=== PATIENT | male | born 1960 | race Caucasian/White ===

== ENCOUNTER 2023-10-09 08:10 | Inpatient (IN) | payer MEDICARE ==
--- NOTE | 2023-10-09 08:26 | ED ---
General Adult HPI - General Source: patient, RN notes reviewed Mode of arrival: ambulatory Limitations: no limitations <Neeraj Avila - Last Filed: 10/09/23 08:23> <Zelalem Herman - Last Filed: 10/09/23 12:18> - General Stated complaint: Foot infection Time Seen by Provider: 10/09/23 08:24 - History of Present Illness Initial comments: 63-year-old male presents emergency Department chief complaint left foot infection. Patient states that he's had a prior toe amputation states that he's had prior bacteremia sepsis from his foot. Patient states that he is increasingly painful. Patient has seen Dr. Mckeon. (Neeraj Avila) - Related Data Home Medications Medication Instructions Recorded Confirmed Dextroamphetamine/Amphetamine 30 mg PO TID 09/25/14 09/29/14 [Adderall] oxyCODONE-APAP 10-325MG [Percocet 1 each PO Q6HR PRN 09/25/14 09/29/14 10-325 mg] Allergies Allergy/AdvReac Type Severity Reaction Status Date / Time No Known Allergies Allergy Verified 09/25/14 10:09 Review of Systems ROS Other: All systems not noted in ROS Statement are negative. <Neeraj Avila - Last Filed: 10/09/23 08:23> ROS Other: All systems not noted in ROS Statement are negative. <Zelalem Herman - Last Filed: 10/09/23 12:18> ROS Statement: Those systems with pertinent positive or pertinent negative responses have been documented in the HPI. Past Medical History Past Medical History: No Reported History History of Any Multi-Drug Resistant Organisms: None Reported Past Surgical History: Orthopedic Surgery Additional Past Surgical History / Comment(s): LT KNEE SCOPE Past Anesthesia/Blood Transfusion Reactions: No Reported Reaction Past Alcohol Use History: None Reported Past Drug Use History: None Reported - Past Family History Sister(s) Family Medical History: Cancer <Neeraj Avila - Last Filed: 10/09/23 08:23> General Exam <Neeraj Avila - Last Filed: 10/09/23 08:23> General appearance: alert, in no apparent distress Head exam: Present: atraumatic, normocephalic Eye exam: Present: normal appearance, PERRL ENT exam: Present: normal exam Neck exam: Present: normal inspection. Absent: tenderness, meningismus Respiratory exam: Present: normal lung sounds bilaterally. Absent: respiratory distress, wheezes Cardiovascular Exam: Present: regular rate, normal rhythm GI/Abdominal exam: Present: soft. Absent: distended, tenderness Extremities exam: Present: other (Ulceration with purulence at the left foot had of the fifth metatarsal) Neurological exam: Present: alert, oriented X3, CN II-XII intact. Absent: motor sensory deficit Skin exam: Present: warm, other (Cellulitis of the left foot) <Zelalem Herman - Last Filed: 10/09/23 12:18> - General Exam Comments Initial Comments: Visual Physical Exam Vital signs reviewed General: Well-appearing, nontoxic, no acute distress. Head: Normocephalic, atraumatic Eyes: PERRLA, EOMI ENT: Airway patent Chest: Nonlabored breathing Skin: No visual rash, normal skin tone Neuro: Alert and oriented 3 Musculoskeletal: No gross abnormalities (Neeraj Avila) Course Vital Signs 10/09/23 10/09/23 08:51 11:15 Temperature 98.4 F Pulse Rate 85 84 Respiratory 18 18 Rate Blood Pressure 112/78 126/75 O2 Sat by Pulse 97 95 Oximetry Medical Decision Making <Neeraj Avila - Last Filed: 10/09/23 08:23> - Lab Data Result diagrams: 10/09/23 10:51 10/09/23 10:51 <Zelalem Herman - Last Filed: 10/09/23 12:18> - Medical Decision Making I completed the quick note portion of this chart signed Neeraj Avila PA-C (Neeraj Avila) Was pt. sent in by a medical professional or institution ([facility], [employer], urgent care, hospital, or longterm...) When possible be specific @ -No Did you speak to anyone other than the patient for history (EMS, parent, family, police, friend...)? What history was obtained from this source @ -No Did you review nursing and triage notes (agree or disagree)? Why? @ -I reviewed and agree with nursing and triage notes Were old charts reviewed (outside hosp., previous admission, EMS record, old EKG, old radiological studies, urgent care reports/EKG's, longterm records)? Report findings @ -No old charts were reviewed Differential Diagnosis (chest pain, altered mental status, abdominal pain women, abdominal pain men, vaginal bleeding, weakness, fever, dyspnea, syncope, headache, dizziness, GI bleed, back pain, seizure, CVA, palpatations, mental health, musculoskeletal)? @ -not applicable EKG interpreted by me (3pts min.). @ -As above X-rays interpreted by me (1pt min.). @X-ray of the left foot, amputation of the distal metatarsal and left fifth digit with some erosive changes and possible fracture at the distal site. CT interpreted by me (1pt min.). @ -None done U/S interpreted by me (1pt. min.). @ -None done What testing was considered but not performed or refused? (CT, X-rays, U/S, labs)? Why? @ -None What meds were considered but not given or refused? Why? @ -None Did you discuss the management of the patient with other professionals (professionals i.e. , PA, PLATE WORKER HELPER, lab, RT, psych nurse, social sciences professor, digital communications manager, teacher, strategic intelligence officer, major case detective)? Give summary @[facility] physician group Was smoking cessation discussed for >3mins.? @ -No Was critical care preformed (if so, how long)? @ -No Were there social determinants of health that impacted care today? How? (Homelessness, low income, unemployed, alcoholism, drug addiction, transpor tation, low edu. Level, literacy, decrease access to med. care, [facility], rehab)? @ -No Was there de-escalation of care discussed even if they declined (Discuss DNR or withdrawal of care, Hospice)? DNR status @ -No What co-morbidities impacted this encounter? (DM, HTN, Smoking, COPD, CAD, Cancer, CVA, ARF, Chemo, Hep., AIDS, mental health diagnosis, sleep apnea, morbid obesity)? @ -Diabetic, hypertensive Was patient admitted / discharged? Hospital course, mention meds given and route, prescriptions, significant lab abnormalities, going to OR and other pertinent info. @ -[63-year-old male with ulceration and cellulitis of the left foot at the base of the left fifth digit prior dictation site. Elevated white count at 15. Significant cellulitis of the foot with purulent drainage. Patient started on IV antibiotics and admitted to internal medicine. Undiagnosed new problem with uncertain prognosis? @ -No Drug Therapy requiring intensive monitoring for toxicity (Heparin, Nitro, Insulin, Cardizem)? @ -No Were any procedures done? @ -No Diagnosis/symptom? @ -Diabetic foot ulceration with cellulitis Acute, or Chronic, or Acute on Chronic? @ -[Acute Uncomplicated (without systemic symptoms) or Complicated (systemic symptoms)? @Complicated Side effects of treatment? @ -No Exacerbation, Progression, or Severe Exacerbation? @ -No Poses a threat to life or bodily function? How? (Chest pain, USA, LA, pneumonia, PE, COPD, DKA, ARF, appy, cholecystitis, CVA, Diverticulitis, Homicidal, Suicidal, threat to staff... and all critical care pts) @Yes, sepsis (Zelalem Herman) - Lab Data Lab Results 10/09/23 10/09/23 10/09/23 Range/Units 10:51 10:51 10:51 WBC 15.2 H (3.8-10.6) k/uL RBC 4.53 (4.30-5.90) m/uL Hgb 14.4 (13.0-17.5) gm/dL Hct 41.9 (39.0-53.0) % MCV 92.6 (80.0-100.0) fL MCH 31.7 (25.0-35.0) pg MCHC 34.3 (31.0-37.0) g/dL RDW 12.7 (11.5-15.5) % Plt Count 163 (150-450) k/uL MPV 8.6 Neutrophils % 85 % Lymphocytes % 11 % Monocytes % 2 % Eosinophils % 1 % Basophils % 0 % Neutrophils # 13.0 H (1.3-7.7) k/uL Lymphocytes # 1.6 (1.0-4.8) k/uL Monocytes # 0.4 (0-1.0) k/uL Eosinophils # 0.1 (0-0.7) k/uL Basophils # 0.1 (0-0.2) k/uL Sodium 133 L (137-145) mmol/L Potassium 4.6 (3.5-5.1) mmol/L Chloride 100 (98-107) mmol/L Carbon Dioxide 20 L (22-30) mmol/L Anion Gap 13 mmol/L BUN 17 (9-20) mg/dL Creatinine 0.42 L (0.66-1.25) mg/dL Est GFR (CKD-EPI)AfAm >90 (>60 ml/min/1.73 sqM) Est GFR (CKD-EPI)NonAf >90 (>60 ml/min/1.73 sqM) Glucose 288 H (74-99) mg/dL Plasma Lactic Acid Jaziel 1.1 (0.7-2.0) mmol/L Calcium 8.4 (8.4-10.2) mg/dL Total Bilirubin 0.9 (0.2-1.3) mg/dL AST 46 (17-59) U/L ALT 53 H (4-49) U/L Alkaline Phosphatase 96 (38-126) U/L C-Reactive Protein 0.6 (<1.0) mg/dL Total Protein 7.2 (6.3-8.2) g/dL Albumin 3.8 (3.5-5.0) g/dL Disposition <Neeraj Avila - Last Filed: 10/09/23 08:23> Is patient prescribed a controlled substance at d/c from ED?: No Time of Disposition: 12:18 <Zelalem Herman - Last Filed: 10/09/23 12:18> Clinical Impression: Diabetic foot ulcer, Cellulitis Disposition: ADMITTED IP TO THIS HOSP Condition: Stable Referrals: None,Stated [Primary Care Provider] - 1-2 days
--- NOTE | 2023-10-09 09:35 | XR ---
EXAMINATION TYPE: XR foot complete LT DATE OF EXAM: 10/09/2023 9:08 AM CLINICAL INDICATION:Male, 63 years old with history of pain, infection; COMPARISON: None TECHNIQUE: XR foot complete LT examined in the AP, oblique, and lateral projections. FINDINGS/IMPRESSION: 1. Postsurgical changes of the left foot fifth digit metatarsal tarsal. Lucency through the cortex c ould represent fracture possibly in the setting of osteomyelitis suggesting pathologic fracture. 2. Fixation hardware appears intact.
[2023-10-09] MEDS ORDERED: KETOROLAC 15 MG/ML 1 ML VIAL IVP STA (10:30)
[2023-10-09] MEDS ORDERED: SODIUM CHLORIDE 0.9% 1,000 ML IV ONE (10:30)
[2023-10-09 11:18] LABS: Basophils # (A) 0.1 k/uL (0-0.2); Basophils % (A) 0 %; Eosinophils # (A) 0.1 k/uL (0-0.7); Eosinophils % (A) 1 %; HCT 41.9 % (39.0-53.0); HGB 14.4 gm/dL (13.0-17.5); Lymphocytes # (A) 1.6 k/uL (1.0-4.8); Lymphocytes % (A) 11 %; MCH 31.7 pg (25.0-35.0); MCHC 34.3 g/dL (31.0-37.0); MCV 92.6 fL (80.0-100.0); Mean Platelet Volume 8.6; Monocytes # (A) 0.4 k/uL (0-1.0); Monocytes % (A) 2 %; Neutrophils % (A) 85 %; Platelet Count 163 k/uL (150-450); RBC 4.53 m/uL (4.30-5.90); RDW 12.7 % (11.5-15.5); WBC 15.2 k/uL (3.8-10.6)
[2023-10-09 11:34] LABS: ALT 53 U/L (4-49); AST 46 U/L (17-59); African American GFR (CKD) >90 (>60 ml/min/1.73 sqM); Albumin 3.8 g/dL (3.5-5.0); Alkaline Phosphatase 96 U/L (38-126); Anion Gap 13 mmol/L; Blood Urea Nitrogen 17 mg/dL (9-20); C Reactive Protein 0.6 mg/dL (<1.0); Calcium 8.4 mg/dL (8.4-10.2); Carbon Dioxide 20 mmol/L (22-30); Chloride 100 mmol/L (98-107); Glucose 288 mg/dL (74-99); Non-African American GFR(CKD) >90 (>60 ml/min/1.73 sqM); Potassium 4.6 mmol/L (3.5-5.1); Sodium 133 mmol/L (137-145); Total Bilirubin 0.9 mg/dL (0.2-1.3); Total Protein 7.2 g/dL (6.3-8.2)
[2023-10-09] MEDS ORDERED: VANCOMYCIN IV PER PHARMACY 1 EACH MISC MISCELLANE PRN (11:59)
[2023-10-09] MEDS ORDERED: MORPHINE SULFATE 4 MG/ML SYRINGE IVP STA (11:59)
[2023-10-09] MEDS ORDERED: VANCOMYCIN 1,750 MG in SODIUM CHLORIDE 0.9% 500 ML 500 ML IVPB STA (12:01)
[2023-10-09] MEDS ORDERED: NALOXONE 0.4 MG/ML 1 ML VIAL IV PRN (12:11)
[2023-10-09] MEDS ORDERED: ACETAMINOPHEN TAB 325 MG TAB PO PRN (12:11)
[2023-10-09] MEDS: SODIUM CHLORIDE 0.9% 1,000 ML IV SCH (12:58)
--- NOTE | 2023-10-09 13:55 | P.GSCN ---
History of Present Illness History of present illness: 63-year-old gentleman patient well known to me from the wound clinic and left foot toe pressure done in the past patient has a wound on the lateral aspect of the foot patient came to the emergency room with history of pain redness and swelling patient has a wound on the lateral aspect of the foot with some skin edges are devitalized extremity report possible osteo- Medical history history of diabetes, peripheral vascular disease, chronic wound left lower extremity involving the lateral aspect of the foot Chest is clear is good and both lungs first and second sound present Abdomen is soft nontender Vascular femorals are 1+ bilateral PTDP not palpable patient has a wound on the lateral aspect the left foot with some redness noted on the dorsal and plantar aspect the foot and graft plan is patient IV antibiotic patient will need some debridement and deep culture we will arrange Past Medical History Past Medical History: No Reported History History of Any Multi-Drug Resistant Organisms: None Reported Past Surgical History: Orthopedic Surgery Additional Past Surgical History / Comment(s): LT KNEE SCOPE Past Anesthesia/Blood Transfusion Reactions: No Reported Reaction Past Alcohol Use History: None Reported Past Drug Use History: None Reported - Past Family History Sister(s) Family Medical History: Cancer Medications and Allergies Home Medications Medication Instructions Recorded Confirmed Type oxyCODONE-APAP 10-325MG [Percocet 1 tab PO Q6HR PRN 09/25/14 10/09/23 History 10-325 mg] INSULIN ASPART (NovoLOG) [NovoLOG 20 unit SQ AC-TID 10/09/23 10/09/23 History (formulary)] Insulin Glargine [Lantus Vial] 70 unit SQ HS 10/09/23 10/09/23 History Allergies Allergy/AdvReac Type Severity Reaction Status Date / Time No Known Allergies Allergy Verified 10/09/23 12:34 Surgical - Exam Vital Signs Temp Pulse Resp BP Pulse Ox 98.4 F 85 18 112/78 97 10/09/23 08:51 10/09/23 08:51 10/09/23 08:51 10/09/23 08:51 10/09/23 08:51 Results - Labs 10/09/23 10:51 10/09/23 10:51 Abnormal Lab Results - Last 24 Hours (Table) 10/09/23 10/09/23 Range/Units 10:51 10:51 WBC 15.2 H (3.8-10.6) k/uL Neutrophils # 13.0 H (1.3-7.7) k/uL Sodium 133 L (137-145) mmol/L Carbon Dioxide 20 L (22-30) mmol/L Creatinine 0.42 L (0.66-1.25) mg/dL Glucose 288 H (74-99) mg/dL ALT 53 H (4-49) U/L Diabetes panel 10/09/23 Range/Units 10:51 Sodium 133 L (137-145) mmol/L Potassium 4.6 (3.5-5.1) mmol/L Chloride 100 (98-107) mmol/L Carbon Dioxide 20 L (22-30) mmol/L BUN 17 (9-20) mg/dL Creatinine 0.42 L (0.66-1.25) mg/dL Glucose 288 H (74-99) mg/dL Calcium 8.4 (8.4-10.2) mg/dL AST 46 (17-59) U/L ALT 53 H (4-49) U/L Alkaline Phosphatase 96 (38-126) U/L Total Protein 7.2 (6.3-8.2) g/dL Albumin 3.8 (3.5-5.0) g/dL Calcium panel 10/09/23 Range/Units 10:51 Calcium 8.4 (8.4-10.2) mg/dL Albumin 3.8 (3.5-5.0) g/dL Pituitary panel 10/09/23 Range/Units 10:51 Sodium 133 L (137-145) mmol/L Potassium 4.6 (3.5-5.1) mmol/L Chloride 100 (98-107) mmol/L Carbon Dioxide 20 L (22-30) mmol/L BUN 17 (9-20) mg/dL Creatinine 0.42 L (0.66-1.25) mg/dL Glucose 288 H (74-99) mg/dL Calcium 8.4 (8.4-10.2) mg/dL Adrenal panel 10/09/23 Range/Units 10:51 Sodium 133 L (137-145) mmol/L Potassium 4.6 (3.5-5.1) mmol/L Chloride 100 (98-107) mmol/L Carbon Dioxide 20 L (22-30) mmol/L BUN 17 (9-20) mg/dL Creatinine 0.42 L (0.66-1.25) mg/dL Glucose 288 H (74-99) mg/dL Calcium 8.4 (8.4-10.2) mg/dL Total Bilirubin 0.9 (0.2-1.3) mg/dL AST 46 (17-59) U/L ALT 53 H (4-49) U/L Alkaline Phosphatase 96 (38-126) U/L Total Protein 7.2 (6.3-8.2) g/dL Albumin 3.8 (3.5-5.0) g/dL
--- NOTE | 2023-10-09 13:57 | P.PCN ---
Description of Procedure: Preoperative diagnoses is infected wound left foot lateral aspect of the foot Posterior same and Procedure patient was seen in the emergency room left foot has a wound on the lateral aspect with some devitalized tissue notices of the skin edges prepped and draped applied usual sterile manner 1% lidocaine for infected using sharp kn tarsha we excise that devitalized tissue down to separate his tissue there was some pus noted is drained we took the culture for anaerobic and aerobic was irrigated with saline medihoney gel applied to the wound post wound debridement measurement is is 2 x 2 by 1 cm is changed the dressing tomorrow patient IV antibiotic vision be continued
--- NOTE | 2023-10-09 16:54 | P.HPIM ---
History of Present Illness H&P Date: 10/09/23 Chief Complaint: foot infection 63 year old man with uncontrolled type 2 diabetes and history of left fifth toe amputation presented for infected wound with pustular drainage. Patient reports increasingly painful toe with pustular drainage over the last several days as well as increasing erythema over the dorsal aspect of his foot. He also reports fevers and chills to a T-max of 101.2 at home. He has been followed at wound care by Dr. Mckeon, who recommended patient come into the hospital for further evaluation. Patient denies nausea, vomiting, chest pain, palpitations, syncope, presyncope, cough, dyspnea, abdominal pain, constipation, diarrhea, dysuria, dyschezia. Patient further relates to me that his sugars have been out of control going up to as high as 800 at home. In the emergency room, patient was afebrile, 112/78, heart rate 85, 97% on room air. CBC was notable for leukocytosis of 15.2. Basic metabolic panel notable for sodium of 133, CO2 of 20. Glucose was 288. Liver function tests notable for ALT elevation of 53. CRP was 0.6. Foot x-ray does show lucency throughout the cortex which could represent fracture possibly in the setting of o steomyelitis. Case was discussed with the emergency room provider decision was made to admit the patient to hospital for sepsis secondary to diabetic foot infection. All Systems reviewed and pertinent positives and negatives noted in HPI, all other symptoms are negative Gen: in no apparent distress, resting comfortably in bed Eyes: PERRL, no scleral injection or icterus HENT: normocephalic, atraumatic, good hearing acuity, moist mucous membranes Neck: no tracheal deviation, full range of motion Resp: good air exchange, breathing comfortably with no accessory muscle use, no tactile fremitus CVS: good distal perfusion x 4, no pitting edema GI: soft, NTTP, ND, no hepatosplenomegaly : no suprapubic tenderness, no CVAT, marinelli catheter not present MSK: no clubbing, no cyanosis, no noted contractures of extremities Skin: no noted rashes, petechiae; temperature of skin is appropriate, left fifth toe amputation, also erythema with pustular drainage Neuro: moving all extremities without signs of weakness, CN II-XII intact Psych: cooperative, euthymic mood, insight and judgment intact Labs and imaging as above Assessment/plan: Sepsis Diabetic foot infection with uncontrolled diabetes type 2 Concern for osteomyelitis -Antibiotics: Vancomycin, cefepime to cover both MRSA and Pseudomonas -ID consultation -Blood cultures pending -Vascular surgery consultation, OR cultures pending -Strict sugar control: Resume patient's Levemir 70 units with 20 units before meals 3 times a day, add sliding scale insulin -A1c ordered -Pain control: Tylenol when necessary, morphine when necessary Patient is full code Past Medical History Past Medical History: No Reported History History of Any Multi-Drug Resistant Organisms: None Reported Past Surgical History: Orthopedic Surgery Additional Past Surgical History / Comment(s): LT KNEE SCOPE Past Anesthesia/Blood Transfusion Reactions: No Reported Reaction Past Alcohol Use History: None Reported Past Drug Use History: None Reported - Past Family History Sister(s) Family Medical History: Cancer Medications and Allergies Home Medications Medication Instructions Recorded Confirmed Type oxyCODONE-APAP 10-325MG [Percocet 1 tab PO Q6HR PRN 09/25/14 10/09/23 History 10-325 mg] INSULIN ASPART (NovoLOG) [NovoLOG 20 unit SQ AC-TID 10/09/23 10/09/23 History (formulary)] Insulin Glargine [Lantus Vial] 70 unit SQ HS 10/09/23 10/09/23 History Allergies Allergy/AdvReac Type Severity Reaction Status Date / Time No Known Allergies Allergy Verified 10/09/23 12:34 Physical Exam Osteopathic Statement: *. No significant issues noted on an osteopathic structural exam other than those noted in the History and Physical/Consult. Vitals: Vital Signs Temp Pulse Resp BP Pulse Ox 10/09/23 16:00 80 18 152/83 98 10/09/23 14:46 89 30 H 143/85 99 10/09/23 12:48 82 18 124/84 97 10/09/23 11:15 84 18 126/75 95 10/09/23 08:51 98.4 F 85 18 112/78 97 Intake and Output 10/09/23 10/09/23 10/09/23 06:59 14:59 22:59 Other: Weight 102.058 kg Results CBC & Chem 7: 10/09/23 10:51 10/09/23 10:51 Labs: Abnormal Lab Results - Last 24 Hours (Table) 10/09/23 10/09/23 Range/Units 10:51 10:51 WBC 15.2 H (3.8-10.6) k/uL Neutrophils # 13.0 H (1.3-7.7) k/uL Sodium 133 L (137-145) mmol/L Carbon Dioxide 20 L (22-30) mmol/L Creatinine 0.42 L (0.66-1.25) mg/dL Glucose 288 H (74-99) mg/dL ALT 53 H (4-49) U/L
[2023-10-09 17:40] LABS: Glucose,Whole Blood 317 mg/dL (70-110)
[2023-10-09] MEDS: INSULIN ASPART (NovoLOG) 100 UNIT/ML VIAL SQ SCH ×2 (17:49)
[2023-10-09] MEDS: MORPHINE SULFATE 4 MG/ML SYRINGE IVP PRN ×2 (17:49→23:18)
[2023-10-09] MEDS: oxyCODONE-APAP 10-325MG 1 EACH TAB PO PRN (20:17)
[2023-10-09] MEDS: CEFEPIME 2 GM in SODIUM CHLORIDE 0.9% 100 ML IVPB SCH (20:17)
[2023-10-09 20:36] LABS: Glucose,Whole Blood 305 mg/dL (70-110)
[2023-10-09] MEDS: INSULIN DETEMIR (LEVEMIR) 100 UNIT/ML SYR SQ SCH (21:38)
[2023-10-09] MEDS: VANCOMYCIN 1,750 MG in SODIUM CHLORIDE 0.9% 500 ML 500 ML IVPB SCH (21:38)
[2023-10-10] MEDS: SODIUM CHLORIDE 0.9% 1,000 ML IV SCH ×2 (02:06→19:20)
[2023-10-10] MEDS: VANCOMYCIN 1,750 MG in SODIUM CHLORIDE 0.9% 500 ML 500 ML IVPB SCH ×3 (05:58→20:20)
[2023-10-10 07:21] LABS: Glucose,Whole Blood 126 mg/dL (70-110)
[2023-10-10] MEDS: INSULIN ASPART (NovoLOG) 100 UNIT/ML VIAL SQ SCH ×7 (07:36→21:54)
[2023-10-10 07:42] LABS: African American GFR (CKD) >90 (>60 ml/min/1.73 sqM); Anion Gap 8 mmol/L; Blood Urea Nitrogen 9 mg/dL (9-20); Calcium 8.3 mg/dL (8.4-10.2); Carbon Dioxide 24 mmol/L (22-30); Chloride 103 mmol/L (98-107); Glucose 112 mg/dL (74-99); Non-African American GFR(CKD) >90 (>60 ml/min/1.73 sqM); Potassium 3.5 mmol/L (3.5-5.1); Sodium 135 mmol/L (137-145)
[2023-10-10] MEDS: CEFEPIME 2 GM in SODIUM CHLORIDE 0.9% 100 ML IVPB SCH ×2 (08:54→20:20)
[2023-10-10] MEDS: MORPHINE SULFATE 4 MG/ML SYRINGE IVP PRN ×2 (09:05→21:54)
--- NOTE | 2023-10-10 09:23 | PN ---
PROGRESS NOTE This is a 63-year-old gentleman, patient is known to me. He had a left foot 5th toe amputation done in the past. The patient has a wound on the lateral aspect of the foot. He has been coming to the wound clinic for local wound care. The patient noticed some drainage and some redness on the foot from the wound area. The patient has been admitted. We did the debridement and sent for deep culture. The patient is afebrile. Plan is we change the dressing daily with Medihoney gel. The patient is under care of Infectious Disease for IV antibiotic. We will follow with you. MMODL / IJN: [id number] /
[2023-10-10 10:55] LABS: Basophils # (A) 0.06 X 10*3/uL (0.00-0.10); Basophils % (A) 0.5 %; Eosinophils # (A) 0.12 X 10*3/uL (0.04-0.35); Eosinophils % (A) 1.1 %; HCT 38.1 % (39.6-50.0); HGB 13.1 g/dL (13.0-17.0); Lymphocytes # (A) 1.91 X 10*3/uL (0.90-5.00); Lymphocytes % (A) 17.3 %; MCH 30.2 pg (27.0-32.0); MCHC 34.4 g/dL (32.0-37.0); MCV 87.8 FL (80.0-97.0); Mean Platelet Volume 11.5 FL (9.5-12.2); Monocytes # (A) 0.56 X 10*3/uL (0.20-1.00); Monocytes % (A) 5.1 %; NRBC Per 100 WBC 0 X 10*3/uL (0.00-0.01); Neutrophils # (A) 8.33 X 10*3/uL (1.80-7.70); Neutrophils % (A) 75.7 %; Platelet Count 159 X 10*3/uL (140-440); RBC 4.34 X 10*6/uL (4.40-5.60); RDW 12.4 % (11.5-14.5); WBC 11.01 X 10*3/uL (4.50-10.00)
[2023-10-10] MEDS: oxyCODONE-APAP 10-325MG 1 EACH TAB PO PRN ×2 (11:31→20:21)
[2023-10-10] MEDS ORDERED: ALPRAZolam 0.5 MG TAB PO STA (11:33)
[2023-10-10 11:50] LABS: Glucose,Whole Blood 159 mg/dL (70-110)
--- NOTE | 2023-10-10 14:08 | P.PN ---
Subjective Progress Note Date: 10/10/23 Hospital Course: 63 year old man with uncontrolled type 2 diabetes and history of left fifth toe amputation presented for infected wound with pustular drainage. In the emergency room, patient was afebrile, 112/78, heart rate 85, 97% on room air. CBC was notable for leukocytosis of 15.2. Basic metabolic panel notable for sodium of 133, CO2 of 20. Glucose was 288. Liver function tests notable for ALT elevation of 53. CRP was 0.6. Foot x-ray does show lucency throughout the cortex which could represent fracture possibly in the setting of osteomyelitis. Case was discussed with the emergency room provider decision was made to admit the patient to hospital for sepsis secondary to diabetic foot infection. Vascular surgery following patient, status post debridement. On IV antibiotics. ID consulted. Subjective: Patient seen and examined at bedside. No acute events overnight. Patient has very tearful. Does have some left foot pain. He is not very compliant with his medications. Pertinent positives and negatives as discussed above, a complete review of systems was performed and all other systems are negative. Vitals Signs Reviewed. General: nontoxic, no distress, appears at stated age Derm: warm, dry, [dressing clean, dry, intact Head: atraumatic, normocephalic, symmetric Eyes: EOMI, no lid lag, anicteric sclera Mouth: no lip lesion, mucus membranes moist Cardiovascular: S1S2 reg, no murmur Lungs: CTA bilateral, no rhonchi, no rales , no accessory muscle use Abdominal: soft, nontender to palpation, no guarding, no appreciable organomegaly Ext: no gross muscle atrophy, no edema, no contractures Neuro: CN II-XI grossly intact, no focal neuro deficits, some expressive aphasia Psych: Alert, oriented, tearful Data Reviewed Today: Pertinent Labs: WBC 11.01, sodium 135, creatinine 0.34, blood sugars range between 112-305, A1c 12.7 Imaging: No new imaging Assessment and Plan: Patient is critically ill, prognosis guarded Active: Sepsis secondary to left foot osteomyelitis status post debridement Leukocytosis, improving -Continue IV vancomycin, monitor renal function for toxicity -Vascular surgery note reviewed, wound care -ID consulted, pending recommendations -Also on IV cefepime 2 g every 12 hours -Cultures pending -Pain control with oral Tylenol 650 every 6 hours as needed, oral Percocet 10 every 6 hours as needed, morphine 4 mg IV every 4 hours as needed -Okay to continue normal saline at 75 mL an hour Insulin-dependent type 2 diabetes, A1c 12.7 Medication noncompliance -Insulin Levemir 70 units daily at bedtime, aspart 20 units 3 times a day, insulin sliding scale insulin, monitor for hypoglycemia Expressive aphasia, Depressed mood -Check B12, TSH -CT head without contrast -Neuro symptoms happening for a few days DVT ppx: Subcu heparin Code status: Full code Anticipated discharge place: Pending clinical course Anticipated discharge time: Pending clinical course Objective - Vital Signs Vital signs: Vital Signs Temp 98.5 F 10/10/23 11:44 Pulse 81 10/10/23 11:44 Resp 17 10/10/23 11:44 BP 178/83 10/10/23 11:44 Pulse Ox 98 10/10/23 11:44 FiO2 Intake & Output 10/09/23 10/10/23 10/10/23 18:59 06:59 18:59 Intake Total 2100 Output Total 1500 1250 Balance 600 -1250 Weight 99.337 kg Intake: Intake, IV Titration 1500 Amount Cefepime 2 gm In Sodium 100 Chloride 0.9% 100 ml @ 25 mls/hr IVPB Q12HR [facility] Rx #:[id number] Sodium Chloride 0.9% 1, 900 000 ml @ 75 mls/hr IV . [id number] [facility] Rx#:[id number] Vancomycin 1,750 mg In 500 Sodium Chloride 0.9% 500 ml 500 ml @ 167 mls/hr IVPB Q8H [facility] Rx#: [id number] Oral 600 Output: Urine 1500 1250 Other: Voiding Method Urinal Urinal # Voids 1 3 - Labs CBC & Chem 7: 10/10/23 06:47 10/10/23 06:47 Labs: Abnormal Lab Results - Last 24 Hours (Table) 10/09/23 10/09/23 10/10/23 Range/Units 17:38 20:35 06:47 WBC (4.50-10.00) X 10*3/uL RBC (4.40-5.60) X 10*6/uL Hct (39.6-50.0) % Neutrophils # (1.80-7.70) X 10*3/uL Sodium (137-145) mmol/L Creatinine (0.66-1.25) mg/dL Glucose (74-99) mg/dL POC Glucose (mg/dL) 317 H 305 H (70-110) mg/dL Hemoglobin A1c 12.7 H (<=6.0) % Calcium (8.4-10.2) mg/dL 10/10/23 10/10/23 10/10/23 Range/Units 06:47 06:47 07:20 WBC 11.01 H (4.50-10.00) X 10*3/uL RBC 4.34 L (4.40-5.60) X 10*6/uL Hct 38.1 L (39.6-50.0) % Neutrophils # 8.33 H (1.80-7.70) X 10*3/uL Sodium 135 L (137-145) mmol/L Creatinine 0.34 L (0.66-1.25) mg/dL Glucose 112 H (74-99) mg/dL POC Glucose (mg/dL) 126 H (70-110) mg/dL Hemoglobin A1c (<=6.0) % Calcium 8.3 L (8.4-10.2) mg/dL 10/10/23 Range/Units 11:48 WBC (4.50-10.00) X 10*3/uL RBC (4.40-5.60) X 10*6/uL Hct (39.6-50.0) % Neutrophils # (1.80-7.70) X 10*3/uL Sodium (137-145) mmol/L Creatinine (0.66-1.25) mg/dL Glucose (74-99) mg/dL POC Glucose (mg/dL) 159 H (70-110) mg/dL Hemoglobin A1c (<=6.0) % Calcium (8.4-10.2) mg/dL Microbiology - Last 24 Hours (Table) 10/09/23 13:14 Gram Stain - Preliminary Foot - Left
[2023-10-10 14:19] LABS: Magnesium 1.8 mg/dL (1.6-2.3)
[2023-10-10 15:43] LABS: T4, Free (Free Thyroxine) 1.51 ng/dL (0.78-2.19)
[2023-10-10 17:34] LABS: Glucose,Whole Blood 196 mg/dL (70-110)
--- NOTE | 2023-10-10 18:17 | CT ---
EXAMINATION TYPE: CT brain wo con CT DLP: 1133.3 mGycm, Automated exposure control for dose reduction was used. DATE OF EXAM: 10/10/2023 5:18 PM COMPARISON: None. CLINICAL INDICATION:Male, 63 years old with history of expressive aphasia, APHASIA TECHNIQUE: Brain: Axial CT images of the brain were obtained with coronal and sagittal reformats created and rev iewed. Contrast used: None. Oral contrast used: None. FINDINGS: Brain: Extra-axial spaces: No abnormal extra-axial fluid collections. Ventricular system: Dilatation in proportion to cerebral atrophy. Cerebral parenchyma: Cerebral atrophy. Appearing left right basal ganglia. No acute intraparenchymal hemorrhage or mass effect. The davenport-white junction is well differentiated. Scattered hypoattenuating areas are seen within the white matter. Cerebellum: Unremarkable. Mass effect: No evidence of midline shift. Intracranial vasculature: unremarkable Soft tissues: Normal. Calvarium/osseous structures: No depressed skull fracture. Paranasal sinuses and mastoid air cells: Mild scattered paranasal sinus disease. Visualized orbits: Orbital contents are intact. IMPRESSION: 1. No acute intracranial process. 2. Nonspecific white matter changes, likely secondary to chronic small vessel ischemic disease.
[2023-10-10 20:13] LABS: Glucose,Whole Blood 423 mg/dL (70-110)
[2023-10-10] MEDS: INSULIN DETEMIR (LEVEMIR) 100 UNIT/ML SYR SQ SCH (20:20)
[2023-10-10] MEDS ORDERED: DEXTROSE 50% SYRINGE 50 ML IVP PRN ×2 (21:44)
[2023-10-10 21:50] LABS: Glucose,Whole Blood 300 mg/dL (70-110)
[2023-10-10] MEDS ORDERED: NICOTINE 14MG/24HR PATCH TRANSDERM STA (22:40)
[2023-10-11] MEDS: SODIUM CHLORIDE 0.9% 1,000 ML IV SCH ×2 (03:08→21:39)
[2023-10-11] MEDS ORDERED: VANCOMYCIN TROUGH DUE 1 EACH MISC MISCELLANE ONE (05:00)
[2023-10-11 07:23] LABS: Glucose,Whole Blood 193 mg/dL (70-110)
[2023-10-11] MEDS: oxyCODONE-APAP 10-325MG 1 EACH TAB PO PRN ×2 (07:38→14:42)
[2023-10-11] MEDS: VANCOMYCIN 1,750 MG in SODIUM CHLORIDE 0.9% 500 ML 500 ML IVPB SCH (07:38)
[2023-10-11 08:12] LABS: African American GFR (CKD) >90 (>60 ml/min/1.73 sqM); Non-African American GFR(CKD) >90 (>60 ml/min/1.73 sqM)
[2023-10-11] MEDS: CEFEPIME 2 GM in SODIUM CHLORIDE 0.9% 100 ML IVPB SCH (09:02)
[2023-10-11] MEDS: INSULIN ASPART (NovoLOG) 100 UNIT/ML VIAL SQ SCH ×7 (09:06→21:39)
--- NOTE | 2023-10-11 09:08 | P.CONS ---
History of Present Illness - Reason for Consult Consult date: 10/10/23 Diabetic foot ulcer Requesting physician: Henrique Lilly - Chief Complaint Left foot nonhealing wound and pain x days - History of Present Illness Patient is a 63-year-old male with a past medical history significant for diabetes mellitus current everyday smoker patient presented to the hospital yesterday morning for evaluation of left foot infection apparently the patient did have a previous left fifth toe diabetic foot infection from what the patient has developed bacteremia patient now developing a wound at his left foot lateral border patient mention symptom has been going on for few days is not very clear how he developed an ulcer of the patient complaining of pain which is excruciating moderate to severe intensity without any radiation with associated swelling redness and did have some foul-smelling drainage patient has been evaluated by vascular surgery and the patient did have a debridement of the wound and deep culture did not mention if the wound was extended down to the bone patient presentation to the hospital was afebrile did have a low-grade fever of 99.1 patient was not tachycardic hypotensive or hypoxic patient did have white count of 15.2 with a left shift creatinine 0.42 ALT mildly elevated local cultures obtained which is currently pending patient is currently on cefepime and vancomycin infectious disease was consulted for further management of antibiotic therapy patient did have a x-ray of the foot for surgical changes of the left fifth digit metatarsal amputation lucency through the cortex could represent fracture possibly setting of osteomyelitis Review of Systems Positive point and negatives has been mentioned in the HPI, complete review of systems was performed and all other systems are negative Past Medical History Past Medical History: Diabetes Mellitus History of Any Multi-Drug Resistant Organisms: None Reported Past Surgical History: Orthopedic Surgery Additional Past Surgical History / Comment(s): LT KNEE SCOPE, 5th left toe amputation Past Anesthesia/Blood Transfusion Reactions: No Reported Reaction Smoking Status: Current some day smoker Past Alcohol Use History: None Reported Past Drug Use History: None Reported - Past Family History Sister(s) Family Medical History: Cancer Medications and Allergies Home Medications Medication Instructions Recorded Confirmed Type oxyCODONE-APAP 10-325MG [Percocet 1 tab PO Q6HR PRN 09/25/14 10/09/23 History 10-325 mg] INSULIN ASPART (NovoLOG) [NovoLOG 20 unit SQ AC-TID 10/09/23 10/09/23 History (formulary)] Insulin Glargine [Lantus Vial] 70 unit SQ HS 10/09/23 10/09/23 History Allergies Allergy/AdvReac Type Severity Reaction Status Date / Time No Known Allergies Allergy Verified 10/09/23 12:34 Physical Exam Vitals: Vital Signs Temp Pulse Pulse Resp BP BP Pulse Ox 10/10/23 11:44 98.5 F 81 17 178/83 98 10/10/23 07:15 98.1 F 90 17 141/85 96 10/10/23 02:02 98.4 F 72 18 137/68 99 10/09/23 22:18 18 99 10/09/23 19:45 18 10/09/23 19:40 98.1 F 89 19 139/74 96 10/09/23 17:40 98.2 F 107 H 18 155/79 99 10/09/23 17:13 99.1 F 89 24 131/76 97 10/09/23 16:00 80 18 152/83 98 10/09/23 14:46 89 30 H 143/85 99 Intake and Output 10/09/23 10/10/23 10/10/23 22:59 06:59 14:59 Intake Total 2100 Output Total 1500 1250 Balance 600 -1250 Intake: Intake, IV Titration 1500 Amount Cefepime 2 gm In Sodium 100 Chloride 0.9% 100 ml @ 25 mls/hr IVPB Q12HR [facility] Rx #:[id number] Sodium Chloride 0.9% 1, 900 000 ml @ 75 mls/hr IV . [id number] [facility] Rx#:[id number] Vancomycin 1,750 mg In 500 Sodium Chloride 0.9% 500 ml 500 ml @ 167 mls/hr IVPB Q8H [facility] Rx#: [id number] Oral 600 Output: Urine 1500 1250 Other: Voiding Method Urinal Urinal # Voids 1 3 Weight 99.337 kg GENERAL DESCRIPTION: Elderly male lying in bed, no distress. No tachypnea or accessory muscle of respiration use. HEENT: Shows Pallor , no scleral icterus. Oral mucous membrane is dry. No pharyngeal erythema or thrush NECK: Trachea central, no thyromegaly. LUNGS: Unlabored breathing. Clear to auscultation anteriorly. No wheeze or crackle. HEART: S1, S2, regular rate and rhythm. No loud murmur ABDOMEN: Soft, no tenderness , guarding or rigidity, no organomegaly EXTREMITIES: Left foot and leg to border did have a wound minimal slough some surrounding swelling redness which is tender to touch. SKIN: No rash, no masses palpable. NEUROLOGICAL: The patient is awake, alert, oriented x3, mood and affect normal. Results CBC & Chem 7: 10/10/23 06:47 10/11/23 07:10 Labs: Abnormal Lab Results - Last 24 Hours (Table) 10/09/23 10/09/23 10/10/23 Range/Units 17:38 20:35 06:47 WBC (4.50-10.00) X 10*3/uL RBC (4.40-5.60) X 10*6/uL Hct (39.6-50.0) % Neutrophils # (1.80-7.70) X 10*3/uL Sodium (137-145) mmol/L Creatinine (0.66-1.25) mg/dL Glucose (74-99) mg/dL POC Glucose (mg/dL) 317 H 305 H (70-110) mg/dL Hemoglobin A1c 12.7 H (<=6.0) % Calcium (8.4-10.2) mg/dL 10/10/23 10/10/23 10/10/23 Range/Units 06:47 06:47 07:20 WBC 11.01 H (4.50-10.00) X 10*3/uL RBC 4.34 L (4.40-5.60) X 10*6/uL Hct 38.1 L (39.6-50.0) % Neutrophils # 8.33 H (1.80-7.70) X 10*3/uL Sodium 135 L (137-145) mmol/L Creatinine 0.34 L (0.66-1.25) mg/dL Glucose 112 H (74-99) mg/dL POC Glucose (mg/dL) 126 H (70-110) mg/dL Hemoglobin A1c (<=6.0) % Calcium 8.3 L (8.4-10.2) mg/dL 10/10/23 Range/Units 11:48 WBC (4.50-10.00) X 10*3/uL RBC (4.40-5.60) X 10*6/uL Hct (39.6-50.0) % Neutrophils # (1.80-7.70) X 10*3/uL Sodium (137-145) mmol/L Creatinine (0.66-1.25) mg/dL Glucose (74-99) mg/dL POC Glucose (mg/dL) 159 H (70-110) mg/dL Hemoglobin A1c (<=6.0) % Calcium (8.4-10.2) mg/dL Microbiology - Last 24 Hours (Table) 10/09/23 13:14 Gram Stain - Preliminary Foot - Left Assessment and Plan (1) Diabetic foot infection Current Visit: Yes Status: Acute Code(s): E11.628 - TYPE 2 DIABETES MELLITUS WITH OTHER SKIN COMPLICATIONS; L08.9 - LOCAL INFECTION OF THE SKIN AND LEBLANC BCUTANEOUS TISSUE, UNSP SNOMED Code(s): 585503999 (2) Diabetic foot ulcer Current Visit: Yes Status: Acute Code(s): E11.621 - TYPE 2 DIABETES MELLITUS WITH FOOT ULCER; L97.509 - NON-PRESSURE CHRONIC ULCER OTH PRT UNSP FOOT W UNSP SEVERITY SNOMED Code(s): 137204618 Plan: 1patient presented to the hospital with left foot lateral border wound in this patient previous history of diabetic foot infection requiring amputation of the left fifth toe s/p debridement of the wound patient did have elevated white count and abnormal x-ray suspicious for osteomyelitis 2-local culture has been obtained results will be followed 3-we will check inflammatory marker check a bone scan 4-we will continue patient on cefepime and vancomycin while waiting for the culture to finalize We will follow on clinical condition and cultures to further adjust medication if needed Thank you for this consultation we will follow the patient along with you Dictation was produced using [employer] dictation software. please excuse any grammatical, word or spelling errors. Time with Patient: Greater than 30
[2023-10-11 11:29] VITALS: BMI 30.5
[2023-10-11] MEDS: MORPHINE SULFATE 4 MG/ML SYRINGE IVP PRN ×2 (11:39→21:40)
[2023-10-11] MEDS: AMPICILLIN-SULBACTAM 3 GM in SODIUM CHLORIDE 0.9% 100 ML IVPB SCH ×3 (12:59→23:54)
[2023-10-11 13:00] LABS: Glucose,Whole Blood 130 mg/dL (70-110)
--- NOTE | 2023-10-11 13:26 | P.PN ---
Subjective Progress Note Date: 10/11/23 pustular drainage. In the emergency room, patient was afebrile, 112/78, heart rate 85, 97% on room air. CBC was notable for leukocytosis of 15.2. Basic metabolic panel notable for sodium of 133, CO2 of 20. Glucose was 288. Liver function tests notable for ALT elevation of 53. CRP was 0.6. Foot x-ray does show lucency throughout the cortex which could represent fracture possibly in the setting of osteomyelitis. Case was discussed with the emergency room provider decision was made to admit the patient to hospital for sepsis secondary to diabetic foot infection. Vascular surgery following patient, status post debridement. On IV antibiotics. ID consulted. Pending bone scan. Subjective: Patient seen and examined at bedside. No acute events overnight. Does have some left foot pain. He is not very compliant with his medications, Expressive aphasia continues Pertinent positives and negatives as discussed above, a complete review of systems was performed and all other systems are negative. Vitals Signs Reviewed. General: nontoxic, no distress, appears at stated age Derm: warm, dry, [dressing clean, dry, intact Head: atraumatic, normocephalic, symmetric Eyes: EOMI, no lid lag, anicteric sclera Mouth: no lip lesion, mucus membranes moist Cardiovascular: S1S2 reg, no murmur Lungs: CTA bilateral, no rhonchi, no rales , no accessory muscle use Abdominal: soft, nontender to palpation, no guarding, no appreciable organomegaly Ext: no gross muscle atrophy, no edema, no contractures Neuro: CN II-XI grossly intact, no focal neuro deficits, some expressive aphasia Psych: Alert, oriented, tearful Data Reviewed Today: Pertinent Labs: Creatinine 0.38, blood sugars range between 130 to 300, B12 628, TSH 0.116, free T4 1 0.51 Imaging: CT head did not show any acute process Assessment and Plan: Patient is critically ill, prognosis guarded Active: Sepsis secondary to left foot osteomyelitis status post debridement Leukocytosis, improving -Discussed management with ID, started on IV Unasyn 3 g every 6 hours, bone scan pending, patient may need further debridement -Vascular surgery also following, wound care -Wound cultures growing strep group B -Pain control with oral Tylenol 650 every 6 hours as needed, oral Percocet 10 every 6 hours as needed, morphine 4 mg IV every 4 hours as needed -Okay to continue normal saline at 75 mL an hour Insulin-dependent type 2 diabetes, A1c 12.7 Medication noncompliance -Insulin Levemir 70 units daily at bedtime, aspart 20 units 3 times a day, insulin sliding scale insulin, monitor for hypoglycemia Expressive aphasia, Depressed mood -Thyroid function, B12, CT head within normal limits -Possibly related to increased anxiety/depression, patient does not take any medications at home, will start on sertraline 12.5 daily -Neuro symptoms happening for a few days DVT ppx: Subcu heparin Code status: Full code Anticipated discharge place: Pending clinical course Anticipated discharge time: Pending clinical course Objective - Vital Signs Vital signs: Vital Signs Temp 98.4 F 10/11/23 07:44 Pulse 72 10/11/23 07:44 Resp 18 10/11/23 07:44 BP 136/79 10/11/23 07:44 Pulse Ox 98 10/11/23 07:44 FiO2 Intake & Output 10/10/23 10/11/23 10/11/23 18:59 06:59 18:59 Intake Total 900 Output Total 1250 700 Balance -350 -700 Weight 99.337 kg Intake: Intake, IV Titration 900 Amount Sodium Chloride 0.9% 1, 900 000 ml @ 75 mls/hr IV . [id number] [facility] Rx#:[id number] Output: Urine 1250 700 Other: Voiding Method Urinal Urinal Urinal # Voids 3 - Labs CBC & Chem 7: 10/10/23 06:47 10/11/23 07:10 Labs: Abnormal Lab Results - Last 24 Hours (Table) 10/10/23 10/10/23 10/10/23 Range/Units 06:47 17:32 20:12 Creatinine (0.66-1.25) mg/dL POC Glucose (mg/dL) 196 H 423 H (70-110) mg/dL TSH 0.116 L (0.465-4.680) mIU/L 10/10/23 10/11/23 10/11/23 Range/Units 21:49 07:06 07:10 Creatinine 0.38 L (0.66-1.25) mg/dL POC Glucose (mg/dL) 300 H 193 H (70-110) mg/dL TSH (0.465-4.680) mIU/L 10/11/23 Range/Units 12:59 Creatinine (0.66-1.25) mg/dL POC Glucose (mg/dL) 130 H (70-110) mg/dL TSH (0.465-4.680) mIU/L Microbiology - Last 24 Hours (Table) 10/09/23 10:51 Blood Culture - Preliminary Blood 10/09/23 10:51 Blood Culture - Preliminary Blood 10/09/23 13:14 Gram Stain - Preliminary Foot - Left Wound Culture - Preliminary Strep agalactiae - (group b)
[2023-10-11] MEDS: SERTRALINE 25 MG TAB PO SCH (14:33)
--- NOTE | 2023-10-11 15:55 | NM ---
EXAMINATION TYPE: NM bone 3 phase DATE OF EXAM: 10/11/2023 COMPARISON: X-ray 10/09/2023 CLINICAL INDICATION: Male, 63 years old with history of left diabetic foot wound and abnormal xray; Triple phase bone scintigraphy was performed following the injection of 23.0 mCi Tc 99m MDP. Immedia te images and 3 hours post injection images acquired. FINDINGS: There is increased flow to the left foot. Increased soft tissue uptake is seen overlying the fifth di git. Delayed uptake is seen throughout the left fifth digit. There is a moderate intensity uptake seen along the anterior margin of the calcaneus on the right whi ch is nonspecific. Correlate with x-ray. IMPRESSION: Findings are compatible with fracture. Pathologic fracture in the differential diagnosis as the bone appears somewhat lucent on the recent x-ray. Therefore, fracture superimposed on a background of oste omyelitis in the differential diagnosis
[2023-10-11 17:16] LABS: Glucose,Whole Blood 274 mg/dL (70-110)
[2023-10-11] MEDS: NICOTINE 14MG/24HR PATCH TRANSDERM SCH (18:08)
[2023-10-11 20:58] LABS: Glucose,Whole Blood 324 mg/dL (70-110)
[2023-10-11] MEDS: INSULIN DETEMIR (LEVEMIR) 100 UNIT/ML SYR SQ SCH (21:39)
[2023-10-12] MEDS: oxyCODONE-APAP 10-325MG 1 EACH TAB PO PRN ×4 (01:18→23:40)
[2023-10-12] MEDS: AMPICILLIN-SULBACTAM 3 GM in SODIUM CHLORIDE 0.9% 100 ML IVPB SCH ×4 (06:05→23:39)
[2023-10-12 07:35] LABS: Glucose,Whole Blood 62 mg/dL (70-110)
[2023-10-12] MEDS: INSULIN ASPART (NovoLOG) 100 UNIT/ML VIAL SQ SCH ×7 (07:44→20:44)
[2023-10-12 07:51] LABS: Glucose,Whole Blood 109 mg/dL (70-110)
[2023-10-12] MEDS: NICOTINE 14MG/24HR PATCH TRANSDERM SCH (08:15)
[2023-10-12] MEDS: SERTRALINE 25 MG TAB PO SCH (08:16)
[2023-10-12 11:08] LABS: Basophils # (A) 0.04 X 10*3/uL (0.00-0.10); Basophils % (A) 0.4 %; Eosinophils # (A) 0.14 X 10*3/uL (0.04-0.35); Eosinophils % (A) 1.5 %; HCT 39.2 % (39.6-50.0); HGB 13.7 g/dL (13.0-17.0); Lymphocytes # (A) 1.76 X 10*3/uL (0.90-5.00); Lymphocytes % (A) 18.4 %; MCH 30.6 pg (27.0-32.0); MCHC 34.9 g/dL (32.0-37.0); MCV 87.7 FL (80.0-97.0); Monocytes # (A) 0.59 X 10*3/uL (0.20-1.00); Monocytes % (A) 6.2 %; NRBC Per 100 WBC 0 X 10*3/uL (0.00-0.01); Neutrophils # (A) 7.01 X 10*3/uL (1.80-7.70); Neutrophils % (A) 73.3 %; Platelet Count 157 X 10*3/uL (140-440); RBC 4.47 X 10*6/uL (4.40-5.60); RDW 12.5 % (11.5-14.5); WBC 9.56 X 10*3/uL (4.50-10.00)
[2023-10-12 11:36] LABS: C Reactive Protein <0.30 mg/dL (0.00-0.80); Glucose 53 mg/dL (70-110)
[2023-10-12 11:37] LABS: Calcium 8.7 mg/dL (8.7-10.3); Carbon Dioxide 26.3 mmol/L (21.6-31.8); Chloride 105 mmol/L (96-109); Potassium 3.4 mmol/L (3.5-5.5); Sodium 142 mmol/L (135-145)
[2023-10-12 12:00] LABS: Glucose,Whole Blood 159 mg/dL (70-110)
[2023-10-12 12:13] LABS: Erythrocyte Sedimentation Rate 18 mm/Hr (0-20)
[2023-10-12] MEDS: MORPHINE SULFATE 4 MG/ML SYRINGE IVP PRN ×2 (12:16→19:51)
--- NOTE | 2023-10-12 12:55 | P.PN ---
Subjective Progress Note Date: 10/12/23 Hospital Course: 63 year old man with uncontrolled type 2 diabetes and history of left fifth toe amputation presented for infected wound with pustular drainage. In the emergency room, patient was afebrile, 112/78, heart rate 85, 97% on room air. CBC was notable for leukocytosis of 15.2. Basic metabolic panel notable for sodium of 133, CO2 of 20. Glucose was 288. Liver function tests notable for ALT elevation of 53. CRP was 0.6. Foot x-ray does show lucency throughout the cortex which could represent fracture possibly in the setting of osteomyelitis. Case was discussed with the emergency room provider decision was made to admit the patient to hospital for sepsis secondary to diabetic foot infection. Vascular surgery following patient, status post debridement. On IV antibiotics. ID consulted. Bone scan shows fracture superimposed on background of osteomyelitis likely Subjective: Patient seen and examined at bedside. No acute events overnight. Continues to have left foot pain. Pertinent positives and negatives as discussed above, a complete review of systems was performed and all other systems are negative. Vitals Signs Reviewed. General: nontoxic, no distress, appears at stated age Derm: warm, dry, [dressing clean, dry, intact Head: atraumatic, normocephalic, symmetric Eyes: EOMI, no lid lag, anicteric sclera Mouth: no lip lesion, mucus membranes moist Cardiovascular: S1S2 reg, no murmur Lungs: CTA bilateral, no rhonchi, no rales , no accessory muscle use Abdominal: soft, nontender to palpation, no guarding, no appreciable organomegaly Ext: no gross muscle atrophy, no edema, no contractures Neuro: CN II-XI grossly intact, no focal neuro deficits, some expressive aphasia Psych: Alert, oriented, tearful Data Reviewed Today: Pertinent Labs: WBC 9.56, hemoglobin 13.7, potassium 3.4, creatinine 0.4, negative CRP, blood sugars range between 53-159 Imaging: Bone scan shows fracture superimposed on a background of posterior mellitus very likely Assessment and Plan: Patient is critically ill, prognosis guarded Active: Left foot osteomyelitis status post debridement Echevarria foot fracture Sepsis, resolved Leukocytosis, resolved -ID following, on IV Unasyn 3 g every 6 hours -Vascular surgery also following, wound care -Wound cultures growing strep group B -Pain control with oral Tylenol 650 every 6 hours as needed, oral Percocet 10 every 6 hours as needed, morphine 4 mg IV every 4 hours as needed -Okay to continue normal saline at 75 mL an hour Insulin-dependent type 2 diabetes, A1c 12.7 Medication noncompliance Episode of hypoglycemia -Insulin decreased to Levemir 55 units daily at bedtime, aspart 20 units 3 times a day, insulin sliding scale insulin, monitor for hypoglycemia Expressive aphasia, resolving Depressed mood -Thyroid function, B12, CT head within normal limits -Possibly related to increased anxiety/depression, patient does not take any medications at home, started on sertraline 12.5 daily -Neuro symptoms happening for a few days DVT ppx: Subcu heparin Code status: Full code Anticipated discharge place: Pending clinical course Anticipated discharge time: Pending clinical course Objective - Vital Signs Vital signs: Vital Signs Temp 98 F 10/12/23 12:49 Pulse 77 10/12/23 12:49 Resp 19 10/12/23 12:49 BP 131/74 10/12/23 12:49 Pulse Ox 98 10/12/23 12:49 FiO2 Intake & Output 10/11/23 10/12/23 10/12/23 18:59 06:59 18:59 Intake Total 750 120 240 Output Total 600 2300 Balance 150 -2180 240 Weight 99.337 kg Intake: Oral 750 120 240 Output: Urine 600 2300 Other: Voiding Method Urinal Urinal Urinal # Voids 1 - Labs CBC & Chem 7: 10/12/23 06:56 10/12/23 06:56 Labs: Abnormal Lab Results - Last 24 Hours (Table) 10/11/23 10/11/23 10/11/23 Range/Units 12:59 17:14 20:55 Hct (39.6-50.0) % Potassium (3.5-5.5) mmol/L BUN (9.0-27.0) mg/dL Creatinine (0.6-1.5) mg/dL Glucose (70-110) mg/dL POC Glucose (mg/dL) 130 H 274 H 324 H (70-110) mg/dL 10/12/23 10/12/23 10/12/23 Range/Units 06:56 06:56 07:24 Hct 39.2 L (39.6-50.0) % Potassium 3.4 L (3.5-5.5) mmol/L BUN 8.0 L (9.0-27.0) mg/dL Creatinine 0.4 L (0.6-1.5) mg/dL Glucose 53 L (70-110) mg/dL POC Glucose (mg/dL) 62 L (70-110) mg/dL 10/12/23 Range/Units 11:56 Hct (39.6-50.0) % Potassium (3.5-5.5) mmol/L BUN (9.0-27.0) mg/dL Creatinine (0.6-1.5) mg/dL Glucose (70-110) mg/dL POC Glucose (mg/dL) 159 H (70-110) mg/dL Microbiology - Last 24 Hours (Table) 10/09/23 13:14 Anaerobic Culture - Preliminary Foot - Left Yeast 10/09/23 10:51 Blood Culture - Preliminary Blood 10/09/23 10:51 Blood Culture - Preliminary Blood 10/09/23 13:14 Gram Stain - Final Foot - Left Wound Culture - Final Strep agalactiae - (group b)
[2023-10-12] MEDS: SODIUM CHLORIDE 0.9% 1,000 ML IV SCH ×2 (13:17→20:46)
--- NOTE | 2023-10-12 14:44 | P.PN ---
Subjective Progress Note Date: 10/12/23 Principal diagnosis: Reason for follow-up is left diabetic foot infection and question of osteomyelitis Patient is a 63-year-old male with a past medical history significant for diabetes mellitus current everyday smoker patient presented to the hospital for evaluation of left foot infection, patient did have a wound on the left foot lateral border status post debridement he did have abnormal x-ray suspicious for osteomyelitis On today's evaluation that is 10/12/2023, the patient continues to be afebrile and is breathing comfortably on room air, and patient denies any shortness of breath, chest pain and no cough or sputum production, patient denies abdominal pain, no nausea/vomiting and no diarrhea has been reported, the patient pain to the left foot has decreased intensity Patient did have a white count normalized to 9.56, patient did have a ESR of 18 and a normal CRP bone scan with a question of fracture Objective - Vital Signs Vital signs: Vital Signs Temp 98 F 10/12/23 12:49 Pulse 77 10/12/23 12:49 Resp 19 10/12/23 12:49 BP 131/74 10/12/23 12:49 Pulse Ox 98 10/12/23 12:49 FiO2 Intake & Output 10/11/23 10/12/23 10/12/23 18:59 06:59 18:59 Intake Total 750 120 480 Output Total 600 2300 Balance 150 -2180 480 Weight 99.337 kg Intake: Oral 750 120 480 Output: Urine 600 2300 Other: Voiding Method Urinal Urinal Urinal # Voids 1 - Exam GENERAL DESCRIPTION: An elderly male lying in bed in no distress RESPIRATORY SYSTEM: Unlabored breathing , clear to auscultation anteriorly HEART: S1 S2 regular rate and rhythm , ABDOMEN: Soft , no tenderness EXTREMITIES: Left foot is currently dressed no drainage on the dressing - Labs CBC & Chem 7: 10/12/23 06:56 10/12/23 06:56 Labs: Abnormal Lab Results - Last 24 Hours (Table) 10/11/23 10/11/23 10/12/23 Range/Units 17:14 20:55 06:56 Hct 39.2 L (39.6-50.0) % Potassium (3.5-5.5) mmol/L BUN (9.0-27.0) mg/dL Creatinine (0.6-1.5) mg/dL Glucose (70-110) mg/dL POC Glucose (mg/dL) 274 H 324 H (70-110) mg/dL 10/12/23 10/12/23 10/12/23 Range/Units 06:56 07:24 11:56 Hct (39.6-50.0) % Potassium 3.4 L (3.5-5.5) mmol/L BUN 8.0 L (9.0-27.0) mg/dL Creatinine 0.4 L (0.6-1.5) mg/dL Glucose 53 L (70-110) mg/dL POC Glucose (mg/dL) 62 L 159 H (70-110) mg/dL Microbiology - Last 24 Hours (Table) 10/09/23 13:14 Anaerobic Culture - Preliminary Foot - Left Yeast 10/09/23 10:51 Blood Culture - Preliminary Blood 10/09/23 10:51 Blood Culture - Preliminary Blood 10/09/23 13:14 Gram Stain - Final Foot - Left Wound Culture - Final Strep agalactiae - (group b) Assessment and Plan (1) Diabetic foot infection Current Visit: Yes Status: Acute Code(s): E11.628 - TYPE 2 DIABETES MELLITUS WITH OTHER SKIN COMPLICATIONS; L08.9 - LOCAL INFECTION OF THE SKIN AND SUBCUTANEOUS TISSUE, UNSP SNOMED Code(s): 876658936 (2) Diabetic foot ulcer Current Visit: Yes Status: Acute Code(s): E11.621 - TYPE 2 DIABETES MELLITUS WITH FOOT ULCER; L97.509 - NON-PRESSURE CHRONIC ULCER OTH PRT UNSP FOOT W UNSP SEVERITY SNOMED Code(s): 358343816 Plan: 1patient presented to the hospital with left foot lateral border wound in this patient previous history of diabetic foot infection requiring amputation of the left fifth toe s/p debridement of the wound patient did have elevated white count and abnormal x-ray suspicious for osteomyelitis 2-local culture has been obtained and currently growing group B strep 3- patient did have a normal inflammatory marker and bone scan is not very convincing of osteomyelitis will review with the radiologist 4-for now Continue with Unasyn and monitor clinical course closely Dictation was produced using [employer] dictation software. please excuse any grammatical, word or spelling errors. Time with Patient: Less than 30
[2023-10-12 17:11] LABS: Glucose,Whole Blood 309 mg/dL (70-110)
[2023-10-12 20:12] LABS: Glucose,Whole Blood 229 mg/dL (70-110)
[2023-10-12] MEDS ORDERED: INSULIN DETEMIR (LEVEMIR) 100 UNIT/ML SYR SQ SCH (21:00)
[2023-10-13] MEDS: SODIUM CHLORIDE 0.9% 1,000 ML IV SCH (02:55)
[2023-10-13] MEDS: AMPICILLIN-SULBACTAM 3 GM in SODIUM CHLORIDE 0.9% 100 ML IVPB SCH ×2 (05:30→12:06)
[2023-10-13] MEDS: oxyCODONE-APAP 10-325MG 1 EACH TAB PO PRN ×2 (05:30→13:24)
[2023-10-13 07:41] LABS: Glucose,Whole Blood 290 mg/dL (70-110)
[2023-10-13] MEDS: MORPHINE SULFATE 4 MG/ML SYRINGE IVP PRN (08:22)
[2023-10-13] MEDS: INSULIN ASPART (NovoLOG) 100 UNIT/ML VIAL SQ SCH ×4 (08:23→13:31)
[2023-10-13] MEDS: NICOTINE 14MG/24HR PATCH TRANSDERM SCH (08:24)
[2023-10-13] MEDS: SERTRALINE 25 MG TAB PO SCH (08:24)
[2023-10-13 09:11] LABS: Magnesium 1.8 mg/dL (1.5-2.4)
[2023-10-13 09:13] LABS: Blood Urea Nitrogen 13.7 mg/dL (9.0-27.0); Calcium 8.6 mg/dL (8.7-10.3); Carbon Dioxide 26.7 mmol/L (21.6-31.8); Chloride 102 mmol/L (96-109); Glucose 277 mg/dL (70-110); Potassium 4.1 mmol/L (3.5-5.5); Sodium 137 mmol/L (135-145)
--- NOTE | 2023-10-13 12:18 | P.PN ---
Subjective Progress Note Date: 10/13/23 Principal diagnosis: Reason for follow-up is left diabetic foot infection and question of osteomyelitis Patient is a 63-year-old male with a past medical history significant for diabetes mellitus current everyday smoker patient presented to the hospital for evaluation of left foot infection, patient did have a wound on the left foot lateral border status post debridement he did have abnormal x-ray suspicious for osteomyelitis On today's evaluation that is 10/13/2023, the patient remains to be afebrile and is breathing comfortably on room air and no need for oxygen, and patient denies chest pain shortness of breath, and no cough or sputum production, patient denies nausea/vomiting, denies having any diarrhea and no abdominal pain, the patient pain to the left foot has decreased intensity Patient did have a white count normalized to 9.56, patient did have a ESR of 18 and a normal CRP bone scan was reviewed with radiologist and suspicious for osteomyelitis Objective - Vital Signs Vital signs: Vital Signs Temp 98.2 F 10/13/23 07:44 Pulse 72 10/13/23 07:44 Resp 18 10/13/23 07:44 BP 132/72 10/13/23 07:44 Pulse Ox 99 10/13/23 07:44 FiO2 Intake & Output 10/12/23 10/13/23 10/13/23 18:59 06:59 18:59 Intake Total 1260 Output Total 700 Balance 560 Weight 99.337 kg Intake: Oral 1260 Output: Urine 700 Other: Voiding Method Urinal Urinal # Voids 2 - Exam GENERAL DESCRIPTION: An elderly male lying in bed in no distress RESPIRATORY SYSTEM: Unlabored breathing , clear to auscultation anteriorly HEART: S1 S2 regular rate and rhythm , ABDOMEN: Soft , no tenderness EXTREMITIES: Left foot is currently dressed no drainage on the dressing - Labs CBC & Chem 7: 10/12/23 06:56 10/13/23 05:26 Labs: Abnormal Lab Results - Last 24 Hours (Table) 10/12/23 10/12/23 10/13/23 Range/Units 17:07 20:10 05:26 Creatinine 0.5 L (0.6-1.5) mg/dL BUN/Creatinine Ratio 27.40 H (12.00-20.00) Ratio Glucose 277 H (70-110) mg/dL POC Glucose (mg/dL) 309 H 229 H (70-110) mg/dL Calcium 8.6 L (8.7-10.3) mg/dL 10/13/23 Range/Units 07:31 Creatinine (0.6-1.5) mg/dL BUN/Creatinine Ratio (12.00-20.00) Ratio Glucose (70-110) mg/dL POC Glucose (mg/dL) 290 H (70-110) mg/dL Calcium (8.7-10.3) mg/dL Microbiology - Last 24 Hours (Table) 10/09/23 13:14 Anaerobic Culture - Preliminary Foot - Left Alicia species, not albicans 10/09/23 10:51 Blood Culture - Preliminary Blood 10/09/23 10:51 Blood Culture - Preliminary Blood Assessment and Plan (1) Diabetic foot infection Current Visit: Yes Status: Acute Code(s): E11.628 - TYPE 2 DIABETES MELLITUS WITH OTHER SKIN COMPLICATIONS; L08.9 - LOCAL INFECTION OF THE SKIN AND SUBCUTANEOUS TISSUE, UNSP SNOMED Code(s): 186742050 (2) Diabetic foot ulcer Current Visit: Yes Status: Acute Code(s): E11.621 - TYPE 2 DIABETES MELLITUS WITH FOOT ULCER; L97.509 - NON-PRESSURE CHRONIC ULCER OTH PRT UNSP FOOT W UNSP SEVERITY SNOMED Code(s): 340774762 Plan: 1patient presented to the hospital with left foot lateral border wound in this patient previous history of diabetic foot infection requiring amputation of the left fifth toe s/p debridement of the wound patient did have elevated white count and abnormal x-ray suspicious for osteomyelitis 2-local culture has been obtained and currently growing group B strep 3- patient did have a normal inflammatory marker and bone scan was reviewed with radiologist and suggestive of osteomyelitis Patient is currently on Unasyn however plan is for Rocephin 2 g daily and oral Flagyl 500 mg 3 times a day for 6 weeks PICC line has been ordered discussed with the admitting team Dictation was produced using [employer] software. please excuse any grammatical, word or spelling errors. Time with Patient: Greater than 30
--- NOTE | 2023-10-13 12:59 | IR ---
PICC LINE PLACEMENT: HISTORY: Infection requiring long-term antibiotic therapy PROCEDURE: Ultrasound and fluoroscopic guidance of PICC line placement. COMPLICATIONS: None ANESTHESIA: 1. 1% Lidocaine locally. FINDINGS/TECHNIQUE: The procedure was explained to the patient. The risks, complications, benefits and alternatives were discussed and any questions were answered. Informed consent was obtained. The patient was placed supine on the fluoroscopic table and prepped and draped in the usual sterile fash ion. Utilizing a 21 gauge needle and sonographic and fluoroscopic guidance, access in the left basi lic vein was achieved and there is placement of a 0.018 guidewire. The vein is patent. A 4-F sheath was placed over the guidewire. The guidewire and dilator were removed and a 4-F. PICC line was plac ed through the sheath with the tip at the level of the SVC. The sheath was removed, the catheter was flushed and sutured into position. The patient was stable throughout the procedure and remained sta ble upon discharge from the Department of Radiology. The vein puncture was patent under ultrasound. A davenport scale image was obtained to document patency of the vein punctured. All elements of the maximal barrier technique were utilized. FLUOROSCOPY TIME: DAP [id number] cm2 IMPRESSION: Successful PICC line placement under ultrasound and fluoroscopic guidance.
[2023-10-13 13:30] LABS: Glucose,Whole Blood 186 mg/dL (70-110)
[2023-10-13 14:39] VITALS: BP 149/79; PULSE 70; RESP 17; TEMP 98
--- NOTE | 2023-10-13 15:35 | P.DS ---
Providers Date of admission: 10/09/23 12:12 Expected date of discharge: 10/13/23 Attending physician: Henrique Lilly MD Consults: 10/09/23 12:22 Consult Physician Routine Consulting Provider: Miguel Mckeon Consult Reason/Comments: Ulceration, cellulitis, prior dictation Do you want consulting provider notified?: Yes 10/09/23 16:51 Consult Physician Routine Consulting Provider: Kellie Giles Consult Reason/Comments: diabetic foot ulcer Do you want consulting provider notified?: Yes Primary care physician: Stated None Hospital Course: Discharge Diagnosis: Left foot osteomyelitis status post debridement Sepsis Leukocytosis Insulin-dependent type 2 diabetes, A1c 12.7 Medication noncompliance Episode of hypoglycemia Depressed mood Hospital Course: 63 year old man with uncontrolled type 2 diabetes and history of left fifth toe amputation presented for infected wound with pustular drainage. In the emergency room, patient was afebrile, 112/78, heart rate 85, 97% on room air. CBC was notable for leukocytosis of 15.2. Basic metabolic panel notable for sodium of 133, CO2 of 20. Glucose was 288. Liver function tests notable for ALT elevation of 53. CRP was 0.6. Foot x-ray does show lucency throughout the cortex which could represent fracture possibly in the setting of osteomyelitis. Case was discussed with the emergency room provider decision was made to admit the patient to hospital for sepsis secondary to diabetic foot infection. Vascular surgery following patient, status post debridement. On IV antibiotics. ID consulted. Bone scan shows possible fracture superimposed on background of osteomyelitis. He had a PICC line placed. Patient being discharged home with IV Rocephin and oral Flagyl for total of 6 weeks. He will follow up with ID, and wound care. Home care set up. Patient will come to the infusion center for IV antibiotics. Insulin administration teaching also done. Patient seen and examined at bedside. Vital signs reviewed and stable. General: nontoxic, no distress, appears at stated age Derm: warm, dry, dressing clean, dry, intact Head: atraumatic, normocephalic, symmetric Eyes: EOMI, no lid lag, anicteric sclera Mouth: no lip lesion, mucus membranes moist Cardiovascular: S1S2 reg, no murmur Lungs: CTA bilateral, no rhonchi, no rales , no accessory muscle use Abdominal: soft, nontender to palpation, no guarding, no appreciable organomegaly Ext: no gross muscle atrophy, no edema, no contractures Neuro: CN II-XI grossly intact, no focal neuro deficits Psych: Alert, oriented, appropriate affect A total of 33 minutes of time were spent preparing this complex discharge summary. Patient was discharged on 10/13/23 at 15:21. Patient Condition at Discharge: Stable Plan - Discharge Summary Discharge Rx Participant: Yes New Discharge Prescriptions: New Sertraline [Zoloft] 12.5 mg PO DAILY #60 tab metroNIDAZOLE [Flagyl] 500 mg PO TID #135 tab cefTRIAXone [Rocephin] 2 gm IM Q24H #42 each Continue oxyCODONE-APAP 10-325MG [Percocet 10-325 mg] 1 tab PO Q6HR PRN PRN Reason: Pain Changed Insulin Glargine [Lantus Vial] 55 unit SQ HS #7 each INSULIN ASPART (NovoLOG) [NovoLOG (formulary)] 10 unit SQ AC-TID #7 each Discharge Medication List oxyCODONE-APAP 10-325MG [Percocet 10-325 mg] 1 tab PO Q6HR PRN 09/25/14 [History] INSULIN ASPART (NovoLOG) [NovoLOG (formulary)] 10 unit SQ AC-TID #7 each 10/13/23 [Rx] Insulin Glargine [Lantus Vial] 55 unit SQ HS #7 each 10/13/23 [Rx] Sertraline [Zoloft] 12.5 mg PO DAILY #60 tab 10/13/23 [Rx] cefTRIAXone [Rocephin] 2 gm IM Q24H #42 each 10/13/23 [Rx] metroNIDAZOLE [Flagyl] 500 mg PO TID #135 tab 10/13/23 [Rx] Follow up Appointment(s)/Referral(s): [facility],Infusion [NON-STAFF] - 10/14/23 ([facility] will call pt to arrange a time for infusion tomorrow 10/14/23. ) None,Stated [Primary Care Provider] - 1-2 days [facility] [NON-STAFF] - 1 Week Kellie Giles MD [STAFF PHYSICIAN] - 1 Week [facility]iting [facility], [NON-STAFF] - 1 Week ([facility] will call within 24 to 48 hours to schedule a visit. ) Patient Instructions/Handouts: Osteomyelitis (DC), Type 2 Diabetes Management for Adults (DC) Activity/Diet/Wound Care/Special Instructions: Please see your PCP, ID and wound care. Discharge Disposition: HOME WITH HOME HEALTH SERVICES
--- NOTE | 2023-10-14 00:32 | PN ---
PROGRESS NOTE SUBJECTIVE: This 63-year-old gentleman is known to me from the past. The patient had wound on the lateral aspect of the foot. We will continue local wound care and IV antibiotic. Patient had a bone scan done. Today, the patient had a PICC line done under care of Infectious Disease. If the patient goes home, then he is to follow up in the wound clinic. Continue with local wound care and IV antibiotic. MMODL / IJN: [id number] /
== END 2023-10-13 17:04 | disposition home health service (06) | DRG 872 ==
LOC: EC 08:10 → 5NMEDONC 12:12
PROVIDERS: ADMIT Internal Medicine; ATTEND Internal Medicine
PROC: 0HBNXZZ Excision of Left Foot Skin, External Approach (ICD-10-PCS; principal; 2023-10-09)
PROC: 02HV33Z Insertion of Infusion Device into Superior Vena Cava, Percutaneous Approach (ICD-10-PCS; 2023-10-13)
PROC: B548ZZA Ultrasonography of Superior Vena Cava, Guidance (ICD-10-PCS; 2023-10-13)
PROC: B5181ZA Fluoroscopy of Superior Vena Cava using Low Osmolar Contrast, Guidance (ICD-10-PCS; 2023-10-13)
DX: A41.9 Sepsis, unspecified organism (principal); R47.01 Aphasia; M86.8X7 Other osteomyelitis, ankle and foot; L03.116 Cellulitis of left lower limb; E11.628 Type 2 diabetes mellitus with other skin complications; E11.69 Type 2 diabetes mellitus with other specified complication; E11.51 Type 2 diabetes mellitus with diabetic peripheral angiopathy without gangrene; E11.621 Type 2 diabetes mellitus with foot ulcer; Z79.4 Long term (current) use of insulin; Z91.148 Patient's other noncompliance with medication regimen for other reason; F32.A Depression, unspecified; E11.649 Type 2 diabetes mellitus with hypoglycemia without coma; F41.9 Anxiety disorder, unspecified; F17.210 Nicotine dependence, cigarettes, uncomplicated; B37.2 Candidiasis of skin and nail; I10 Essential (primary) hypertension; I25.10 Atherosclerotic heart disease of native coronary artery without angina pectoris; L97.529 Non-pressure chronic ulcer of other part of left foot with unspecified severity; Z79.2 Long term (current) use of antibiotics; Z89.422 Acquired absence of other left toe(s)
CPT/HCPCS: 36415; 36573; 70450; 78315; 80048; 80053; 80202; 82565; 82607; 83036; 83605; 83735; 84439; 84443; 85025; 85652; 86140; 87040; 87070; 87075; 87205; 96365; 96366; 96367; 96375; 99284

== ENCOUNTER 2024-05-05 14:49 | Inpatient (IN) | payer MEDICARE ==
[2024-05-05] MEDS: MORPHINE SULFATE 4 MG/ML SYRINGE IVP STA (15:34)
[2024-05-05 15:51] LABS: INR 0.9 (<1.2); Partial Thromboplastin Time 23.4 sec (22.0-30.0); Prothrombin Time 10.4 sec (10.0-12.5)
[2024-05-05 15:53] LABS: ALT 51 U/L (4-49); AST 35 U/L (17-59); African American GFR (CKD) >90 (>60 ml/min/1.73 sqM); Albumin 4.3 g/dL (3.5-5.0); Alkaline Phosphatase 90 U/L (38-126); Anion Gap 12 mmol/L; Blood Urea Nitrogen 15 mg/dL (9-20); C Reactive Protein <0.5 mg/dL (<1.0); Calcium 9.3 mg/dL (8.4-10.2); Carbon Dioxide 20 mmol/L (22-30); Chloride 101 mmol/L (98-107); Glucose 466 mg/dL (74-99); Non-African American GFR(CKD) >90 (>60 ml/min/1.73 sqM); Potassium 4.5 mmol/L (3.5-5.1); Sodium 133 mmol/L (137-145); Total Bilirubin 0.7 mg/dL (0.2-1.3); Total Protein 7.2 g/dL (6.3-8.2)
--- NOTE | 2024-05-05 15:56 | ED ---
Weakness HPI - General Chief complaint: Weakness Stated complaint: post-op pain L foot Source: patient Mode of arrival: ambulatory Limitations: no limitations - History of Present Illness Initial comments: 63-year-old male with past medical history diabetes who presents emergency de partment with general weakness. States that for the past week he has become more weak. He has more pain in his left foot. He does have history of previous amputations due to diabetic foot ulcers. Patient is concerned that due to the pain he is having recurrence of his infection. He denies any pustular drainage from the site. He does have a large skin callus. States that his sensation is decreased in that extremity at baseline. He denies chest pain. No fevers but has chills. No sick contacts with similar symptoms. Denies cough. No abdominal pain. No changes in his urination. No other alleviating, precipitating modifying factors - Related Data Home Medications Medication Instructions Recorded Confirmed Insulin Glargine [Lantus Vial] 30 unit SQ DAILY 05/05/24 05/05/24 Previous Rx's Medication Instructions Recorded Ibuprofen [Motrin] 400 mg PO Q6HR PRN 30 Days #90 tab 05/10/24 Multivitamins, Thera [Multivitamin 1 each PO DAILY@1200 tab 05/10/24 (formulary)] cefTRIAXone [Rocephin] 2 gm IVPB Q24HR each 05/10/24 cefTRIAXone [Rocephin] 2,000 mg IVP Q24HR #42 each 05/10/24 metroNIDAZOLE [Flagyl] 500 mg PO TID #90 tab 05/10/24 Allergies Allergy/AdvReac Type Severity Reaction Status Date / Time No Known Allergies Allergy Verified 05/05/24 14:55 Review of Systems ROS Statement: Those systems with pertinent positive or pertinent negative responses have been documented in the HPI. ROS Other: All systems not noted in ROS Statement are negative. Past Medical History Past Medical History: Diabetes Mellitus History of Any Multi-Drug Resistant Organisms: None Reported Past Surgical History: Orthopedic Surgery Additional Past Surgical History / Comment(s): LT KNEE SCOPE, 5th left toe amputation Past Anesthesia/Blood Transfusion Reactions: No Reported Reaction Past Psychological History: No Psychological Hx Reported Smoking Status: Current some day smoker Past Alcohol Use History: None Reported Past Drug Use History: None Reported - Past Family History Sister(s) Family Medical History: Cancer General Exam Limitations: no limitations General appearance: alert, in no apparent distress Head exam: Present: atraumatic, normocephalic, normal inspection Eye exam: Present: normal appearance, PERRL, EOMI. Absent: scleral icterus, conjunctival injection, periorbital swelling ENT exam: Present: normal exam, mucous membranes moist Neck exam: Present: normal inspection. Absent: tenderness, meningismus, lymphad enopathy Respiratory exam: Present: normal lung sounds bilaterally. Absent: respiratory distress, wheezes, rales, rhonchi, stridor Cardiovascular Exam: Present: regular rate, normal rhythm, normal heart sounds. Absent: systolic murmur, diastolic murmur, rubs, gallop, clicks GI/Abdominal exam: Present: soft, normal bowel sounds. Absent: distended, tenderness, guarding, rebound, rigid Extremities exam: Present: normal inspection, full ROM, normal capillary refill, other (Amputation of fourth and fifth digit on the left. Adjacent skin callus). Absent: tenderness, pedal edema, joint swelling, calf tenderness Back exam: Present: normal inspection Neurological exam: Present: alert, oriented X3, CN II-XII intact Psychiatric exam: Present: normal affect, normal mood Skin exam: Present: warm, dry, intact, normal color. Absent: rash Course Vital Signs 05/05/24 05/05/24 05/05/24 14:52 16:50 18:22 Temperature 97.5 F L Pulse Rate 92 70 75 Respiratory 18 16 18 Rate Blood Pressure 138/86 124/71 138/74 O2 Sat by Pulse 99 99 96 Oximetry Medical Decision Making - Medical Decision Making Was pt. sent in by a medical professional or institution (ROBERTO Winchester, STOCK ANALYST, urgent care, hospital, or longterm...) When possible be specific @ -No Did you speak to anyone other than the patient for history (EMS, parent, family, police, friend...)? What history was obtained from this source @ -No Did you review nursing and triage notes (agree or disagree)? Why? @ -I reviewed and agree with nursing and triage notes Were old charts reviewed (outside hosp., previous admission, EMS record, old EKG, old radiological studies, urgent care reports/EKG's, longterm records)? Report findings @ -No old charts were reviewed Differential Diagnosis (chest pain, altered mental status, abdominal pain women, abdominal pain men, vaginal bleeding, weakness, fever, dyspnea, syncope, headache, dizziness, GI bleed, back pain, seizure, CVA, palpatations, mental health, musculoskeletal)? @ -Differential Musculoskeletal Muscular strain, contusion, ligament sprain, fracture, arthritis, septic arthritis, bursitis, cellulitis, muscle spasm, nerve compression, DVT, arterial occlusion, herpes zoster, electrolyte abnormality, tumor.... This is not meant to be in all inclusive list EKG interpreted by me (3pts min.). @ -Yes and demonstrates sinus rhythm with rate of 74. AK interval 160. QRS 102. QTc of 408. No acute ST segment elevations or depressions X-rays interpreted by me (1pt min.). @ -Yes and demonstrates possible osteomyelitis CT interpreted by me (1pt min.). @ -None done U/S interpreted by me (1pt. min.). @ -None done What testing was considered but not performed or refused? (CT, X-rays, U/S, labs)? Why? @ -None What meds were considered but not given or refused? Why? @ -None Did you discuss the management of the patient with other professionals (kortney little i.e. , PA, STOCK ANALYST, lab, RT, psych nurse, social media developer, naturalist, teacher, corporate compliance officer, child welfare caseworker)? Give summary @ -Spoke with Sheet for admission Was smoking cessation discussed for >3mins.? @ -No Was critical care preformed (if so, how long)? @ -No Were there social determinants of health that impacted care today? How? (Homelessness, low income, unemployed, alcoholism, drug addiction, transportation, low edu. Level, literacy, decrease access to med. care, half-way, rehab)? @ -No Was there de-escalation of care discussed even if they declined (Discuss DNR or withdrawal of care, Hospice)? DNR status @ -No What co-morbidities impacted this encounter? (DM, HTN, Smoking, COPD, CAD, Cancer, CVA, ARF, Chemo, Hep., AIDS, mental health diagnosis, sleep apnea, morbid obesity)? @ -Osteomyelitis Was patient admitted / discharged? Hospital course, mention meds given and route, prescriptions, significant lab abnormalities, going to OR and other pertinent info. @ -Upon arrival patient seen and evaluated in room 9. Thorough history and physical exam was performed. He is reporting weakness and increased pain in his foot. X-ray was performed which demonstrates possible osteomyelitis. Patient initiated on antibiotics. Will be admitted to [facility] with infectious disease to consult. Patient will likely need bone scan Undiagnosed new problem with uncertain prognosis? @ -No Drug Therapy requiring intensive monitoring for toxicity (Heparin, Nitro, Insulin, Cardizem)? @ -No Were any procedures done? @ -No Diagnosis/symptom? @ -Acute left foot pain, possible osteomyelitis Acute, or Chronic, or Acute on Chronic? @ -Acute on chronic Uncomplicated (without systemic symptoms) or Complicated (systemic symptoms)? @ -Complicated Side effects of treatment? @ -No Exacerbation, Progression, or Severe Exacerbation? @ -No Poses a threat to life or bodily function? How? (Chest pain, USA, VT, pneumonia, PE, COPD, DKA, ARF, appy, cholecystitis, CVA, Diverticulitis, Homicidal, Mendez icidal, threat to staff... and all critical care pts) @ -No - Lab Data Result diagrams: 05/09/24 06:02 05/10/24 03:53 Lab Results 05/05/24 05/05/24 05/05/24 Range/Units 15:25 15:25 15:25 WBC 7.9 (3.8-10.6) k/uL RBC 4.76 (4.30-5.90) m/uL Hgb 15.1 (13.0-17.5) gm/dL Hct 43.6 (39.0-53.0) % MCV 91.5 (80.0-100.0) fL MCH 31.8 (25.0-35.0) pg MCHC 34.8 (31.0-37.0) g/dL RDW 12.7 (11.5-15.5) % Plt Count 108 L (150-450) k/uL MPV 10.9 Neutrophils % 71 % Lymphocytes % 22 % Monocytes % 3 % Eosinophils % 2 % Basophils % 1 % Neutrophils # 5.5 (1.3-7.7) k/uL Lymphocytes # 1.8 (1.0-4.8) k/uL Monocytes # 0.3 (0-1.0) k/uL Eosinophils # 0.1 (0-0.7) k/uL Basophils # 0.1 (0-0.2) k/uL PT 10.4 (10.0-12.5) sec INR 0.9 (<1.2) APTT 23.4 (22.0-30.0) sec Sodium 133 L (137-145) mmol/L Potassium 4.5 (3.5-5.1) mmol/L Chloride 101 (98-107) mmol/L Carbon Dioxide 20 L (22-30) mmol/L Anion Gap 12 mmol/L BUN 15 (9-20) mg/dL Creatinine 0.41 L (0.66-1.25) mg/dL Est GFR (CKD-EPI)AfAm >90 (>60 ml/min/1.73 sqM) Est GFR (CKD-EPI)NonAf >90 (>60 ml/min/1.73 sqM) Glucose 466 H (74-99) mg/dL Lactic Ac Sepsis Rflx Plasma Lactic Acid Jaziel (0.7-2.0) mmol/L Calcium 9.3 (8.4-10.2) mg/dL Total Bilirubin 0.7 (0.2-1.3) mg/dL AST 35 (17-59) U/L ALT 51 H (4-49) U/L Alkaline Phosphatase 90 (38-126) U/L Troponin I (0.000-0.034) ng/mL C-Reactive Protein <0.5 (<1.0) mg/dL Total Protein 7.2 (6.3-8.2) g/dL Albumin 4.3 (3.5-5.0) g/dL Influenza Type A (PCR) (Not Detectd) Influenza Type B (PCR) (Not Detectd) RSV (PCR) (Not Detectd) SARS-CoV-2 (PCR) (Not Detectd) 05/05/24 05/05/24 05/05/24 Range/Units 15:25 15:25 16:10 WBC (3.8-10.6) k/uL RBC (4.30-5.90) m/uL Hgb (13.0-17.5) gm/dL Hct (39.0-53.0) % MCV (80.0-100.0) fL MCH (25.0-35.0) pg MCHC (31.0-37.0) g/dL RDW (11.5-15.5) % Plt Count (150-450) k/uL MPV Neutrophils % % Lymphocytes % % Monocytes % % Eosinophils % % Basophils % % Neutrophils # (1.3-7.7) k/uL Lymphocytes # (1.0-4.8) k/uL Monocytes # (0-1.0) k/uL Eosinophils # (0-0.7) k/uL Basophils # (0-0.2) k/uL PT (10.0-12.5) sec INR (<1.2) APTT (22.0-30.0) sec Sodium (137-145) mmol/L Potassium (3.5-5.1) mmol/L Chloride (98-107) mmol/L Carbon Dioxide (22-30) mmol/L Anion Gap mmol/L BUN (9-20) mg/dL Creatinine (0.66-1.25) mg/dL Est GFR (CKD-EPI)AfAm (>60 ml/min/1.73 sqM) Est GFR (CKD-EPI)NonAf (>60 ml/min/1.73 sqM) Glucose (74-99) mg/dL Lactic Ac Sepsis Rflx Y Plasma Lactic Acid Jaziel 4.0 H* (0.7-2.0) mmol/L Calcium (8.4-10.2) mg/dL Total Bilirubin (0.2-1.3) mg/dL AST (17-59) U/L ALT (4-49) U/L Alkaline Phosphatase (38-126) U/L Troponin I <0.012 (0.000-0.034) ng/mL C-Reactive Protein (<1.0) mg/dL Total Protein (6.3-8.2) g/dL Albumin (3.5-5.0) g/dL Influenza Type A (PCR) (Not Detectd) Influenza Type B (PCR) (Not Detectd) RSV (PCR) (Not Detectd) SARS-CoV-2 (PCR) (Not Detectd) 05/05/24 Range/Units 16:23 WBC (3.8-10.6) k/uL RBC (4.30-5.90) m/uL Hgb (13.0-17.5) gm/dL Hct (39.0-53.0) % MCV (80.0-100.0) fL MCH (25.0-35.0) pg MCHC (31.0-37.0) g/dL RDW (11.5-15.5) % Plt Count (150-450) k/uL MPV Neutrophils % % Lymphocytes % % Monocytes % % Eosinophils % % Basophils % % Neutrophils # (1.3-7.7) k/uL Lymphocytes # (1.0-4.8) k/uL Monocytes # (0-1.0) k/uL Eosinophils # (0-0.7) k/uL Basophils # (0-0.2) k/uL PT (10.0-12.5) sec INR (<1.2) APTT (22.0-30.0) sec Sodium (137-145) mmol/L Potassium (3.5-5.1) mmol/L Chloride (98-107) mmol/L Carbon Dioxide (22-30) mmol/L Anion Gap mmol/L BUN (9-20) mg/dL Creatinine (0.66-1.25) mg/dL Est GFR (CKD-EPI)AfAm (>60 ml/min/1.73 sqM) Est GFR (CKD-EPI)NonAf (>60 ml/min/1.73 sqM) Glucose (74-99) mg/dL Lactic Ac Sepsis Rflx Plasma Lactic Acid Jaziel (0.7-2.0) mmol/L Calcium (8.4-10.2) mg/dL Total Bilirubin (0.2-1.3) mg/dL AST (17-59) U/L ALT (4-49) U/L Alkaline Phosphatase (38-126) U/L Troponin I (0.000-0.034) ng/mL C-Reactive Protein (<1.0) mg/dL Total Protein (6.3-8.2) g/dL Albumin (3.5-5.0) g/dL Influenza Type A (PCR) Not Detected (Not Detectd) Influenza Type B (PCR) Not Detected (Not Detectd) RSV (PCR) Not Detected (Not Detectd) SARS-CoV-2 (PCR) Not Detected (Not Detectd) Disposition Clinical Impression: Diabetic foot ulcer, Osteomyelitis, Lactic acid acidosis Disposition: ADMITTED IP TO THIS HOSP Condition: Stable Is patient prescribed a controlled substance at d/c from ED?: No Time of Disposition: 16:18 Decision to Admit Reason: Admit from EC Decision Date: 05/05/24 Decision Time: 16:18
--- NOTE | 2024-05-05 16:02 | XR ---
EXAMINATION TYPE: XR foot complete 3 views LT DATE OF EXAM: 05/05/2024 Comparison: 10/09/2023 Clinical History: 63-year-old male weakness, lethargy, possible foot infection, pain, assess for oste omyelitis Findings: Plate and screw fixation distal fibula. Diffuse osteopenia. Previous fifth toe amputation at the leve l of the third metatarsal distal shaft. There is overlying soft tissue ulcer. Irregularity of the ost eotomy margin but without shante bony erosion. Overall osteolysis is improved compared to 10/09/2023. T iny retained suture material suggested at the ulcer. Mild degenerative change first MTP joint with bu nion. Moderate-sized plantar spur. Impression: 1. Previous fifth toe amputation. There is a soft tissue ulcer overlying the osteotomy margin at the level of the fifth metatarsal distal shaft. The osteotomy margin is irregular but the osteolysis seen on 10/09/2023 shows an improved appearance. Given this improvement, the exam is equivocal for osteomy elitis radiographically. Consider close radiographic follow-up. If persistent high degree of concern, MRI can be considered. 2. Tiny retained suture or foreign body in the soft tissue ulcer.
[2024-05-05 16:11] LABS: Basophils # (A) 0.1 k/uL (0-0.2); Basophils % (A) 1 %; Eosinophils # (A) 0.1 k/uL (0-0.7); Eosinophils % (A) 2 %; HCT 43.6 % (39.0-53.0); HGB 15.1 gm/dL (13.0-17.5); Lymphocytes # (A) 1.8 k/uL (1.0-4.8); Lymphocytes % (A) 22 %; MCH 31.8 pg (25.0-35.0); MCHC 34.8 g/dL (31.0-37.0); MCV 91.5 fL (80.0-100.0); Mean Platelet Volume 10.9; Monocytes # (A) 0.3 k/uL (0-1.0); Monocytes % (A) 3 %; Neutrophils # (A) 5.5 k/uL (1.3-7.7); Neutrophils % (A) 71 %; Platelet Count 108 k/uL (150-450); RBC 4.76 m/uL (4.30-5.90); RDW 12.7 % (11.5-15.5); WBC 7.9 k/uL (3.8-10.6)
[2024-05-05] MEDS: SODIUM CHLORIDE 0.9% 1,000 ML IV ONE (16:17)
[2024-05-05] MEDS: SODIUM CHLORIDE 0.9% 1,000 ML IV SCH (16:17)
[2024-05-05] MEDS ORDERED: NALOXONE 0.4 MG/ML 1 ML VIAL IV PRN (16:26)
[2024-05-05] MEDS ORDERED: ACETAMINOPHEN TAB 325 MG TAB PO PRN (16:26)
[2024-05-05] MEDS ORDERED: VANCOMYCIN IV PER PHARMACY 1 EACH MISC MISCELLANE PRN (16:30)
[2024-05-05] MEDS: AMPICILLIN-SULBACTAM 3 GM in SODIUM CHLORIDE 0.9% 100 ML IVPB STA (16:47)
[2024-05-05] MEDS: VANCOMYCIN 1,500 MG in SODIUM CHLORIDE 0.9% 500 ML 500 ML IVPB SCH (18:24)
[2024-05-05] MEDS: MORPHINE SULFATE 4 MG/ML SYRINGE IV PRN (19:46)
[2024-05-05] MEDS: HYDROmorphone 1 MG/ML 1 ML SYRINGE IVP STA (22:22)
[2024-05-05 23:32] LABS: Glucose,Whole Blood 417 mg/dL (70-110)
[2024-05-05] MEDS: INSULIN ASPART (NovoLOG) 100 UNIT/ML VIAL SQ SCH (23:42)
[2024-05-06 07:11] LABS: Glucose,Whole Blood 399 mg/dL (70-110)
[2024-05-06 08:38] LABS: Basophils # (A) 0.05 X 10*3/uL (0.00-0.10); Basophils % (A) 0.7 %; Eosinophils # (A) 0.17 X 10*3/uL (0.04-0.35); Eosinophils % (A) 2.4 %; HCT 39.4 % (39.6-50.0); HGB 13.6 g/dL (13.0-17.0); Lymphocytes # (A) 2.68 X 10*3/uL (0.90-5.00); Lymphocytes % (A) 37.3 %; MCH 31.1 pg (27.0-32.0); MCHC 34.5 g/dL (32.0-37.0); MCV 90.2 FL (80.0-97.0); Mean Platelet Volume 12.3 FL (9.5-12.2); Monocytes # (A) 0.37 X 10*3/uL (0.20-1.00); Monocytes % (A) 5.2 %; NRBC Per 100 WBC 0 X 10*3/uL (0.00-0.01); Neutrophils % (A) 54.3 %; Platelet Count 120 X 10*3/uL (140-440); RBC 4.37 X 10*6/uL (4.40-5.60); RDW 12.3 % (11.5-14.5); WBC 7.18 X 10*3/uL (4.50-10.00)
[2024-05-06 08:59] LABS: BUN/Creat Ratio 19.43 Ratio (12.00-20.00); Blood Urea Nitrogen 13.6 mg/dL (9.0-27.0); Calcium 8.6 mg/dL (8.7-10.3); Carbon Dioxide 25.7 mmol/L (21.6-31.8); Chloride 101 mmol/L (96-109); Glucose 401 mg/dL (70-110); Potassium 4.4 mmol/L (3.5-5.5); Sodium 136 mmol/L (135-145)
[2024-05-06] MEDS: INSULIN DETEMIR (LEVEMIR) 100 UNIT/ML SYR SQ SCH (10:58)
[2024-05-06] MEDS: HYDROcodone/APAP 5-325MG 1 EACH TAB PO PRN (11:44)
[2024-05-06 12:05] LABS: Erythrocyte Sedimentation Rate 4 mm/Hr (0-20)
[2024-05-06 12:08] LABS: Glucose,Whole Blood 266 mg/dL (70-110)
--- NOTE | 2024-05-06 12:46 | P.GSCN ---
History of Present Illness History of present illness: 63-year-old gentleman known to me from the past patient came to the emergency room with a history of weakness and complaining of pain in the left foot left lateral aspect with a large infected callus this patient had a left fifth toe amputation in the past Past history patient had a left fifth toe greater in the past Neck examination neck is supple no bruit appreciated chest is clear good in both lung first second sound present Abdomen soft nontender Vascular femorals are 1+ bilateral patient had infected catheter callus lateral aspect of the foot with some tenderness noted stump site post amputation is clean plan is debridement of the wound and deep culture risk and complication discussed Past Medical History Past Medical History: Diabetes Mellitus History of Any Multi-Drug Resistant Organisms: None Reported Past Surgical History: Orthopedic Surgery Additional Past Surgical History / Comment(s): LT KNEE SCOPE, 5th left toe amputation Past Anesthesia/Blood Transfusion Reactions: No Reported Reaction Past Psychological History: No Psychological Hx Reported Smoking Status: Current some day smoker Past Alcohol Use History: None Reported Past Drug Use History: None Reported - Past Family History Sister(s) Family Medical History: Cancer Medications and Allergies Home Medications Medication Instructions Recorded Confirmed Type Insulin Glargine [Lantus Vial] 30 unit SQ DAILY 05/05/24 05/05/24 History Allergies Allergy/AdvReac Type Severity Reaction Status Date / Time No Known Allergies Allergy Verified 05/05/24 14:55 Surgical - Exam Vital Signs Temp Pulse Resp BP Pulse Ox 97.5 F L 92 18 138/86 99 05/05/24 14:52 05/05/24 14:52 05/05/24 14:52 05/05/24 14:52 05/05/24 14:52 Results - Labs 05/06/24 05:50 05/06/24 05:50 Abnormal Lab Results - Last 24 Hours (Table) 05/05/24 05/05/24 05/05/24 Range/Units 15:25 15:25 15:25 RBC (4.40-5.60) X 10*6/uL Hct (39.6-50.0) % Plt Count 108 L (150-450) k/uL MPV (9.5-12.2) FL Sodium 133 L (137-145) mmol/L Carbon Dioxide 20 L (22-30) mmol/L Creatinine 0.41 L (0.66-1.25) mg/dL Glucose 466 H (74-99) mg/dL POC Glucose (mg/dL) (70-110) mg/dL Plasma Lactic Acid Jaziel 4.0 H* (0.7-2.0) mmol/L Calcium (8.7-10.3) mg/dL ALT 51 H (4-49) U/L 05/05/24 05/05/24 05/05/24 Range/Units 17:29 20:20 23:31 RBC (4.40-5.60) X 10*6/uL Hct (39.6-50.0) % Plt Count (150-450) k/uL MPV (9.5-12.2) FL Sodium (137-145) mmol/L Carbon Dioxide (22-30) mmol/L Creatinine (0.66-1.25) mg/dL Glucose (74-99) mg/dL POC Glucose (mg/dL) 417 H (70-110) mg/dL Plasma Lactic Acid Jaziel 2.7 H* 2.4 H* (0.7-2.0) mmol/L Calcium (8.7-10.3) mg/dL ALT (4-49) U/L 05/06/24 05/06/24 05/06/24 Range/Units 05:50 05:50 07:09 RBC 4.37 L (4.40-5.60) X 10*6/uL Hct 39.4 L (39.6-50.0) % Plt Count 120 L (150-450) k/uL MPV 12.3 H (9.5-12.2) FL Sodium (137-145) mmol/L Carbon Dioxide (22-30) mmol/L Creatinine (0.66-1.25) mg/dL Glucose 401 H (74-99) mg/dL POC Glucose (mg/dL) 399 H (70-110) mg/dL Plasma Lactic Acid Jaziel (0.7-2.0) mmol/L Calcium 8.6 L (8.7-10.3) mg/dL ALT (4-49) U/L 05/06/24 Range/Units 12:06 RBC (4.40-5.60) X 10*6/uL Hct (39.6-50.0) % Plt Count (150-450) k/uL MPV (9.5-12.2) FL Sodium (137-145) mmol/L Carbon Dioxide (22-30) mmol/L Creatinine (0.66-1.25) mg/dL Glucose (74-99) mg/dL POC Glucose (mg/dL) 266 H (70-110) mg/dL Plasma Lactic Acid Jaziel (0.7-2.0) mmol/L Calcium (8.7-10.3) mg/dL ALT (4-49) U/L Diabetes panel 05/05/24 05/06/24 Range/Units 15:25 05:50 Sodium 133 L 136 (137-145) mmol/L Potassium 4.5 4.4 (3.5-5.1) mmol/L Chloride 101 101 (98-107) mmol/L Carbon Dioxide 20 L 25.7 (22-30) mmol/L BUN 15 13.6 (9-20) mg/dL Creatinine 0.41 L 0.7 (0.66-1.25) mg/dL Glucose 466 H 401 H (74-99) mg/dL Calcium 9.3 8.6 L (8.4-10.2) mg/dL AST 35 (17-59) U/L ALT 51 H (4-49) U/L Alkaline Phosphatase 90 (38-126) U/L Total Protein 7.2 (6.3-8.2) g/dL Albumin 4.3 (3.5-5.0) g/dL Calcium panel 05/05/24 05/06/24 Range/Units 15:25 05:50 Calcium 9.3 8.6 L (8.4-10.2) mg/dL Albumin 4.3 (3.5-5.0) g/dL Pituitary panel 05/05/24 05/06/24 Range/Units 15:25 05:50 Sodium 133 L 136 (137-145) mmol/L Potassium 4.5 4.4 (3.5-5.1) mmol/L Chloride 101 101 (98-107) mmol/L Carbon Dioxide 20 L 25.7 (22-30) mmol/L BUN 15 13.6 (9-20) mg/dL Creatinine 0.41 L 0.7 (0.66-1.25) mg/dL Glucose 466 H 401 H (74-99) mg/dL Calcium 9.3 8.6 L (8.4-10.2) mg/dL Adrenal panel 05/05/24 05/06/24 Range/Units 15:25 05:50 Sodium 133 L 136 (137-145) mmol/L Potassium 4.5 4.4 (3.5-5.1) mmol/L Chloride 101 101 (98-107) mmol/L Carbon Dioxide 20 L 25.7 (22-30) mmol/L BUN 15 13.6 (9-20) mg/dL Creatinine 0.41 L 0.7 (0.66-1.25) mg/dL Glucose 466 H 401 H (74-99) mg/dL Calcium 9.3 8.6 L (8.4-10.2) mg/dL Total Bilirubin 0.7 (0.2-1.3) mg/dL AST 35 (17-59) U/L ALT 51 H (4-49) U/L Alkaline Phosphatase 90 (38-126) U/L Total Protein 7.2 (6.3-8.2) g/dL Albumin 4.3 (3.5-5.0) g/dL
[2024-05-06] MEDS: NICOTINE 14MG/24HR PATCH TRANSDERM SCH (13:07)
[2024-05-06] MEDS: HEPARIN SODIUM,PORCINE 5,000 UNIT/ML 1 ML VIAL SQ SCH (13:07)
[2024-05-06] MEDS: AMPICILLIN-SULBACTAM 3 GM in SODIUM CHLORIDE 0.9% 100 ML IVPB SCH (13:07)
[2024-05-06] MEDS: SODIUM CHLORIDE 0.9% 1,000 ML IV SCH (13:22)
[2024-05-06 16:48] LABS: Glucose,Whole Blood 280 mg/dL (70-110)
--- NOTE | 2024-05-06 17:51 | P.CONS ---
History of Present Illness - Reason for Consult Consult date: 05/05/24 Left foot pain possible osteomyelitis Requesting physician: Telma Murillo - Chief Complaint Weakness and left foot pain x days - History of Present Illness Patient is a 63-year-old male with a past medical history significant diabetes mellitus history of diabetic foot infection with amputation of the left fifth toe continue smoke presenting to the hospital for generalized weakness that apparently has been getting worse for the last week or so patient was com plaining of more pain to the left foot describing the pain to be sharp moderate intensity worse with walking with some associated swelling no foul-smelling drainage patient has been evaluated by the ER physician on presentation to the hospital patient has been afebrile and no fever have been recorded subsequently patient was not tachycardic hypotensive or hypoxic patient did have a white count of 7.9 creatinine 0.41 ALT elevated chest although isms are normal influenza RSV COVID testing negative patient did have a foot x-ray previous fifth toe potation soft tissue ulcer overlying the osteotomy margin and a question of osteomyelitis patient was started on vancomycin has been admitted to the hospital infectious disease was consulted for further management of antibiotic therapy Review of Systems Positive point and negatives has been mentioned in the HPI, complete review of systems was performed and all other systems are negative Past Medical History Past Medical History: Diabetes Mellitus History of Any Multi-Drug Resistant Organisms: None Reported Past Surgical History: Orthopedic Surgery Additional Past Surgical History / Comment(s): LT KNEE SCOPE, 5th left toe amputation Past Anesthesia/Blood Transfusion Reactions: No Reported Reaction Past Psychological History: No Psychological Hx Reported Smoking Status: Current some day smoker Past Alcohol Use History: None Reported Past Drug Use History: None Reported - Past Family History Sister(s) Family Medical History: Cancer Medications and Allergies Home Medications Medication Instructions Recorded Confirmed Type Insulin Glargine [Lantus Vial] 30 unit SQ DAILY 05/05/24 05/05/24 History Allergies Allergy/AdvReac Type Severity Reaction Status Date / Time No Known Allergies Allergy Verified 05/05/24 14:55 Physical Exam Vitals: Vital Signs Temp Pulse Resp BP Pulse Ox 05/05/24 16:50 70 16 124/71 99 05/05/24 14:52 97.5 F L 92 18 138/86 99 Intake and Output 05/05/24 05/05/24 05/05/24 06:59 14:59 22:59 Other: Weight 90.718 kg GENERAL DESCRIPTION: Elderly male lying in bed, no distress. No tachypnea or accessory muscle of respiration use. HEENT: Shows Pallor , no scleral icterus. Oral mucous membrane is dry. No pharyngeal erythema or thrush NECK: Trachea central, no thyromegaly. LUNGS: Unlabored breathing. Clear to auscultation anteriorly. No wheeze or crackle. HEART: S1, S2, regular rate and rhythm. No loud murmur ABDOMEN: Soft, no tenderness , guarding or rigidity, no organomegaly EXTREMITIES: Patient did have overall poor hygiene did have a necrotic wound on the plantar aspect of the left foot at the base of the fifth toe amputation site but no drainage SKIN: No rash, no masses palpable. NEUROLOGICAL: The patient is awake, alert, oriented x3, mood and affect normal. Results CBC & Chem 7: 05/06/24 05:50 05/06/24 05:50 Labs: Abnormal Lab Results - Last 24 Hours (Table) 05/05/24 05/05/24 05/05/24 Range/Units 15:25 15:25 15:25 Plt Count 108 L (150-450) k/uL Sodium 133 L (137-145) mmol/L Carbon Dioxide 20 L (22-30) mmol/L Creatinine 0.41 L (0.66-1.25) mg/dL Glucose 466 H (74-99) mg/dL Plasma Lactic Acid Jaziel 4.0 H* (0.7-2.0) mmol/L ALT 51 H (4-49) U/L Assessment and Plan (1) Diabetic foot ulcer Current Visit: Yes Status: Acute Code(s): E11.621 - TYPE 2 DIABETES MELLITUS WITH FOOT ULCER; L97.509 - NON-PRESSURE CHRONIC ULCER OTH PRT UNSP FOOT W UNSP SEVERITY SNOMED Code(s): 411415614 (2) Osteomyelitis Current Visit: Yes Status: Acute Code(s): M86.9 - OSTEOMYELITIS, UNSPECIFIED SNOMED Code(s): 29120879 (3) Diabetic foot infection Current Visit: No Status: Acute Code(s): E11.628 - TYPE 2 DIABETES MELLITUS WITH OTHER SKIN COMPLICATIONS; L08.9 - LOCAL INFECTION OF THE SKIN AND SUBCUTANEOUS TISSUE, UNSP SNOMED Code(s): 094443727 Plan: 1patient presented to the hospital with weakness increasing pain to the left foot this patient who did have a previous left fifth toe amputation for diabetic foot infection now with evidence of necrotic wound at the base of the fifth toe amputation site and abnormal x-ray suspicious for possible osteomyelitis. 2we will have vascular surgery evaluation for debridement of the wound and deep culture. 3check inflammatory markers. 4continue with the vancomycin pharmacy to dose while waiting for the workup to be completed while watching his kidney function closely. We will follow on clinical condition and cultures to further adjust medication if needed Thank you for this consultation we will follow the patient along with you Dictation was produced using [employer] dictation software. please excuse any grammatical, word or spelling errors. Time with Patient: Greater than 30
--- NOTE | 2024-05-06 17:55 | P.PN ---
Subjective Progress Note Date: 05/06/24 Principal diagnosis: Reason for follow-up is left foot diabetic foot ulcer Patient is a 63-year-old male with a past medical history significant diabetes mellitus history of diabetic foot infection with amputation of the left fifth toe continue smoke presenting to the hospital for generalized weakness increasing pain to the left foot in this patient with a previous left fifth toe amputation now with a necrotic wound on the plantar aspect and abnormal x-ray. On today's evaluation that is 05/06/2024, patient has been afebrile, patient is breathing comfortably and is currently on room air, patient denies having any significant cough no chest pain shortness of breath, patient denies nausea vomiting or diarrhea and no abdominal pain still complaining of pain to the left foot some improvement with the pain medication no drainage. Patient did have a white count of 7.18 creatinine 0.7 Objective - Vital Signs Vital signs: Vital Signs Temp 98 F 05/06/24 12:06 Pulse 68 05/06/24 12:06 Resp 17 05/06/24 12:06 BP 123/76 05/06/24 12:06 Pulse Ox 98 05/06/24 12:06 FiO2 Intake & Output 05/05/24 05/06/24 05/06/24 18:59 06:59 18:59 Intake Total 1990 Output Total 700 650 Balance 1290 -650 Weight 90.718 kg 90.718 kg Intake: Intake, IV Titration 910 Amount Sodium Chloride 0.9% 1, 910 000 ml @ 75 mls/hr IV . [id number] [facility] Rx#:[id number] Oral 1080 Output: Urine 700 650 Other: Voiding Method Toilet Urinal - Exam GENERAL DESCRIPTION: An elderly male lying in bed in no distress RESPIRATORY SYSTEM: Unlabored breathing , decreased breath sounds at bases HEART: S1 S2 regular rate and rhythm , ABDOMEN: Soft , no tenderness EXTREMITIES: Left foot plantar wound at the base of the fifth toe amputation site with necrotic base - Labs CBC & Chem 7: 05/06/24 05:50 05/06/24 05:50 Labs: Abnormal Lab Results - Last 24 Hours (Table) 05/05/24 05/05/24 05/05/24 Range/Units 17:29 20:20 23:31 RBC (4.40-5.60) X 10*6/uL Hct (39.6-50.0) % Plt Count (140-440) X 10*3/uL MPV (9.5-12.2) FL Glucose (70-110) mg/dL POC Glucose (mg/dL) 417 H (70-110) mg/dL Plasma Lactic Acid Jaziel 2.7 H* 2.4 H* (0.7-2.0) mmol/L Calcium (8.7-10.3) mg/dL 05/06/24 05/06/24 05/06/24 Range/Units 05:50 05:50 07:09 RBC 4.37 L (4.40-5.60) X 10*6/uL Hct 39.4 L (39.6-50.0) % Plt Count 120 L (140-440) X 10*3/uL MPV 12.3 H (9.5-12.2) FL Glucose 401 H (70-110) mg/dL POC Glucose (mg/dL) 399 H (70-110) mg/dL Plasma Lactic Acid Jaziel (0.7-2.0) mmol/L Calcium 8.6 L (8.7-10.3) mg/dL 05/06/24 05/06/24 Range/Units 12:06 16:47 RBC (4.40-5.60) X 10*6/uL Hct (39.6-50.0) % Plt Count (140-440) X 10*3/uL MPV (9.5-12.2) FL Glucose (70-110) mg/dL POC Glucose (mg/dL) 266 H 280 H (70-110) mg/dL Plasma Lactic Acid Jaziel (0.7-2.0) mmol/L Calcium (8.7-10.3) mg/dL Assessment and Plan (1) Diabetic foot ulcer Current Visit: Yes Status: Acute Code(s): E11.621 - TYPE 2 DIABETES MELLITUS WITH FOOT ULCER; L97.509 - NON-PRESSURE CHRONIC ULCER OTH PRT UNSP FOOT W UNSP SEVERITY SNOMED Code(s): 558629869 (2) Osteomyelitis Current Visit: Yes Status: Acute Code(s): M86.9 - OSTEOMYELITIS, UNSPECIFIED SNOMED Code(s): 72131086 (3) Diabetic foot infection Current Visit: No Status: Acute Code(s): E11.628 - TYPE 2 DIABETES MELLITUS WITH OTHER SKIN COMPLICATIONS; L08.9 - LOCAL INFECTION OF THE SKIN AND SUBCUTANEOUS TISSUE, UNSP SNOMED Code(s): 623986798 Plan: 1patient presented to the hospital with weakness increasing pain to the left f oot this patient who did have a previous left fifth toe amputation for diabetic foot infection now with evidence of necrotic wound at the base of the fifth toe amputation site and abnormal x-ray suspicious for possible osteomyelitis. 2patient has been evaluated by vascular surgery and planning for debridement of the wound and deep culture. 3patient tocontinue with the vancomycin pharmacy to dose while waiting for the workup to be completed Dictation was produced using [employer] dictation software. please excuse any grammatical, word or spelling errors. Time with Patient: Less than 30
[2024-05-06 20:11] LABS: Glucose,Whole Blood 231 mg/dL (70-110)
[2024-05-06] MEDS: HYDROmorphone 0.5 MG/0.5 ML SYRINGE IVP PRN (20:17)
--- NOTE | 2024-05-06 22:21 | HP ---
HISTORY AND PHYSICAL CHIEF COMPLAINT: Left foot diabetic ulceration and possible osteomyelitis. HISTORY OF PRESENT ILLNESS: This is a 63-year-old gentleman with a past medical history of diabetes mellitus type 2 and 5th toe amputation on the left side, was complaining of severe pain. The patient had debridement last year and the patient is being evaluated for osteomyelitis again, lactic acid elevated. The patient is started on IV antibiotics. Multiple consultants are following the patient closely. There is no history of any fever, rigors, or chills at this time. PAST MEDICAL HISTORY: Diabetes mellitus, diabetic ulcer, previous sepsis, osteomyelitis. Rest of the history and rest of the chart is also reviewed. HOME MEDICATIONS: Lantus 30 units subcu daily. ALLERGIES: None. FAMILY HISTORY: History of cancer in the family. SOCIAL HISTORY: Smoking continued. REVIEW OF SYSTEMS: Fourteen-point review is negative except as mentioned earlier. PHYSICAL EXAMINATION: VITAL SIGNS: Pulse is 73, blood pressure 129/73, respirations 17. HEENT: Conjunctivae normal. NECK: No JVD. CARDIOVASCULAR: S1, S2. RESPIRATIONS: Breath sounds diminished at the bases. A few scattered rhonchi and crackles. ABDOMEN: Soft, nontender. LEGS: Status post left 5th toe amputation and some tenderness and erythema also present. LABORATORY DATA: WBC 7.0, hemoglobin 13.2. ASSESSMENT: 1. Left foot diabetic ulcer with failure of outpatient treatment, rule out osteomyelitis. 2. History of previous sepsis and osteomyelitis. 3. Diabetes mellitus, type 2 uncontrolled. 4. Hyponatremia. 5. Mild thrombocytopenia. 6. Mild hypocalcemia. RECOMMENDATIONS AND DISCUSSION: This is a 63-year-old gentleman, who presented with multiple complex medical issues, we will monitor the patient closely. Initiate broad-spectrum IV antibiotics. Pain management. I would also recommend a bone scan. Vascular and Infectious Disease evaluation. Resume the home medications. DVT prophylaxis. Prognosis guarded because of multiple complex medical conditions. Further recommendations to follow. The patient is started on Levemir 20 units subcu daily. We will continue to monitor and adjust those medications also. MMODL / IJN: [id number] /
[2024-05-07] MEDS: VANCOMYCIN TROUGH DUE 1 EACH MISC MISCELLANE ONE (06:16)
[2024-05-07 07:39] LABS: Glucose,Whole Blood 283 mg/dL (70-110)
[2024-05-07 07:56] LABS: African American GFR (CKD) >90 (>60 ml/min/1.73 sqM); Anion Gap 4 mmol/L; Blood Urea Nitrogen 12 mg/dL (9-20); Calcium 8.2 mg/dL (8.4-10.2); Carbon Dioxide 23 mmol/L (22-30); Chloride 107 mmol/L (98-107); Glucose 248 mg/dL (74-99); Non-African American GFR(CKD) >90 (>60 ml/min/1.73 sqM); Potassium 3.8 mmol/L (3.5-5.1); Sodium 134 mmol/L (137-145)
--- NOTE | 2024-05-07 10:21 | CDI ---
Documentation Clarification Form Date: 05/07/2024 09:39:41 AM From: Emma Lemon RN, CCDS Phone: [phone] Admit Date: 05/05/2024 04:27:00 PM Patient Name: Johan Orellana Visit Number: [id number] Discharge Date: ATTENTION: The Clinical Documentation Specialists (CDI) and [facility] Coding Staff appreciate your assistance in clarifying documentation. Please respond to the clarification below the line at the bottom and electronically sign. The CDI & [facility] Coding staff will review the response and follow-up if needed. Please note: Queries are made part of the Legal Health Record. If you have any questions, please contact the author of this message via ITS. Dr. Suman Nguyễn Diabetes mellitus type 2 uncontrolled is documented in the H/P. Additional specificity regarding the diabetes diagnosis is requested. History/Risk Factors: Diabetes Mellitus, Current some day smoker Clinical Indicators: 63-year-old male history significant diabetes mellitus history of diabetic foot infection with amputation of the left fifth toe continue smoke presenting to the hospital for generalized weakness pain. He has diabetes mellitus type 2, documented as uncontrolled. 05/05 Glucose 466 05/05 POC Glucose 417, 05/06 Glucose 401; POC Glucose 399 Treatment: Levemir 20 units SQ BID Monitor glucose and adjust Insulin Please further clarify diabetes, if known: [ ] Diabetes Type 2 with Hyperglycemia [ ] Other, please specify [ ] Unable to Determine (Template Last Revised: January 2021) Diabetes Type 2 with Hyperglycemia MTDD
[2024-05-07 10:30] LABS: HCT 37.9 % (39.6-50.0); HGB 13.2 g/dL (13.0-17.0); MCH 31.4 pg (27.0-32.0); MCHC 34.8 g/dL (32.0-37.0); Mean Platelet Volume 13.6 FL (9.5-12.2); NRBC Per 100 WBC 0 X 10*3/uL (0.00-0.01); Platelet Count 91 X 10*3/uL (140-440); RBC 4.21 X 10*6/uL (4.40-5.60); RDW 12.4 % (11.5-14.5); WBC 5.69 X 10*3/uL (4.50-10.00)
[2024-05-07 10:31] LABS: Basophils # (A) 0.04 X 10*3/uL (0.00-0.10); Basophils % (A) 0.7 %; Eosinophils # (A) 0.13 X 10*3/uL (0.04-0.35); Eosinophils % (A) 2.3 %; Lymphocytes # (A) 2.04 X 10*3/uL (0.90-5.00); Lymphocytes % (A) 35.9 %; Monocytes # (A) 0.29 X 10*3/uL (0.20-1.00); Monocytes % (A) 5.1 %; Neutrophils # (A) 3.18 X 10*3/uL (1.80-7.70); Neutrophils % (A) 55.8 %
[2024-05-07 12:02] LABS: Glucose,Whole Blood 314 mg/dL (70-110)
[2024-05-07] MEDS: MULTIVITAMINS, THERA 1 EACH TAB PO SCH (12:19)
--- NOTE | 2024-05-07 13:18 | PN ---
PROGRESS NOTE DATE OF SERVICE: 05/07/2024 SUBJECTIVE: This is a 63-year-old gentleman with left foot diabetic ulceration, is on antibiotic. The patient is complaining of severe pain. No chest pain. No palpitation. OBJECTIVE: VITAL SIGNS: Pulse is 65, blood pressure 108/62, respirations 14. CHEST: Clear to auscultation. CARDIOVASCULAR: S1, S2. ABDOMEN: Soft. EXTREMITIES: Left foot diabetic ulcer with some discharge present. LABORATORY DATA: Glucose 314. ASSESSMENT: 1. Left foot diabetic ulcer with failure of outpatient treatment, rule out osteomyelitis. 2. History of previous sepsis and osteomyelitis. 3. Diabetes mellitus, type 2, uncontrolled. 4. Hyponatremia. 5. Mild thrombocytopenia. 6. Multiple complex medical issues. RECOMMENDATIONS AND DISCUSSION: I recommend to continue current medications, continue symptomatic treatment. Otherwise, at this time, I would increase the dose of Lantus and we will continue to monitor. Antibiotics. Pain management. Guarded prognosis. Further recommendations to follow. MMODL / IJN: [id number] /
--- NOTE | 2024-05-07 13:44 | NM ---
EXAMINATION TYPE: NM bone 3 phase DATE OF EXAM: 05/07/2024 COMPARISON: 10/11/2023 CLINICAL INDICATION: Male, 63 years old with history of left foot osteo; Triple phase bone scintigraphy was performed following the injection of 22.2 mCi Tc 99m MDP. Immedia te images and 5.75 hours post injection images acquired. FINDINGS: There is increased flow of the left foot. There is increased soft tissue uptake overlying the metatarsal bones. Delayed uptake demonstrates abnormal uptake involving the lateral margin of the right foot\calcaneus which likely is related to prior trauma or post arthritic. Delayed uptake also demonstrates increased uptake overlying the fifth metatarsal suggestive of osteom yelitis. IMPRESSION: Findings suggest cellulitis with osteomyelitis of the fifth metatarsal.
[2024-05-07 15:18] LABS: Glucose,Whole Blood 159 mg/dL (70-110)
[2024-05-07] MEDS: ONDANSETRON 4 MG/2 ML VIAL IVP STA (15:25)
[2024-05-07] MEDS: IV FLUID CONTINUATION 1,000 ML IV ONE (15:27)
[2024-05-07] MEDS: LACTATED RINGERS 1,000 ML BAG IV STA (15:27)
[2024-05-07] MEDS ORDERED: MIDAZOLAM 2 MG/2 ML VIAL ONE (15:58)
[2024-05-07] MEDS: VANCOMYCIN 1,500 MG in SODIUM CHLORIDE 0.9% 500 ML 500 ML IVPB SCH (15:58)
[2024-05-07] MEDS ORDERED: PROPOFOL 10 MG/ML 20 ML VIAL IV ONE (15:58)
[2024-05-07] MEDS ORDERED: fentaNYL (PF) 50 MCG/ML 2 ML AMP ONE (15:58)
[2024-05-07] MEDS ORDERED: KETAMINE HCL IN 0.9 % NACL 50 MG/5 ML SYRINGE ONE (15:58)
[2024-05-07] MEDS: LIDOCAINE 1% INJ 10MG/ML (20 ML MDV) SQ ONE (16:12)
[2024-05-07 17:12] LABS: Glucose,Whole Blood 151 mg/dL (70-110)
[2024-05-07 20:24] LABS: Glucose,Whole Blood 271 mg/dL (70-110)
[2024-05-07] MEDS: INSULIN DETEMIR (LEVEMIR) 100 UNIT/ML SYR SQ SCH (20:33)
--- NOTE | 2024-05-07 22:18 | OP ---
OPERATIVE REPORT DATE OF SERVICE : PREOPERATIVE DIAGNOSIS: Infected callus, left foot lateral aspect. POSTOPERATIVE DIAGNOSIS: Infected callus, left foot lateral aspect. Post debridement measurement is 4 x 4 cm. DESCRIPTION OF PROCEDURE: The patient was brought to the operating room. Left foot was prepped and drapes applied in sterile manner. IV sedation and 1% lidocaine infiltrated. Using knife, we excised the callus down to subcutaneous tissue and fat. Active callus was excised which was sent for deep culture. No active bleeding was noted. Wound was irrigated with hydrogen peroxide and saline. Aquacel silver was applied to the wound. Dressing applied. The patient tolerated the procedure well. Transferred to the recovery room in satisfactory condition. MMODL / IJN: [id number] /
[2024-05-08] MEDS: IBUPROFEN 400 MG TAB PO PRN (05:23)
[2024-05-08 07:11] LABS: Glucose,Whole Blood 137 mg/dL (70-110)
[2024-05-08 08:48] LABS: Basophils % (A) 1 %; Eosinophils # (A) 0.2 k/uL (0-0.7); Eosinophils % (A) 3 %; HCT 40.1 % (39.0-53.0); HGB 13.5 gm/dL (13.0-17.5); Lymphocytes # (A) 1.8 k/uL (1.0-4.8); Lymphocytes % (A) 31 %; MCH 31.1 pg (25.0-35.0); MCHC 33.7 g/dL (31.0-37.0); MCV 92.2 fL (80.0-100.0); Mean Platelet Volume 11.8; Monocytes # (A) 0.3 k/uL (0-1.0); Monocytes % (A) 6 %; Neutrophils # (A) 3.4 k/uL (1.3-7.7); Neutrophils % (A) 59 %; RBC 4.35 m/uL (4.30-5.90); RDW 12.5 % (11.5-15.5); WBC 5.8 k/uL (3.8-10.6)
[2024-05-08 08:53] LABS: African American GFR (CKD) >90 (>60 ml/min/1.73 sqM); Anion Gap 2 mmol/L; Blood Urea Nitrogen 11 mg/dL (9-20); Calcium 8.4 mg/dL (8.4-10.2); Carbon Dioxide 26 mmol/L (22-30); Chloride 107 mmol/L (98-107); Glucose 136 mg/dL (74-99); Non-African American GFR(CKD) >90 (>60 ml/min/1.73 sqM); Potassium 3.9 mmol/L (3.5-5.1); Sodium 135 mmol/L (137-145)
[2024-05-08 09:26] LABS: Platelet Count 84 k/uL (150-450)
[2024-05-08 09:27] LABS: RBC Morphology Normal
[2024-05-08 12:04] LABS: Glucose,Whole Blood 282 mg/dL (70-110)
[2024-05-08 12:15] VITALS: BMI 27.8
--- NOTE | 2024-05-08 15:33 | P.PN ---
Subjective Progress Note Date: 05/07/24 Principal diagnosis: Reason for follow-up is left foot diabetic foot ulcer Patient is a 63-year-old male with a past medical history significant diabetes mellitus history of diabetic foot infection with amputation of the left fifth toe continue smoke presenting to the hospital for generalized weakness increasing pain to the left foot in this patient with a previous left fifth toe amputation now with a necrotic wound on the plantar aspect and abnormal x-ray. On today's evaluation that is 05/07/2024, Patient is afebrile this morning and denies any chills, patient mention breathing comfortably and is currently on room air, patient denies any chest pain occasional cough patient denies any abdominal pain no diarrhea no nausea no vomiting, denies worsening pain to the left foot currently waiting for debridement of the left foot by vascular surgery. Patient white count is 5.69, creatinine 0.38 Objective - Vital Signs Vital signs: Vital Signs Temp 97.8 F 05/07/24 16:25 Pulse 62 05/07/24 16:25 Resp 14 05/07/24 16:25 BP 99/60 05/07/24 16:25 Pulse Ox 100 05/07/24 16:25 FiO2 Intake & Output 05/06/24 05/07/24 05/07/24 18:59 06:59 18:59 Intake Total 400 Output Total 900 505 Balance -900 -105 Intake: IV 400 Output: Urine 900 500 Estimated Blood Loss 5 Other: Voiding Method Toilet Urinal # Voids 1 - Exam GENERAL DESCRIPTION: An elderly male lying in bed in no distress RESPIRATORY SYSTEM: Unlabored breathing , decreased breath sounds at bases HEART: S1 S2 regular rate and rhythm , ABDOMEN: Soft , no tenderness EXTREMITIES: Left foot plantar wound at the base of the fifth toe amputation site with necrotic base - Labs CBC & Chem 7: 05/08/24 07:42 05/08/24 07:42 Labs: Abnormal Lab Results - Last 24 Hours (Table) 05/06/24 05/06/24 05/07/24 Range/Units 16:47 20:09 06:09 RBC (4.40-5.60) X 10*6/uL Hct (39.6-50.0) % Plt Count (140-440) X 10*3/uL MPV (9.5-12.2) FL Sodium (137-145) mmol/L Creatinine (0.66-1.25) mg/dL Glucose (74-99) mg/dL POC Glucose (mg/dL) 280 H 231 H (70-110) mg/dL Hemoglobin A1c 11.7 H (<=6.0) % Calcium (8.4-10.2) mg/dL 05/07/24 05/07/24 05/07/24 Range/Units 06:09 06:09 07:38 RBC 4.21 L (4.40-5.60) X 10*6/uL Hct 37.9 L (39.6-50.0) % Plt Count 91 L (140-440) X 10*3/uL MPV 13.6 H (9.5-12.2) FL Sodium 134 L (137-145) mmol/L Creatinine 0.38 L (0.66-1.25) mg/dL Glucose 248 H (74-99) mg/dL POC Glucose (mg/dL) 283 H (70-110) mg/dL Hemoglobin A1c (<=6.0) % Calcium 8.2 L (8.4-10.2) mg/dL 05/07/24 05/07/24 Range/Units 12:01 15:16 RBC (4.40-5.60) X 10*6/uL Hct (39.6-50.0) % Plt Count (140-440) X 10*3/uL MPV (9.5-12.2) FL Sodium (137-145) mmol/L Creatinine (0.66-1.25) mg/dL Glucose (74-99) mg/dL POC Glucose (mg/dL) 314 H 159 H (70-110) mg/dL Hemoglobin A1c (<=6.0) % Calcium (8.4-10.2) mg/dL Assessment and Plan (1) Diabetic foot ulcer Current Visit: Yes Status: Acute Code(s): E11.621 - TYPE 2 DIABETES MELLITUS WITH FOOT ULCER; L97.509 - NON-PRESSURE CHRONIC ULCER OTH PRT UNSP FOOT W UNSP SEVERITY SNOMED Code(s): 679183141 (2) Osteomyelitis Current Visit: Yes Status: Acute Code(s): M86.9 - OSTEOMYELITIS, UNSPECIFIED SNOMED Code(s): 55917851 (3) Diabetic foot infection Current Visit: No Status: Acute Code(s): E11.628 - TYPE 2 DIABETES MELLITUS WITH OTHER SKIN COMPLICATIONS; L08.9 - LOCAL INFECTION OF THE SKIN AND SUBCUTANEOUS TISSUE, UNSP SNOMED Code(s): 287229328 Plan: 1patient presented to the hospital with weakness increasing pain to the left foot this patient who did have a previous left fifth toe amputation for diabetic foot infection now with evidence of necrotic wound at the base of the fifth toe amputation site and abnormal x-ray suspicious for possible osteomyelitis. 2patient has been evaluated by vascular surgery and planning for debridement of the wound and deep culture this afternoon. 3patient tocontinue with the vancomycin pharmacy to dose while waiting for the culture to be finalized to determine discharge antibiotics Dictation was produced using [employer] dictation software. please excuse any grammatical, word or spelling errors. Time with Patient: Less than 30
--- NOTE | 2024-05-08 15:34 | P.PN ---
Subjective Progress Note Date: 05/08/24 Principal diagnosis: Reason for follow-up is left foot diabetic foot ulcer Patient is a 63-year-old male with a past medical history significant diabetes mellitus history of diabetic foot infection with amputation of the left fifth toe continue smoke presenting to the hospital for generalized weakness increasing pain to the left foot in this patient with a previous left fifth toe amputation now with a necrotic wound on the plantar aspect and abnormal x- ray.Patient is status post debridement of the infected callus left foot lateral aspect and culture which are currently pending patient also have a both scan completed yesterday suspicious for osteomyelitis left foot at the site of his ulcer On today's evaluation 05/08/2024,the patient denies any fever or any chills, patient is breathing comfortably on room air, the patient denies chest pain shortness of breath and no significant cough, patient denies abdominal pain, no nausea vomiting or diarrhea. Patient denies any worsening pain to the left foot and wants to go home. Patient white count is 5.8 creatinine 0.42 Objective - Vital Signs Vital signs: Vital Signs Temp 97.9 F 05/08/24 07:11 Pulse 63 05/08/24 08:45 Resp 18 05/08/24 08:45 BP 143/87 05/08/24 07:11 Pulse Ox 99 05/08/24 07:11 FiO2 Intake & Output 05/07/24 05/08/24 05/08/24 18:59 06:59 18:59 Intake Total 400 Output Total 805 1000 650 Balance -405 -1000 -650 Weight 90.718 kg Intake: IV 400 Output: Urine 800 1000 650 Estimated Blood Loss 5 Other: Voiding Method Toilet Toilet Urinal Urinal - Exam GENERAL DESCRIPTION: An elderly male lying in bed in no distress RESPIRATORY SYSTEM: Unlabored breathing , decreased breath sounds at bases HEART: S1 S2 regular rate and rhythm , ABDOMEN: Soft , no tenderness EXTREMITIES: Left foot plantar wound currently dressed - Labs CBC & Chem 7: 05/08/24 07:42 05/08/24 07:42 Labs: Abnormal Lab Results - Last 24 Hours (Table) 05/07/24 05/07/24 05/07/24 Range/Units 15:16 17:11 20:22 Plt Count (150-450) k/uL Sodium (137-145) mmol/L Creatinine (0.66-1.25) mg/dL Glucose (74-99) mg/dL POC Glucose (mg/dL) 159 H 151 H 271 H (70-110) mg/dL 05/08/24 05/08/24 05/08/24 Range/Units 07:10 07:42 07:42 Plt Count 84 L (150-450) k/uL Sodium 135 L (137-145) mmol/L Creatinine 0.42 L (0.66-1.25) mg/dL Glucose 136 H (74-99) mg/dL POC Glucose (mg/dL) 137 H (70-110) mg/dL 05/08/24 Range/Units 12:03 Plt Count (150-450) k/uL Sodium (137-145) mmol/L Creatinine (0.66-1.25) mg/dL Glucose (74-99) mg/dL POC Glucose (mg/dL) 282 H (70-110) mg/dL Assessment and Plan (1) Diabetic foot ulcer Current Visit: Yes Status: Acute Code(s): E11.621 - TYPE 2 DIABETES MELLITUS WITH FOOT ULCER; L97.509 - NON-PRESSURE CHRONIC ULCER OTH PRT UNSP FOOT W UNSP SEVERITY SNOMED Code(s): 695822267 (2) Osteomyelitis Current Visit: Yes Status: Acute Code(s): M86.9 - OSTEOMYELITIS, UNSPECIFIED SNOMED Code(s): 62983977 (3) Diabetic foot infection Current Visit: No Status: Acute Code(s): E11.628 - TYPE 2 DIABETES MELLITUS WITH OTHER SKIN COMPLICATIONS; L08.9 - LOCAL INFECTION OF THE SKIN AND SUBCUTANEOUS TISSUE, UNSP SNOMED Code(s): 357048372 Plan: 1patient presented to the hospital with weakness increasing pain to the left foot this patient who did have a previous left fifth toe amputation for diabetic foot infection now with evidence of necrotic wound at the base of the fifth toe amputation site and abnormal x-ray suspicious for possible osteomyelitis. 2patient has been evaluated by vascular surgery and patient is status post debridement of the infected callus and deep culture which are currently pending but once again has been suspicious for osteomyelitis at that location 3patient tocontinue with the vancomycin pharmacy to dose while waiting for the culture to be finalized to determine discharge antibiotics will likely need a PICC line patient has been advised to stay in the hospital till cultures are finalized Dictation was produced using [employer] software. please excuse any grammatical, word or spelling errors. Time with Patient: Less than 30
--- NOTE | 2024-05-08 16:37 | P.PN ---
Progress Note - Text 63-year-old gentleman patient had a infected callus left foot plantar to her lateral aspect patient excision of the callus patient IV antibiotic under care of infectious disease I will be out of town from till Monday evening and Dr. smith is covering me she is stable can be discharged with local wound care follow-up with the wound clinic
[2024-05-08 17:03] LABS: Glucose,Whole Blood 178 mg/dL (70-110)
[2024-05-08 20:03] LABS: Glucose,Whole Blood 256 mg/dL (70-110)
--- NOTE | 2024-05-09 05:33 | P.PN ---
Subjective Progress Note Date: 05/08/24 This is a pleasant 63-year-old male who was recently admitted with left foot diabetic ulcer with concerns of increased pain and possible infection. Patient is maintained on IV antibiotics with infectious disease following and currently awaiting deep tissue cultures. Patient was evaluated by vascular surgery Dr. Mckeon and is status post debridement of the left lateral region. Patient expressing desire to go home although will likely need IV antibiotic therapy and will need to be arranged once cultures have finalized. Patient is afebrile denies pain of the left foot. No reported chest pain or shortness of breath. Patient denies nausea or vomiting and has been tolerating diet. Continue monit oring Accu-Cheks and adjust insulins accordingly. Review of systems: Constitutional: No reports of fatigue, fever, or chills Cardiovascular: No reports of chest pain or palpitations Respiratory: No reports of shortness of breath or cough GI: No reports of nausea, no reports of vomiting, no diarrhea : No reports of dysuria or retention Neurovascular: reports of generalized weakness, reporting improvement in left foot pain All medications have been reviewed PHYSICAL EXAMINATION: GENERAL: The patient is alert and oriented x4, Well developed, well nourished. Elderly appearing HEENT: Pupils are round and equally reacting to light. EOMI. no scleral icterus. No conjunctival pallor. Normocephalic, atraumatic. No pharyngeal erythema. No thyromegaly. CARDIOVASCULAR: S1 and S2 muffled PULMONARY: diminished breath sounds bilaterally with no wheezing or rhonchi noted. ABDOMEN: soft. Nontender on exam. obese. non-distended, normoactive bowel sounds. No palpable organomegaly. MUSCULOSKELETAL: No joint swelling or deformity. EXTREMITIES: No cyanosis, clubbing, or pedal edema. Left foot dressing is dry and intact NEUROLOGICAL: Gross neurological examination did not reveal any focal deficits. Diffuse weakness SKIN: No rashes. Assessment: Left foot diabetic ulcer with failure of outpatient treatment, osteomyelitis History of previous sepsis and osteomyelitis Diabetes mellitus, type II, uncontrolled with hyperglycemia Hyponatremia, improved Mild thrombocytopenia GI prophylaxis DVT prophylaxis Full code Plan: Recommend to continue with current medications and management with infectious disease and vascular surgery following. Patient is status post debridement of the left foot lateral region with deep tissue cultures obtained and currently pending. Patient is maintained on IV antibiotics with infectious disease following and awaiting discharge planning until cultures have finalized as patient will likely need IV antibiotic therapy on discharge. Plan for a PICC line once cultures have finalized and discussing further with case management regarding coverage Due to the holiday on May 09, 2024, there will be no availability for PICC line or case management to arrange discharge planning. Patient would like to go home and currently awaiting cultures. Will follow-up on repeat labs Adjust insulins accordingly and continue monitoring Accu-Cheks before meals and at bedtime Due to multiple complex medical issues, prognosis is guarded The impression and plan of care has been dictated by Ondina Boo, nurse practitioner as directed. Dr. Gopi MD I have performed a history and examination and MDM of this patient, discussed the same with the dictator, and agree with the dictator's assessment and plan as written ,documented as a scribe. Based on total visit time, I have performed more than 50% of the visit. Any additional findings or plans will be noted. Objective - Vital Signs Vital signs: Vital Signs Temp 98.1 F 05/09/24 01:45 Pulse 78 05/09/24 01:45 Resp 16 05/09/24 01:45 BP 113/62 05/09/24 01:45 Pulse Ox 98 05/09/24 01:45 FiO2 Intake & Output 05/08/24 05/08/24 05/09/24 06:59 18:59 06:59 Output Total 1000 1400 1300 Balance -1000 -1400 -1300 Weight 90.718 kg Output: Urine 1000 1400 1300 Other: Voiding Method Toilet Toilet Toilet Urinal Urinal Urinal # Voids 1 - Labs CBC & Chem 7: 05/08/24 07:42 05/08/24 07:42 Labs: Abnormal Lab Results - Last 24 Hours (Table) 05/08/24 05/08/24 05/08/24 Range/Units 07:10 07:42 07:42 Plt Count 84 L (150-450) k/uL Sodium 135 L (137-145) mmol/L Creatinine 0.42 L (0.66-1.25) mg/dL Glucose 136 H (74-99) mg/dL POC Glucose (mg/dL) 137 H (70-110) mg/dL 05/08/24 05/08/24 05/08/24 Range/Units 12:03 17:01 20:01 Plt Count (150-450) k/uL Sodium (137-145) mmol/L Creatinine (0.66-1.25) mg/dL Glucose (74-99) mg/dL POC Glucose (mg/dL) 282 H 178 H 256 H (70-110) mg/dL Microbiology - Last 24 Hours (Table) 05/07/24 16:20 Gram Stain - Preliminary Other - Other
[2024-05-09] MEDS: VANCOMYCIN TROUGH DUE 1 EACH MISC MISCELLANE ONE (06:35)
[2024-05-09 06:58] LABS: Glucose,Whole Blood 242 mg/dL (70-110)
[2024-05-09 07:57] LABS: African American GFR (CKD) >90 (>60 ml/min/1.73 sqM); Anion Gap 4 mmol/L; Blood Urea Nitrogen 11 mg/dL (9-20); Calcium 8.3 mg/dL (8.4-10.2); Carbon Dioxide 26 mmol/L (22-30); Chloride 107 mmol/L (98-107); Glucose 203 mg/dL (74-99); Magnesium 1.7 mg/dL (1.6-2.3); Non-African American GFR(CKD) >90 (>60 ml/min/1.73 sqM); Potassium 3.8 mmol/L (3.5-5.1); Sodium 137 mmol/L (137-145)
[2024-05-09 10:53] LABS: Basophils # (A) 0.03 X 10*3/uL (0.00-0.10); Basophils % (A) 0.7 %; Eosinophils # (A) 0.13 X 10*3/uL (0.04-0.35); Eosinophils % (A) 2.8 %; HGB 12.7 g/dL (13.0-17.0); Immature Grans, Automated 0 %; Lymphocytes # (A) 1.45 X 10*3/uL (0.90-5.00); Lymphocytes % (A) 31.7 %; MCH 31.1 pg (27.0-32.0); MCHC 34.3 g/dL (32.0-37.0); MCV 90.7 FL (80.0-97.0); Monocytes # (A) 0.34 X 10*3/uL (0.20-1.00); Monocytes % (A) 7.4 %; NRBC Per 100 WBC 0 X 10*3/uL (0.00-0.01); Neutrophils # (A) 2.63 X 10*3/uL (1.80-7.70); Neutrophils % (A) 57.4 %; Platelet Count 91 X 10*3/uL (140-440); RBC 4.08 X 10*6/uL (4.40-5.60); RDW 12.1 % (11.5-14.5); WBC 4.58 X 10*3/uL (4.50-10.00)
[2024-05-09 12:09] LABS: Glucose,Whole Blood 151 mg/dL (70-110)
[2024-05-09] MEDS: ALPRAZolam 0.25 MG TAB PO PRN (14:35)
[2024-05-09 17:04] LABS: Glucose,Whole Blood 146 mg/dL (70-110)
[2024-05-09 20:21] LABS: Glucose,Whole Blood 263 mg/dL (70-110)
[2024-05-10 04:52] LABS: African American GFR (CKD) >90 (>60 ml/min/1.73 sqM); Non-African American GFR(CKD) >90 (>60 ml/min/1.73 sqM)
--- NOTE | 2024-05-10 05:31 | P.PN ---
Subjective Progress Note Date: 05/09/24 This is a pleasant 63-year-old male who was recently admitted with left foot diabetic ulcer with concerns of increased pain and possible infection. Patient is maintained on IV antibiotics with infectious disease following and currently awaiting deep tissue cultures. Patient was evaluated by vascular surgery Dr. Mckeon and is status post debridement of the left lateral region. Patient expressing desire to go home although will likely need IV antibiotic therapy and will need to be arranged once cultures have finalized. Patient is afebrile denies pain of the left foot. No reported chest pain or shortness of breath. Patient denies nausea or vomiting and has been tolerating diet. Continue monit oring Accu-Cheks and adjust insulins accordingly. 05/09/2024 Patient is seen and evaluated today status post debridement with infectious disease and vascular surgery following. Currently awaiting finalized cultures to determine discharge antibiotics. Patient will receive a PICC line and continue on IV antibiotics in the outpatient setting. Case management consulted to verify coverage and arrange for discharge antibiotics. Patient is afebrile with no reports of chest pain or shortness of breath. Patient is extremely anxious to go home although continuing to await for cultures. Culture should be finalized within the next 24 to 48 hours. Patient denies any nausea or vomiting and has been tolerating diet. Review of systems: Constitutional: No reports of fatigue, fever, or chills Cardiovascular: No reports of chest pain or palpitations Respiratory: No reports of shortness of breath or cough GI: No reports of nausea, no reports of vomiting, no diarrhea : No reports of dysuria or retention Neurovascular: reports of generalized weakness, reporting improvement in left foot pain All medications have been reviewed PHYSICAL EXAMINATION: GENERAL: The patient is alert and oriented x4, anxious, well developed, well nourished. Elderly appearing HEENT: Pupils are round and equally reacting to light. EOMI. no scleral icterus. No conjunctival pallor. Normocephalic, atraumatic. No pharyngeal erythema. No thyromegaly. CARDIOVASCULAR: S1 and S2 muffled PULMONARY: diminished breath sounds bilaterally with no wheezing or rhonchi noted. ABDOMEN: soft. Nontender on exam. obese. non-distended, normoactive bowel sounds. No palpable organomegaly. MUSCULOSKELETAL: No joint swelling or deformity. EXTREMITIES: No cyanosis, clubbing, or pedal edema. Left foot dressing is dry a nd intact NEUROLOGICAL: Gross neurological examination did not reveal any focal deficits. Diffuse weakness SKIN: No rashes. Assessment: Left foot diabetic ulcer with failure of outpatient treatment, osteomyelitis status post debridement with preliminary culture showing E. coli History of previous sepsis and osteomyelitis Diabetes mellitus, type II, uncontrolled with hyperglycemia Hyponatremia, improved Mild thrombocytopenia GI prophylaxis DVT prophylaxis Full code Plan: Recommend to continue with current medications and management with infectious disease and vascular surgery following. Patient is status post debridement of the left foot lateral region with deep tissue cultures obtained and currently pending. Preliminary showing E. coli. Patient is maintained on IV antibiotics with infectious disease following and awaiting discharge planning until cultures have finalized as patient will likely need IV antibiotic therapy on discharge. PICC line is ordered Due to the holiday on May 09, 2024, there will be no availability for PICC line or case management to arrange discharge planning. Patient would like to go home and currently awaiting cultures. Adjust insulins accordingly and continue monitoring Accu-Cheks before meals and at bedtime Due to multiple complex medical issues, prognosis is guarded Possible discharge planning in 24 to 48 hours once patient has received a PICC line and antibiotics have been arranged for discharge The impression and plan of care has been dictated by Ondina Boo, nurse practitioner as directed. Dr. Gopi MD I have performed a history and examination and MDM of this patient, discussed the same with the dictator, and agree with the dictator's assessment and plan as written ,documented as a scribe. Based on total visit time, I have performed more than 50% of the visit. Any additional findings or plans will be noted. Objective - Vital Signs Vital signs: Vital Signs Temp 98 F 05/09/24 12:09 Pulse 65 05/09/24 12:09 Resp 17 05/09/24 12:09 BP 146/89 05/09/24 12:09 Pulse Ox 97 05/09/24 12:09 FiO2 Intake & Output 05/08/24 05/09/24 05/09/24 18:59 06:59 18:59 Output Total 1400 1300 500 Balance -1400 -1300 -500 Weight 90.718 kg Output: Urine 1400 1300 500 Other: Voiding Method Toilet Toilet Toilet Urinal Urinal Urinal # Voids 1 - Labs CBC & Chem 7: 05/09/24 06:02 05/10/24 03:53 Labs: Abnormal Lab Results - Last 24 Hours (Table) 05/08/24 05/08/24 05/09/24 Range/Units 17:01 20:01 06:02 RBC (4.40-5.60) X 10*6/uL Hgb (13.0-17.0) g/dL Hct (39.6-50.0) % Plt Count (140-440) X 10*3/uL MPV (9.5-12.2) FL Creatinine 0.40 L (0.66-1.25) mg/dL Glucose 203 H (74-99) mg/dL POC Glucose (mg/dL) 178 H 256 H (70-110) mg/dL Calcium 8.3 L (8.4-10.2) mg/dL 05/09/24 05/09/24 05/09/24 Range/Units 06:02 06:57 12:08 RBC 4.08 L (4.40-5.60) X 10*6/uL Hgb 12.7 L (13.0-17.0) g/dL Hct 37.0 L (39.6-50.0) % Plt Count 91 L (140-440) X 10*3/uL MPV 13.0 H (9.5-12.2) FL Creatinine (0.66-1.25) mg/dL Glucose (74-99) mg/dL POC Glucose (mg/dL) 242 H 151 H (70-110) mg/dL Calcium (8.4-10.2) mg/dL Microbiology - Last 24 Hours (Table) 05/07/24 16:20 Gram Stain - Preliminary Other - Other
[2024-05-10 07:21] LABS: Glucose,Whole Blood 114 mg/dL (70-110)
--- NOTE | 2024-05-10 10:00 | P.PN ---
Subjective Progress Note Date: 05/09/24 Principal diagnosis: Reason for follow-up is left foot diabetic foot ulcer Patient is a 63-year-old male with a past medical history significant diabetes mellitus history of diabetic foot infection with amputation of the left fifth toe continue smoke presenting to the hospital for generalized weakness increasing pain to the left foot in this patient with a previous left fifth toe amputation now with a necrotic wound on the plantar aspect and abnormal x- ray.Patient is status post debridement of the infected callus left foot lateral aspect and culture which are currently pending patient also have a both scan completed yesterday suspicious for osteomyelitis left foot at the site of his ulcer On today's evaluation that is 05/09/2024,the patient remains to be afebrile, patient is on room air not requiring supplemental oxygen and denies any shortness of breath no chest pain or cough.Patient denies having any nausea or vomiting, no abdominal pain and no diarrhea complaining of some pain to the left foot and want more pain medication symptoms insisting on going home. Patient white count is 4.5. Creatinine 0.40 Objective - Vital Signs Vital signs: Vital Signs Temp 98 F 05/09/24 12:09 Pulse 65 05/09/24 12:09 Resp 17 05/09/24 12:09 BP 146/89 05/09/24 12:09 Pulse Ox 97 05/09/24 12:09 FiO2 Intake & Output 05/08/24 05/09/24 05/09/24 18:59 06:59 18:59 Output Total 1400 1300 500 Balance -1400 -1300 -500 Weight 90.718 kg Output: Urine 1400 1300 500 Other: Voiding Method Toilet Toilet Toilet Urinal Urinal Urinal # Voids 1 - Exam GENERAL DESCRIPTION: An elderly male lying in bed in no distress RESPIRATORY SYSTEM: Unlabored breathing , decreased breath sounds at bases HEART: S1 S2 regular rate and rhythm , ABDOMEN: Soft , no tenderness EXTREMITIES: Left foot plantar wound currently dressed - Labs CBC & Chem 7: 05/09/24 06:02 05/10/24 03:53 Labs: Abnormal Lab Results - Last 24 Hours (Table) 05/08/24 05/08/24 05/09/24 Range/Units 17:01 20:01 06:02 RBC (4.40-5.60) X 10*6/uL Hgb (13.0-17.0) g/dL Hct (39.6-50.0) % Plt Count (140-440) X 10*3/uL MPV (9.5-12.2) FL Creatinine 0.40 L (0.66-1.25) mg/dL Glucose 203 H (74-99) mg/dL POC Glucose (mg/dL) 178 H 256 H (70-110) mg/dL Calcium 8.3 L (8.4-10.2) mg/dL 05/09/24 05/09/24 05/09/24 Range/Units 06:02 06:57 12:08 RBC 4.08 L (4.40-5.60) X 10*6/uL Hgb 12.7 L (13.0-17.0) g/dL Hct 37.0 L (39.6-50.0) % Plt Count 91 L (140-440) X 10*3/uL MPV 13.0 H (9.5-12.2) FL Creatinine (0.66-1.25) mg/dL Glucose (74-99) mg/dL POC Glucose (mg/dL) 242 H 151 H (70-110) mg/dL Calcium (8.4-10.2) mg/dL Microbiology - Last 24 Hours (Table) 05/07/24 16:20 Gram Stain - Preliminary Other - Other Tissue Culture - Preliminary Escherichia coli Assessment and Plan (1) Diabetic foot ulcer Current Visit: Yes Status: Acute Code(s): E11.621 - TYPE 2 DIABETES MELLITUS WITH FOOT ULCER; L97.509 - NON-PRESSURE CHRONIC ULCER OTH PRT UNSP FOOT W UNSP SEVERITY SNOMED Code(s): 959296324 (2) Osteomyelitis Current Visit: Yes Status: Acute Code(s): M86.9 - OSTEOMYELITIS, UNSPECIFIED SNOMED Code(s): 92199768 (3) Diabetic foot infection Current Visit: No Status: Acute Code(s): E11.628 - TYPE 2 DIABETES MELLITUS WITH OTHER SKIN COMPLICATIONS; L08.9 - LOCAL INFECTION OF THE SKIN AND SUBCUTANEOUS TISSUE, UNSP SNOMED Code(s): 451694867 Plan: 1patient presented to the hospital with weakness increasing pain to the left foot this patient who did have a previous left fifth toe amputation for diabetic foot infection now with evidence of necrotic wound at the base of the fifth toe amputation site and abnormal x-ray suspicious for possible osteomyelitis. 2patient has been evaluated by vascular surgery and patient is status post debridement of the infected callus and deep culture which are currently pending but once again has been suspicious for osteomyelitis at that location 3patient will get a PICC line continue with the vancomycin and Unasyn while waiting for the culture to finalize to determine discharge antibiotics Dictation was produced using [employer] dictation software. please excuse any grammatical, word or spelling errors. Time with Patient: Less than 30
[2024-05-10 12:29] LABS: Glucose,Whole Blood 251 mg/dL (70-110)
[2024-05-10 12:56] VITALS: BP 133/70; PULSE 67; RESP 18; TEMP 98
--- NOTE | 2024-05-10 12:58 | P.PN ---
Subjective Progress Note Date: 05/10/24 Principal diagnosis: Reason for follow-up is left foot diabetic foot ulcer Patient is a 63-year-old male with a past medical history significant diabetes mellitus history of diabetic foot infection with amputation of the left fifth toe continue smoke presenting to the hospital for generalized weakness increasing pain to the left foot in this patient with a previous left fifth toe amputation now with a necrotic wound on the plantar aspect and abnormal x- ray.Patient is status post debridement of the infected callus left foot lateral aspect and culture which are currently pending patient also have a both scan completed yesterday suspicious for osteomyelitis left foot at the site of his ulcer On today's evaluation that is 05/10/2024, the patient continues to be afebrile, the patient is on room air and breathing comfortably, the Pt denies having any chest pain or cough, the patient denies having any abdominal pain no vomiting or any diarrhea denies any worsening pain to the left foot however has been complaining about inadequate pain medication and asking for something more. Patient creatinine 0.48 culture finalized with E. coli that is a sensitive pathogen Objective - Vital Signs Vital signs: Vital Signs Temp 97.9 F 05/10/24 07:02 Pulse 61 05/10/24 07:02 Resp 20 05/10/24 07:02 BP 121/70 05/10/24 07:02 Pulse Ox 98 05/10/24 07:02 FiO2 Intake & Output 05/09/24 05/10/24 05/10/24 18:59 06:59 18:59 Output Total 850 770 Balance -850 -770 Output: Urine 850 770 Other: Voiding Method Toilet Toilet Urinal Urinal - Exam GENERAL DESCRIPTION: An elderly male lying in bed in no distress RESPIRATORY SYSTEM: Unlabored breathing , decreased breath sounds at bases HEART: S1 S2 regular rate and rhythm , ABDOMEN: Soft , no tenderness EXTREMITIES: Left foot plantar wound currently dressed - Labs CBC & Chem 7: 05/09/24 06:02 05/10/24 03:53 Labs: Abnormal Lab Results - Last 24 Hours (Table) 05/09/24 05/09/24 05/09/24 Range/Units 06:02 12:08 17:03 RBC 4.08 L (4.40-5.60) X 10*6/uL Hgb 12.7 L (13.0-17.0) g/dL Hct 37.0 L (39.6-50.0) % Plt Count 91 L (140-440) X 10*3/uL MPV 13.0 H (9.5-12.2) FL Creatinine (0.66-1.25) mg/dL POC Glucose (mg/dL) 151 H 146 H (70-110) mg/dL 05/09/24 05/10/24 05/10/24 Range/Units 20:05 03:53 07:05 RBC (4.40-5.60) X 10*6/uL Hgb (13.0-17.0) g/dL Hct (39.6-50.0) % Plt Count (140-440) X 10*3/uL MPV (9.5-12.2) FL Creatinine 0.48 L (0.66-1.25) mg/dL POC Glucose (mg/dL) 263 H 114 H (70-110) mg/dL Microbiology - Last 24 Hours (Table) 05/07/24 16:20 Gram Stain - Preliminary Other - Other Tissue Culture - Preliminary Escherichia coli Assessment and Plan (1) Diabetic foot ulcer Current Visit: Yes Status: Acute Code(s): E11.621 - TYPE 2 DIABETES MELLITUS WITH FOOT ULCER; L97.509 - NON-PRESSURE CHRONIC ULCER OTH PRT UNSP FOOT W UNSP SEVERITY SNOMED Code(s): 188752990 (2) Osteomyelitis Current Visit: Yes Status: Acute Code(s): M86.9 - OSTEOMYELITIS, UNSPECIFIED SNOMED Code(s): 14140611 (3) Diabetic foot infection Current Visit: No Status: Acute Code(s): E11.628 - TYPE 2 DIABETES MELLITUS WITH OTHER SKIN COMPLICATIONS; L08.9 - LOCAL INFECTION OF THE SKIN AND SUBCUTANEOUS TISSUE, UNSP SNOMED Code(s): 053779738 Plan: 1patient presented to the hospital with weakness increasing pain to the left foot this patient who did have a previous left fifth toe amputation for diabetic foot infection now with evidence of necrotic wound at the base of the fifth toe amputation site and abnormal x-ray suspicious for possible osteomyelitis. 2patient has been evaluated by vascular surgery and patient is status post debridement of the infected callus and deep culture which are currently pending but once again has been suspicious for osteomyelitis at that location 3patient local culture finalized with an E. coli that is a sensitive pathogen patient did get a PICC line we will switch antibiotic to Rocephin 2 g daily along with oral Flagyl prescription sent to the pharmacy weekly blood draw and close outpatient follow-up Dictation was produced using [employer] dictation software. please excuse any grammatical, word or spelling errors. Time with Patient: Less than 30
[2024-05-12] MEDS ORDERED: VANCOMYCIN TROUGH DUE 1 EACH MISC MISCELLANE ONE (06:00)
== END 2024-05-10 15:15 | disposition home health service (06) | DRG 571 ==
LOC: EC 14:49 → 5NMEDONC 16:26 → OBSVTOIN 16:27 → 5NMEDONC 23:36
PROVIDERS: ADMIT Internal Medicine; ATTEND Internal Medicine
PROC: 0JBR0ZZ Excision of Left Foot Subcutaneous Tissue and Fascia, Open Approach (ICD-10-PCS; principal; 2024-05-07 08:45)
PROC: 02HV33Z Insertion of Infusion Device into Superior Vena Cava, Percutaneous Approach (ICD-10-PCS; 2024-05-10)
PROC: B548ZZA Ultrasonography of Superior Vena Cava, Guidance (ICD-10-PCS; 2024-05-10)
PROC: B5181ZA Fluoroscopy of Superior Vena Cava using Low Osmolar Contrast, Guidance (ICD-10-PCS; 2024-05-10)
DX: L08.89 Other specified local infections of the skin and subcutaneous tissue (principal); E87.1 Hypo-osmolality and hyponatremia; M86.8X7 Other osteomyelitis, ankle and foot; G89.18 Other acute postprocedural pain; E11.621 Type 2 diabetes mellitus with foot ulcer; E11.628 Type 2 diabetes mellitus with other skin complications; E11.69 Type 2 diabetes mellitus with other specified complication; L84 Corns and callosities; D69.6 Thrombocytopenia, unspecified; E83.51 Hypocalcemia; I10 Essential (primary) hypertension; B96.20 Unspecified Escherichia coli [E. coli] as the cause of diseases classified elsewhere; E11.65 Type 2 diabetes mellitus with hyperglycemia; I25.10 Atherosclerotic heart disease of native coronary artery without angina pectoris; L97.529 Non-pressure chronic ulcer of other part of left foot with unspecified severity; Z79.4 Long term (current) use of insulin; Z89.422 Acquired absence of other left toe(s)
CPT/HCPCS: 36415; 36573; 78315; 80048; 80053; 80202; 82565; 83036; 83605; 83735; 84484; 85025; 85610; 85652; 85730; 86140; 87070; 87075; 87077; 87186; 87205; 87636; 93005; 96365; 96366; 96367; 96375; 96376; 99285

== ENCOUNTER 2024-09-03 13:47 | Emergency (ER) | payer MEDICARE ==
[2024-09-03 13:56] VITALS: RESP 18; TEMP 98.5
--- NOTE | 2024-09-03 14:41 | ED ---
Lower Extremity Injury HPI - General Chief Complaint: Extremity Injury, Lower Stated Complaint: Left foot pain Time Seen by Provider: 09/03/24 14:03 Source: patient, RN notes reviewed Mode of arrival: ambulatory Limitations: no limitations - History of Present Illness Initial Comments: 63-year-old male presents emergency department complaint of left foot pain. Patient states that he had a prior amputation by Dr. Mckeon. Patient states that he has been having increasing pain does admit that he has not had any of his diabetic medications or pain meds in 3 weeks. He states he cannot remember who was prescribed he is cannot remember his primary care physician. He denies any drainage. Denies any fevers or chills. - Related Data Previous Rx's Medication Instructions Recorded Insulin Glargine [Lantus Vial] 70 unit SQ DAILY #10 ml 09/03/24 Allergies Allergy/AdvReac Type Severity Reaction Status Date / Time No Known Allergies Allergy Verified 09/03/24 13:56 Review of Systems ROS Statement: Those systems with pertinent positive or pertinent negative responses have been documented in the HPI. ROS Other: All systems not noted in ROS Statement are negative. Past Medical History Past Medical History: Diabetes Mellitus Additional Past Medical History / Comment(s): neuropathy, History of Any Multi-Drug Resistant Organisms: None Reported Past Surgical History: Orthopedic Surgery Additional Past Surgical History / Comment(s): LT KNEE SCOPE, 5th left toe amputation Past Anesthesia/Blood Transfusion Reactions: No Reported Reaction Past Psychological History: No Psychological Hx Reported Smoking Status: Current every day smoker Past Alcohol Use History: None Reported Past Drug Use History: None Reported - Past Family History Sister(s) Family Medical History: Cancer General Exam Limitations: no limitations General appearance: alert, in no apparent distress Head exam: Present: atraumatic, normocephalic, normal inspection Neck exam: Present: normal inspection. Absent: tenderness, meningismus, lymphadenopathy Respiratory exam: Present: normal lung sounds bilaterally. Absent: respiratory distress, wheezes, rales, rhonchi, stridor Cardiovascular Exam: Present: regular rate, normal rhythm, normal heart sounds. Absent: systolic murmur, diastolic murmur, rubs, gallop, clicks Extremities exam: Present: other (Left foot there is any additional fifth digit there is callus formation without surrounding erythema pulses are equal lower extremities.) Neurological exam: Present: alert Course Vital Signs 09/03/24 09/03/24 13:52 15:58 Temperature 98.5 F Pulse Rate 101 H 82 Respiratory 18 18 Rate Blood Pressure 134/95 133/79 O2 Sat by Pulse 97 97 Oximetry Medical Decision Making - Medical Decision Making Was pt. sent in by a medical professional or institution (ROBERTO Winchester, RETAIL COVER[employer] MERCHANDISER, urgent care, hospital, or fpc...) When possible be specific @ -No Did you speak to anyone other than the patient for history (EMS, parent, family, police, friend...)? What history was obtained from this source @ -No Did you review nursing and triage notes (agree or disagree)? Why? @ -I reviewed and agree with nursing and triage notes Were old charts reviewed (outside hosp., previous admission, EMS record, old EKG, old radiological studies, urgent care reports/EKG's, fpc records)? Report findings @ -No old charts were reviewed Differential Diagnosis (chest pain, altered mental status, abdominal pain women, abdominal pain men, vaginal bleeding, weakness, fever, dyspnea, syncope, headache, dizziness, GI bleed, back pain, seizure, CVA, palpatations, mental health, musculoskeletal)? @ -Osteomyelitis, chronic foot pain, diabetic, hyperglycemia, medication refill EKG interpreted by me (3pts min.). @ -None none X-rays interpreted by me (1pt min.). @ -X-ray left foot shows no evidence of osteomyelitis, postsurgical changes CT interpreted by me (1pt min.). @ -None done U/S interpreted by me (1pt. min.). @ -None done What testing was considered but not performed or refused? (CT, X-rays, U/S, labs)? Why? @ -None What meds were considered but not given or refused? Why? @ -None Did you discuss the management of the patient with other professionals (professionals i.e. ROBERTO Winchester, RET[employer] C[employer] MERCHANDISER, lab, RT, psych nurse, licensed clinical social worker, sifter and miller, teacher, legal compliance officer, rehabilitation caseworker)? Give summary @ -No Was smoking cessation discussed for >3mins.? @ -No Was critical care preformed (if so, how long)? @ -No Were there social determinants of health that impacted care today? How? (Homelessness, low income, unemployed, alcoholism, drug addiction, transportation, low edu. Level, literacy, decrease access to med. care, fci, rehab)? @ -No Was there de-escalation of care discussed even if they declined (Discuss DNR or withdrawal of care, Hospice)? DNR status @ -No What co-morbidities impacted this encounter? (DM, HTN, Smoking, COPD, CAD, Cancer, CVA, ARF, Chemo, Hep., AIDS, mental health diagnosis, sleep apnea, morbid obesity)? @ -Diabetes Was patient admitted / discharged? Hospital course, mention meds given and route, prescriptions, significant lab abnormalities, going to OR and other pertinent info. @ -Discharge patient presented for hyperglycemia, medication refill and foot pain. Patient was given insulin did have primary care physician appointment made and was given a refill of his Lantus that he uses. Undiagnosed new problem with uncertain prognosis? @ -No Drug Therapy requiring intensive monitoring for toxicity (Heparin, Nitro, Insulin, Cardizem)? @ -No Were any procedures done? @ -No Diagnosis/symptom? @ -Foot pain, hyperglycemia, diabetes, medication refill Acute, or Chronic, or Acute on Chronic? @ -Chronic, acute Uncomplicated (without systemic symptoms) or Complicated (systemic symptoms)? @ -Uncomplicated Side effects of treatment? @ -No Exacerbation, Progression, or Severe Exacerbation? @ -No Poses a threat to life or bodily function? How? (Chest pain, USA, AR, pneumonia, PE, COPD, DKA, ARF, appy, cholecystitis, CVA, Diverticulitis, Homicidal, Suicidal, threat to staff... and all critical care pts) @ -No - Lab Data Result diagrams: 09/03/24 14:55 09/03/24 14:55 Lab Results 09/03/24 09/03/24 09/03/24 Range/Units 14:55 14:55 16:08 WBC 8.1 (3.8-10.6) k/uL RBC 5.18 (4.30-5.90) m/uL Hgb 16.3 (13.0-17.5) gm/dL Hct 47.6 (39.0-53.0) % MCV 91.8 (80.0-100.0) fL MCH 31.4 (25.0-35.0) pg MCHC 34.2 (31.0-37.0) g/dL RDW 12.5 (11.5-15.5) % Plt Count 163 (150-450) k/uL MPV 8.8 Neutrophils % 73 % Lymphocytes % 20 % Monocytes % 4 % Eosinophils % 1 % Basophils % 0 % Neutrophils # 5.9 (1.3-7.7) k/uL Lymphocytes # 1.6 (1.0-4.8) k/uL Monocytes # 0.3 (0-1.0) k/uL Eosinophils # 0.1 (0-0.7) k/uL Basophils # 0.0 (0-0.2) k/uL Sodium 137 (137-145) mmol/L Potassium 4.6 (3.5-5.1) mmol/L Chloride 104 (98-107) mmol/L Carbon Dioxide 24 (22-30) mmol/L Anion Gap 9 mmol/L BUN 21 H (9-20) mg/dL Creatinine 0.54 L (0.66-1.25) mg/dL Est GFR (CKD-EPI)AfAm >90 (>60 ml/min/1.73 sqM) Est GFR (CKD-EPI)NonAf >90 (>60 ml/min/1.73 sqM) Glucose 333 H (74-99) mg/dL POC Glucose (mg/dL) 307 H (70-110) mg/dL POC Glu Drier And Pulverizer Tender TAYLOR Filemon Chin Calcium 9.6 (8.4-10.2) mg/dL Total Bilirubin 0.7 (0.2-1.3) mg/dL AST 44 (17-59) U/L ALT 57 H (4-49) U/L Alkaline Phosphatase 82 (38-126) U/L Total Protein 8.0 (6.3-8.2) g/dL Albumin 4.6 (3.5-5.0) g/dL Disposition Clinical Impression: Chronic pain in left foot, Diabetes mellitus with hyperglycemia, Medication refill Disposition: HOME SELF-CARE Condition: Stable Additional Instructions: Please return to the Emergency Department if symptoms worsen or any other concerns. Prescriptions: Insulin Glargine [Lantus Vial] 70 unit SQ DAILY #10 ml Is patient prescribed a controlled substance at d/c from ED?: No Referrals: Leti Leija DO [REFERRING] - 10/14/24 9:30 am (Bring insurance cards and ID card. You will have new patient paperwork to complete. ) Time of Disposition: 15:58
[2024-09-03] MEDS: KETOROLAC 15 MG/ML 1 ML VIAL IVP STA (14:59)
[2024-09-03 15:06] LABS: Basophils % (A) 0 %; Eosinophils # (A) 0.1 k/uL (0-0.7); Eosinophils % (A) 1 %; HCT 47.6 % (39.0-53.0); HGB 16.3 gm/dL (13.0-17.5); Lymphocytes # (A) 1.6 k/uL (1.0-4.8); Lymphocytes % (A) 20 %; MCH 31.4 pg (25.0-35.0); MCHC 34.2 g/dL (31.0-37.0); MCV 91.8 fL (80.0-100.0); Mean Platelet Volume 8.8; Monocytes # (A) 0.3 k/uL (0-1.0); Monocytes % (A) 4 %; Neutrophils # (A) 5.9 k/uL (1.3-7.7); Neutrophils % (A) 73 %; Platelet Count 163 k/uL (150-450); RBC 5.18 m/uL (4.30-5.90); RDW 12.5 % (11.5-15.5); WBC 8.1 k/uL (3.8-10.6)
[2024-09-03 15:16] LABS: ALT 57 U/L (4-49); AST 44 U/L (17-59); African American GFR (CKD) >90 (>60 ml/min/1.73 sqM); Albumin 4.6 g/dL (3.5-5.0); Alkaline Phosphatase 82 U/L (38-126); Anion Gap 9 mmol/L; Blood Urea Nitrogen 21 mg/dL (9-20); Calcium 9.6 mg/dL (8.4-10.2); Carbon Dioxide 24 mmol/L (22-30); Chloride 104 mmol/L (98-107); Glucose 333 mg/dL (74-99); Non-African American GFR(CKD) >90 (>60 ml/min/1.73 sqM); Potassium 4.6 mmol/L (3.5-5.1); Sodium 137 mmol/L (137-145); Total Bilirubin 0.7 mg/dL (0.2-1.3)
--- NOTE | 2024-09-03 15:47 | XR ---
EXAMINATION TYPE: XR foot complete LT DATE OF EXAM: 09/03/2024 COMPARISON: 05/05/2024 HISTORY: Pain TECHNIQUE: 3 view left foot FINDINGS: There is amputation of the distal fifth metatarsal and digit. Soft tissue wound is over the amputation site. No obvious cortical erosion evident. Three-phase bone scan could be performed for s ufficient clinical suspicion of osteomyelitis. Previous foreign body is not identified. IMPRESSION: 1. Soft tissue wound over the distal fifth metatarsal. Radiographic evidence of osteomyelitis not ev ident. Follow-up 3 phase bone scan can be performed for sufficient clinical suspicion. [facility], Workstation: [facility], 09/03/2024 3:45 PM
[2024-09-03 16:06] VITALS: BP 133/79; PULSE 82
[2024-09-03] MEDS: INSULIN REGULAR 100 UNIT/ML VIAL (IV) IV ONE (16:06)
[2024-09-03 16:09] LABS: Glucose,Whole Blood 307 mg/dL (70-110)
[2024-09-03 16:30] LABS: Glucose,Whole Blood 257 mg/dL (70-110)
== END 2024-09-03 16:34 | disposition home or self-care (01) ==
LOC: EC 13:47
CPT/HCPCS: 36415; 80053; 85025; 96374; 99284

== ENCOUNTER 2024-11-02 01:07 | Emergency (ER) | payer MEDICARE ==
[2024-11-02 01:21] LABS: Glucose,Whole Blood 29 mg/dL (70-110)
[2024-11-02] MEDS: DEXTROSE 50% SYRINGE 50 ML IVP STA (01:26)
[2024-11-02 01:28] VITALS: RESP 18
[2024-11-02 01:31] LABS: Glucose,Whole Blood 173 mg/dL (70-110)
[2024-11-02 01:31] LABS: Glucose,Whole Blood 26 mg/dL (70-110)
[2024-11-02 01:34] VITALS: TEMP 97.6
--- NOTE | 2024-11-02 01:41 | ED ---
General Adult HPI - General Chief complaint: Recheck/Abnormal Lab/Rx Stated complaint: Vomiting, weakness, diabetic Time Seen by Provider: 11/02/24 01:24 Source: patient Mode of arrival: wheelchair Limitations: altered mental status - History of Present Illness Initial comments: 64-year-old man who was brought to the emergency department by an associate to have evaluation for altered mental status. Patient initially not able to give any history. -: unknown - Related Data Previous Rx's Medication Instructions Recorded Insulin Glargine [Lantus Vial] 70 unit SQ DAILY #10 ml 09/03/24 Allergies Allergy/AdvReac Type Severity Reaction Status Date / Time No Known Allergies Allergy Verified 11/02/24 01:28 Review of Systems ROS Statement: Those systems with pertinent positive or pertinent negative responses have been documented in the HPI. ROS Other: All systems not noted in ROS Statement are negative. Limitations: ROS unobtainable due to patients medical condition Past Medical History Past Medical History: Diabetes Mellitus Additional Past Medical History / Comment(s): neuropathy, History of Any Multi-Drug Resistant Organisms: None Reported Past Surgical History: Orthopedic Surgery Additional Past Surgical History / Comment(s): LT KNEE SCOPE, 5th left toe amputation Past Anesthesia/Blood Transfusion Reactions: No Reported Reaction Past Psychological History: No Psychological Hx Reported Smoking Status: Current every day smoker Past Alcohol Use History: None Reported Past Drug Use History: None Reported - Past Family History Sister(s) Family Medical History: Cancer General Exam General appearance: obtunded Head exam: Present: atraumatic, normocephalic Eye exam: Present: normal appearance, PERRL. Absent: scleral icterus, conjunctival injection Neck exam: Present: normal inspection, full ROM. Absent: tenderness, meningismus Respiratory exam: Present: normal lung sounds bilaterally. Absent: respiratory distress, wheezes, rales, rhonchi, stridor, accessory muscle use Cardiovascular Exam: Present: regular rate, normal rhythm, normal heart sounds. Absent: systolic murmur, diastolic murmur, rubs, gallop GI/Abdominal exam: Present: soft. Absent: distended, tenderness, guarding, rebound, rigid, mass Extremities exam: Present: normal inspection, normal capillary refill. Absent: pedal edema, calf tenderness Back exam: Present: normal inspection. Absent: vertebral tenderness Neurological exam: Present: altered, CN II-XII intact. Absent: motor sensory deficit Skin exam: Present: warm, intact, normal color, diaphoretic. Absent: rash Course Vital Signs 11/02/24 11/02/24 11/02/24 01:23 01:33 02:28 Temperature 97.6 F Pulse Rate 81 71 Respiratory 18 19 Rate Blood Pressure 183/87 90/72 O2 Sat by Pulse 93 L 99 Oximetry 11/02/24 11/02/24 11/02/24 03:28 04:28 05:28 Temperature Pulse Rate 62 60 60 Respiratory 18 18 18 Rate Blood Pressure 110/64 104/61 112/61 O2 Sat by Pulse 99 99 99 Oximetry - Reevaluation(s) Reevaluation #1: 11/02/24 01:42 Patient is 64-year-old man brought to have evaluation for altered mental status. There was no history available. The patient is diaphoretic and confused. Accu-Chek finds blood sugar 29 and the patient is given dextrose. The patient rapidly became alert and began to answer questions. The patient does not know how he came to be in emergency department. He states that he has had previous episodes of hypoglycemia and this feels similar. Patient denies chest pain, dyspnea. EKG Findings - EKG Results: EKG: interpreted by ERMD, sinus rhythm (With occasional supraventricular complex, rate 81 bpm), normal axis, normal QRS, normal ST/T Medical Decision Making - Medical Decision Making \ Was pt. sent in by a medical professional or institution (ROBERTO Winchester, FENCE INST[employer]ER FOREMAN, urgent care, hospital, or [facility]...) When possible be specific @ -[No] Did you speak to anyone other than the patient for history (EMS, parent, family, police, friend...)? What history was obtained from this source @ -[No] Did you review nursing and triage notes (agree or disagree)? Why? @ -[I reviewed and agree with nursing and triage notes] Were old charts reviewed (outside hosp., previous admission, EMS record, old EK G, old radiological studies, urgent care reports/EKG's, [facility] records)? Report findings @ -[No old charts were reviewed] Differential Diagnosis (chest pain, altered mental status, abdominal pain women, abdominal pain men, vaginal bleeding, weakness, fever, dyspnea, syncope, headache, dizziness, GI bleed, back pain, seizure, CVA, palpatations, mental health, musculoskeletal)? @ -[Differential Altered Mental Status: Hypoglycemia, DKA, hypercapnia, ETOH, overdose, CO poisoning, trauma, myxedema coma, HTN encephalopathy, infection, encephalitis, psychosis, intercranial hemorrhage, hepatic encephalopathy, meningitis, CVA, this is not meant to be an all-inclusive list EKG interpreted by me (3pts min.). @ -[I interpreted as above] X-rays interpreted by me (1pt min.). @ -[None done] CT interpreted by me (1pt min.). @ -[None done] U/S interpreted by me (1pt. min.). @ -[None done] What testing was considered but not performed or refused? (CT, X-rays, U/S, labs)? Why? @ -[None] What meds were considered but not given or refused? Why? @ -[None] Did you discuss the management of the patient with other professionals (professionals i.e. , PA, FENCE INSTALLER FOREMAN, lab, RT, psych nurse, social media intern, lawyer criminal, teacher, housing management officer, mental health case manager)? Give summary @ -[No] Was smoking cessation discussed for >3mins.? @ -[No] Was critical care preformed (if so, how long)? @ -[No] Were there social determinants of health that impacted care today? How? (Homelessness, low income, unemployed, alcoholism, drug addiction, transportation, low edu. Level, literacy, decrease access to med. care, fci, rehab)? @ -[No] Was there de-escalation of care discussed even if they declined (Discuss DNR or withdrawal of care, Hospice)? DNR status @ -[No] What co-morbidities impacted this encounter? (DM, HTN, Smoking, COPD, CAD, Cancer, CVA, ARF, Chemo, Hep., AIDS, mental health diagnosis, sleep apnea, morbid obesity)? @ -[Diabetes Was patient admitted / discharged? Hospital course, mention meds given and route, prescriptions, significant lab abnormalities, going to OR and other pertinent info. @ -[Patient is a 64-year-old man with altered mental status who was found to have hypoglycemia. His condition rapidly improved with treatment. He is feeling well and would like to go home. Undiagnosed new problem with uncertain prognosis? @ -[No] Drug Therapy requiring intensive monitoring for toxicity (Heparin, Nitro, Insulin, Cardizem)? @ -[No] Were any procedures done? @ -[No] Diagnosis/symptom? @ -[Acute altered mental status Acute hypoglycemia Acute, or Chronic, or Acute on Chronic? @ -[Acute Uncomplicated (without systemic symptoms) or Complicated (systemic symptoms)? @ -[Complicated by altered mental status Side effects of treatment? @ -[No] Exacerbation, Progression, or Severe Exacerbation? @ -[No] Poses a threat to life or bodily function? How? (Chest pain, USA, MD, pneumonia, PE, COPD, DKA, ARF, appy, cholecystitis, CVA, Diverticulitis, Homicidal, Suicidal, threat to staff... and all critical care pts) @ -[Low likelihood of threat to life All treatments are based on ideal body weight as in ED triage - Lab Data Result diagrams: 11/02/24 01:30 11/02/24 01:30 Lab Results 11/02/24 11/02/24 11/02/24 Range/Units 01:19 01:25 01:29 WBC (3.8-10.6) k/uL RBC (4.30-5.90) m/uL Hgb (13.0-17.5) gm/dL Hct (39.0-53.0) % MCV (80.0-100.0) fL MCH (25.0-35.0) pg MCHC (31.0-37.0) g/dL RDW (11.5-15.5) % Plt Count (150-450) k/uL MPV Neutrophils % % Lymphocytes % % Monocytes % % Eosinophils % % Basophils % % Neutrophils # (1.3-7.7) k/uL Lymphocytes # (1.0-4.8) k/uL Monocytes # (0-1.0) k/uL Eosinophils # (0-0.7) k/uL Basophils # (0-0.2) k/uL Sodium (137-145) mmol/L Potassium (3.5-5.1) mmol/L Chloride (98-107) mmol/L Carbon Dioxide (22-30) mmol/L Anion Gap mmol/L BUN (9-20) mg/dL Creatinine (0.66-1.25) mg/dL Est GFR (CKD-EPI)AfAm (>60 ml/min/1.73 sqM) Est GFR (CKD-EPI)NonAf (>60 ml/min/1.73 sqM) Glucose (74-99) mg/dL POC Glucose (mg/dL) 29 L* 26 L* 173 H (70-110) mg/dL POC Glu General Helper ID Sina Love Calcium (8.4-10.2) mg/dL Total Bilirubin (0.2-1.3) mg/dL AST (17-59) U/L ALT (4-49) U/L Alkaline Phosphatase (38-126) U/L Troponin I (0.000-0.034) ng/mL Total Protein (6.3-8.2) g/dL Albumin (3.5-5.0) g/dL 11/02/24 11/02/24 11/02/24 Range/Units 01:30 01:30 01:30 WBC 21.6 H (3.8-10.6) k/uL RBC 4.98 (4.30-5.90) m/uL Hgb 15.3 (13.0-17.5) gm/dL Hct 45.6 (39.0-53.0) % MCV 91.4 (80.0-100.0) fL MCH 30.8 (25.0-35.0) pg MCHC 33.7 (31.0-37.0) g/dL RDW 12.8 (11.5-15.5) % Plt Count 202 (150-450) k/uL MPV 8.6 Neutrophils % 83 % Lymphocytes % 11 % Monocytes % 5 % Eosinophils % 1 % Basophils % 0 % Neutrophils # 17.9 H (1.3-7.7) k/uL Lymphocytes # 2.3 (1.0-4.8) k/uL Monocytes # 1.0 (0-1.0) k/uL Eosinophils # 0.1 (0-0.7) k/uL Basophils # 0.1 (0-0.2) k/uL Sodium 141 (137-145) mmol/L Potassium 3.8 (3.5-5.1) mmol/L Chloride 107 (98-107) mmol/L Carbon Dioxide 26 (22-30) mmol/L Anion Gap 8 mmol/L BUN 24 H (9-20) mg/dL Creatinine 0.58 L (0.66-1.25) mg/dL Est GFR (CKD-EPI)AfAm >90 (>60 ml/min/1.73 sqM) Est GFR (CKD-EPI)NonAf >90 (>60 ml/min/1.73 sqM) Glucose 22 L* (74-99) mg/dL POC Glucose (mg/dL) (70-110) mg/dL POC Glu General Helper ID Calcium 10.0 (8.4-10.2) mg/dL Total Bilirubin 0.9 (0.2-1.3) mg/dL AST 38 (17-59) U/L ALT 46 (4-49) U/L Alkaline Phosphatase 78 (38-126) U/L Troponin I <0.012 (0.000-0.034) ng/mL Total Protein 8.4 H (6.3-8.2) g/dL Albumin 5.1 H (3.5-5.0) g/dL 11/02/24 11/02/24 11/02/24 Range/Units 02:01 03:33 05:22 WBC (3.8-10.6) k/uL RBC (4.30-5.90) m/uL Hgb (13.0-17.5) gm/dL Hct (39.0-53.0) % MCV (80.0-100.0) fL MCH (25.0-35.0) pg MCHC (31.0-37.0) g/dL RDW (11.5-15.5) % Plt Count (150-450) k/uL MPV Neutrophils % % Lymphocytes % % Monocytes % % Eosinophils % % Basophils % % Neutrophils # (1.3-7.7) k/uL Lymphocytes # (1.0-4.8) k/uL Monocytes # (0-1.0) k/uL Eosinophils # (0-0.7) k/uL Basophils # (0-0.2) k/uL Sodium (137-145) mmol/L Potassium (3.5-5.1) mmol/L Chloride (98-107) mmol/L Carbon Dioxide (22-30) mmol/L Anion Gap mmol/L BUN (9-20) mg/dL Creatinine (0.66-1.25) mg/dL Est GFR (CKD-EPI)AfAm (>60 ml/min/1.73 sqM) Est GFR (CKD-EPI)NonAf (>60 ml/min/1.73 sqM) Glucose (74-99) mg/dL POC Glucose (mg/dL) 72 130 H 134 H (70-110) mg/dL POC Glu General Helper ID Yvon Torres Calcium (8.4-10.2) mg/dL Total Bilirubin (0.2-1.3) mg/dL AST (17-59) U/L ALT (4-49) U/L Alkaline Phosphatase (38-126) U/L Troponin I (0.000-0.034) ng/mL Total Protein (6.3-8.2) g/dL Albumin (3.5-5.0) g/dL Disposition Clinical Impression: Hypoglycemia Disposition: HOME SELF-CARE Condition: Good Instructions (If sedation given, give patient instructions): Hypoglycemia in a Person with Diabetes (DC) Is patient prescribed a controlled substance at d/c from ED?: No Referrals: None,Stated [Primary Care Provider] - 1-2 days
[2024-11-02 01:52] LABS: Basophils # (A) 0.1 k/uL (0-0.2); Basophils % (A) 0 %; Eosinophils # (A) 0.1 k/uL (0-0.7); Eosinophils % (A) 1 %; HCT 45.6 % (39.0-53.0); HGB 15.3 gm/dL (13.0-17.5); Lymphocytes # (A) 2.3 k/uL (1.0-4.8); Lymphocytes % (A) 11 %; MCH 30.8 pg (25.0-35.0); MCHC 33.7 g/dL (31.0-37.0); MCV 91.4 fL (80.0-100.0); Mean Platelet Volume 8.6; Monocytes % (A) 5 %; Neutrophils # (A) 17.9 k/uL (1.3-7.7); Neutrophils % (A) 83 %; Platelet Count 202 k/uL (150-450); RBC 4.98 m/uL (4.30-5.90); RDW 12.8 % (11.5-15.5); WBC 21.6 k/uL (3.8-10.6)
[2024-11-02 02:16] LABS: Glucose,Whole Blood 72 mg/dL (70-110)
[2024-11-02 02:18] LABS: ALT 46 U/L (4-49); AST 38 U/L (17-59); African American GFR (CKD) >90 (>60 ml/min/1.73 sqM); Albumin 5.1 g/dL (3.5-5.0); Alkaline Phosphatase 78 U/L (38-126); Anion Gap 8 mmol/L; Blood Urea Nitrogen 24 mg/dL (9-20); Carbon Dioxide 26 mmol/L (22-30); Chloride 107 mmol/L (98-107); Non-African American GFR(CKD) >90 (>60 ml/min/1.73 sqM); Potassium 3.8 mmol/L (3.5-5.1); Sodium 141 mmol/L (137-145); Total Bilirubin 0.9 mg/dL (0.2-1.3); Total Protein 8.4 g/dL (6.3-8.2)
[2024-11-02 02:33] LABS: Glucose 22 mg/dL (74-99)
[2024-11-02 03:34] LABS: Glucose,Whole Blood 130 mg/dL (70-110)
[2024-11-02 05:24] LABS: Glucose,Whole Blood 134 mg/dL (70-110)
[2024-11-02 05:51] VITALS: BP 112/61; PULSE 60
== END 2024-11-02 05:47 | disposition home or self-care (01) ==
LOC: EC 01:07
DX: E11.649 Type 2 diabetes mellitus with hypoglycemia without coma (principal); F17.200 Nicotine dependence, unspecified, uncomplicated
CPT/HCPCS: 36415; 80053; 84484; 85025; 93005; 96374; 99285

== ENCOUNTER → 2024-11-07 | Outpatient (CLI) | payer MEDICARE ==
--- NOTE | 2024-11-07 10:50 | XR ---
EXAMINATION TYPE: XR foot limited LT DATE OF EXAM: 11/07/2024 COMPARISON: 2 views 09/03/2024 CLINICAL INDICATION: Male, 64 years old with history of previous little toe amputation with persisten t wound and pain, [id number] FT 2V ABELARDO; FINDINGS: Plate and screw fixation distal fibula as well as transverse syndesmotic screws. Corticated ossific densities below the medial malleolus compatible with sequela of old injury. Small posterior and moderate size plantar calcaneal spurs. Mild degenerative change first MTP joint. There is amputat ion at the level of the distal third fifth metatarsal shaft and neck. Bony irregularity here has a si milar configuration compared to 09/03/2024. No progressive osteolysis. Overlying wound remains. IMPRESSION: Previous amputation at the level of the distal shaft fifth metatarsal. Persistent soft tissue wound h ere. Bony irregularity at the osteotomy margin shows the same appearance compared to 09/03/2024 argui ng against osteomyelitis. [facility], , 11/07/2024 10:48 AM
[2024-11-07 16:02] LABS: ALT 42 U/L (10-49); AST 29 U/L (14-35); Albumin 4.3 g/dL (3.8-4.9); Albumin/Globulin Ratio 1.43 Ratio (1.60-3.17); Alkaline Phosphatase 88 U/L (41-126); BUN/Creat Ratio 23.43 Ratio (12.00-20.00); Blood Urea Nitrogen 16.4 mg/dL (9.0-27.0); Calcium 9.5 mg/dL (8.7-10.3); Carbon Dioxide 25.5 mmol/L (21.6-31.8); Chloride 101 mmol/L (96-109); Glucose 219 mg/dL (70-110); Potassium 4.6 mmol/L (3.5-5.5); Sodium 137 mmol/L (135-145); Total Bilirubin 0.4 mg/dL (0.3-1.2); Total Protein 7.3 g/dL (6.2-8.2)
[2024-11-07 16:27] LABS: Prealbumin 17.8 mg/dL (18.0-42.0)
== END | disposition home or self-care (01) ==
LOC: LABWHC1 09:57
PROVIDERS: ATTEND Family Medicine
DX: E11.621 Type 2 diabetes mellitus with foot ulcer (principal); E11.65 Type 2 diabetes mellitus with hyperglycemia; Z89.422 Acquired absence of other left toe(s); E11.40 Type 2 diabetes mellitus with diabetic neuropathy, unspecified; L97.509 Non-pressure chronic ulcer of other part of unspecified foot with unspecified severity
CPT/HCPCS: 36415; 80053; 83036; 84134; 85652

== ENCOUNTER 2025-01-15 21:37 | Emergency (ER) | payer MEDICARE ==
[2025-01-15 21:56] LABS: Glucose,Whole Blood 156 mg/dL (70-110)
--- NOTE | 2025-01-15 21:57 | ED ---
General Adult HPI - General Stated complaint: Neuro Symptoms Time Seen by Provider: 01/15/25 21:40 - History of Present Illness Initial comments: Patient is 64-year-old gentleman past medical history of diabetes presenting today for right sided weakness. Patient was just discharged from the hospital earlier today after being treated for a diabetic foot infection. He was discharged on Zyvox. Gave himself his Zyvox 1 to 2 hours prior to arrival. About an hour prior to arrival he began having right sided weakness and decreased sensation on the RUE and RLE. States he feels like he cannot move his right leg and notes decreased sensation in the right leg and right arm. He denies headache, dizziness, chest pain, shortness of breath, changes in vision, slurred speech, difficulty with word finding. He has no history of prior stroke. Denies history hypertension. Is not on blood thinners, does not believe he was given any blood thinners at the hospital he was recently admitted to. Did have surgery to remove a toe on his left foot due to his foot infection. - Related Data Previous Rx's Medication Instructions Recorded Insulin Glargine (Lantus) [Lantus 70 unit SQ DAILY #10 ml 09/03/24 Vial] Allergies Allergy/AdvReac Type Severity Reaction Status Date / Time No Known Allergies Allergy Verified 01/15/25 22:06 Review of Systems ROS Statement: Those systems with pertinent positive or pertinent negative responses have been documented in the HPI. ROS Other: All systems not noted in ROS Statement are negative. Past Medical History Past Medical History: Diabetes Mellitus Additional Past Medical History / Comment(s): neuropathy, History of Any Multi-Drug Resistant Organisms: None Reported Past Surgical History: Orthopedic Surgery Additional Past Surgical History / Comment(s): LT KNEE SCOPE, 5th left toe amputation Past Anesthesia/Blood Transfusion Reactions: No Reported Reaction Past Psychological History: No Psychological Hx Reported Smoking Status: Current every day smoker Past Alcohol Use History: None Reported Past Drug Use History: None Reported - Past Family History Sister(s) Family Medical History: Cancer General Exam - General Exam Comments Initial Comments: PE: CONSTITUTIONAL: No apparent distress, well appearing SKIN: Warm, dry, no jaundice, hives or petechiae, superficial ulcerative wound at distal lateral left foot EYES: Pupils are equally round, extraocular movements intact without nystagmus, clear conjunctiva, non-icteric sclera HENT: Normocephalic, atraumatic, moist mucus membranes, oropharynx clear without exudates NECK: , Full range of motion, normal appearance PULMONARY: Clear to auscultation without wheezes, rhonchi, or rales, normal excursion, no accessory muscle use and no stridor CARDIOVASCULAR: Regular rate, rhythm, normal S1 and S2. No appreciated murmurs, rubs or gallops. Strong radial pulses with intact distal perfusion. No lower extremity edema GASTROINTESTINAL: Soft, active bowel sounds throughout, non-tender, non- distended, no palpable masses, no rebound or guarding. No hepatosplenomegaly GENITOURINARY: MUSCULOSKELETAL: Extremities have no gross deformity NEUROLOGIC:_a/o x 3, GCS 15, normal mentation and speech. Cranial nerves: II (visual patton without defects), III, IV and (extraocular movements are intact, pupils are equal with normal reaction to light), V (intact facial sensation and jaw opening), VII (no facial droop), IX and X (normal palate movement, midline uvula, normal voice), XI (symmetrical shoulder shrug and lateral head rotation against resistance), XII (midline tongue protrusion). No abnormal movements. Normal muscle tone. Decreased sensation on the right upper and right lower extremity compared to left upper and left lower extremity, no effort against gravity when right leg is lifted, mild drift of the right upper extremity PSYCHIATRIC:_normal mood and affect, thought process is clear and linear Course Vital Signs 01/15/25 01/15/25 01/15/25 22:03 22:35 22:50 Temperature 97.1 F L Pulse Rate 76 79 80 Respiratory 18 17 17 Rate Blood Pressure 149/80 158/58 155/84 O2 Sat by Pulse 100 97 97 Oximetry 01/15/25 01/15/25 01/15/25 23:05 23:20 23:27 Temperature Pulse Rate 82 81 78 Respiratory 18 17 17 Rate Blood Pressure 146/94 132/83 139/69 O2 Sat by Pulse 98 97 96 Oximetry 01/15/25 01/15/25 01/15/25 23:30 23:35 23:40 Temperature Pulse Rate 79 81 81 Respiratory 17 18 18 Rate Blood Pressure 139/69 139/69 139/69 O2 Sat by Pulse 96 97 98 Oximetry 01/15/25 01/16/25 01/16/25 23:50 00:00 00:10 Temperature Pulse Rate 78 77 81 Respiratory 18 18 17 Rate Blood Pressure 150/71 150/71 111/86 O2 Sat by Pulse 97 98 97 Oximetry 01/16/25 01/16/25 01/16/25 00:20 00:30 00:40 Temperature Pulse Rate 79 78 86 Respiratory 18 17 21 Rate Blood Pressure 146/74 146/74 152/75 O2 Sat by Pulse 98 98 98 Oximetry 01/16/25 00:50 Temperature Pulse Rate 89 Respiratory 18 Rate Blood Pressure 142/76 O2 Sat by Pulse 98 Oximetry - Reevaluation(s) Reevaluation #1: Code thrombolytics was called due to last known well being within 4.5 hours of arrival. Patient's blood pressure 132 systolic. Patient immediately taken to CT scanner. [facility] 5 01/15/25 21:53 Reevaluation #2: Discussed case with Dr. Sheffield, will review imaging and call back with recommendations 01/15/25 21:56 Reevaluation #3: Spoke w/ Dr. Sheffield, recommends tNK. Ordered immediately. Informed consent was obtained from the patient. He did consent to TNK administration. 01/15/25 22:15 Reevaluation #4: Patient had developed new onset aphasia. Contacted Dr. Sheffield, recommended repeat CT brain CTA. This was performed and showed bilateral subarachnoid hemorrhages. Page Dr. Sheffield to discuss further, anticipate transfer to [facility]. Called pharmacistVern to ask for available options for tNK reversal, not aware of any at this time. Will continue to search for reversal protocol while awaiting return call from Dr. Sheffield. 01/15/25 23:28 Reevaluation #5: Case discussed with Dr. Sheffield, recommends 10 units cryoprecipitate, repeat head CT in 6 hours, keep systolic blood pressure less than 160. Will transfer to [facility]. Updated patient to findings of new SAH and need for transfer. He is agreeable plan for transfer. Is able to now lift his right lower extremity off of the bed however does remain somewhat aphasic and dysarthric. 01/15/25 23:42 EKG Findings - EKG Comments: EKG Findings:: Sinus rhythm, rate 81 bpm WI interval 190 ms QT/QTc 357/395 ms, normal axis, T wave does appear enlarged in lead V1, Q waves lead V2 no ST elevations or depressions, artifact present, no arrhythmia Medical Decision Making - Medical Decision Making Was pt. sent in by a medical professional or institution (, PA, CHURCH SUPERVISOR, urgent care, hospital, or prison...) When possible be specific @ -No Did you speak to anyone other than the patient for history (EMS, parent, family, police, friend...)? What history was obtained from this source @ -No Did you review nursing and triage notes (agree or disagree)? Why? @ -I reviewed nursing and triage notes- Of note states patient presents for right-sided weakness beginning about 1 hour prior to arrival, just discharged from [facility] after being treated for foot infection Were old charts reviewed (outside hosp., previous admission, EMS record, old EKG, old radiological studies, urgent care reports/EKG's, prison records)? Report findings @ -Medical records reviewed- Foot x-ray done on 11/07/2024 showed soft tissue wound lateral left foot, bony irregularity at the osteotomy margin, showing similar. To x-ray done in 2023 arguing against osteomyelitis Differential Diagnosis (chest pain, altered mental status, abdominal pain women, abdominal pain men, vaginal bleeding, weakness, fever, dyspnea, syncope, headache, dizziness, GI bleed, back pain, seizure, CVA, palpatations, mental health, musculoskeletal)? @ -Differential CVA Ischemic stroke, hemorrhagic stroke, brain tumor, atypical migraine, Wernicke's encephalopathy, seizure, multiple sclerosis, meningitis, encephalitis, hypoglycemia, Guillain-Cowan, electrolytes disturbance, myasthenia gravis.... This is not meant to be an all-inclusive list EKG interpreted by me (3pts min.). @ -As above X-rays interpreted by me (1pt min.). @Personally viewed chest x-ray, I see no cardiomegaly, consolidations or pleural effusions agrees radiologist interpretation CT interpreted by me (1pt min.). @ -I personally reviewed initial CT brain, I see no evidence of hemorrhage or mass effect, CTA reviewed I see no evidence of large vessel occlusion Repeat CT brain was reviewed and showed what appeared to be left sided SAH, radiologist report identifies bilateral SAH, "Development of bilateral frontal subarachnoid hemorrhage with left greater than right no definitive intraparenchymal hemorrhage or midline shift, remote lacunar injury with nonspecific white matter changes likely secondary to chronic microangiopathy", I agree with radiologist interpretation U/S interpreted by me (1pt. min.). @ -None done What testing was considered but not performed or refused? (CT, X-rays, U/S, labs)? Why? @ -None Did you discuss the management of the patient with other professionals (professionals i.e. Dr., PA, CHURCH SUPERVISOR, lab, RT, psych nurse, clinical social worker, mechanics supervisor, teacher, deputy juvenile officer, case folder)? Give summary Case was discussed with Dr. Sheffield,, [facility] recommended CT brain, CTA will review upon reviewing images CT brain and CTA, Dr. Sheffield called and recommended tNK administration, appreciate recs. Please see ED course above regarding development of SAH and coordination of care with Dr. Sheffield. Was smoking cessation discussed for >3mins.? @ -No Was critical care preformed (if so, how long)? 45 Were there social determinants of health that impacted care today? How? (Homelessness, low income, unemployed, alcoholism, drug addiction, transportation, low edu. Level, literacy, decrease access to med. care, fpc, rehab)? @ -No Was there de-escalation of care discussed even if they declined (Discuss DNR or withdrawal of care, Hospice)? @ -No What co-morbidities impacted this encounter? (DM, HTN, Smoking, COPD, CAD, C ancer, CVA, ARF, Chemo, Hep., AIDS, mental health diagnosis, sleep apnea, morbid obesity)? @ DM Was patient admitted / discharged? Hospital course, mention meds given and route, prescriptions, significant lab abnormalities, going to OR and other pertinent info. 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 Patient seen and assessed on arrival, NIH of 5 for right lower extremity weakness, slight drift in right upper extremity. No history of prior CVA. Not on blood thinners. Confirmed that patient had only minor procedure performed for his diabetic foot ulcer. Stroke alert activated. Ultimately administered tNK after negative CT brain. Discussed risk and benefits with patient, including increased risk of serious intracranial bleeding potentially causing or serious disability. Patient was understanding of this and agreeable to tNK administration. Of note troponin elevated 0.167. Patient does not have a STEMI on EKG and denies any chest pain or shortness of breath at this time. Patient began having aphasia and dysarthria. CT brain and CTA repeated. CT brain shows new subarachnoid hemorrhage. Dr. Sheffield was contacted, recommends cryoprecipitate administration, 10 units, maintaining systolic blood pressure less than 150, blood pressure is currently controlled, transfer to [facility]. Updated patient to these findings, discussed plan for transfer. Neville patel agreeable w/ plan of care. Case additionally discussed with Dr. Samuel, [facility] ED, kindly accepts patient for transfer. Just prior to EMS arrival blood bank notified community coordinator of no cryoprecipitate availability. EMS arrived to transfer patient shortly after this and was transferring pt out of ED as I was made aware of this, therefor additional reversal agents were unable to be considered and ordered. It was requested that EMS transport pt as stat transfer with lights and sirens in order to get pt to receiving facility [facility]. Undiagnosed new problem with uncertain prognosis? @ -No Drug Therapy requiring intensive monitoring for toxicity (Heparin, Nitro, Insulin, Cardizem)? @ -No Were any procedures done? @ -No Diagnosis/symptom? @CVA with hemorrhagic conversion Acute, or Chronic, or Acute on Chronic? acute Uncomplicated (without systemic symptoms) or Complicated (systemic symptoms)? complicated Exacerbation, Progression, or Severe Exacerbation? @ -No Poses a threat to life or bodily function? How? (Chest pain, [place], [place], pneumonia, PE, COPD, DKA, ARF, appy, cholecystitis, CVA, Diverticulitis, Homicidal, Suicidal, threat to staff... and all critical care pts) Yes - Lab Data Result diagrams: 01/15/25 22:13 01/15/25 22:13 Lab Results 01/15/25 01/15/25 01/15/25 Range/Units 21:45 22:13 22:13 WBC 7.6 (3.8-10.6) k/uL RBC 3.78 L (4.30-5.90) m/uL Hgb 11.3 L (13.0-17.5) gm/dL Hct 33.7 L (39.0-53.0) % MCV 89.3 (80.0-100.0) fL MCH 30.0 (25.0-35.0) pg MCHC 33.6 (31.0-37.0) g/dL RDW 14.4 (11.5-15.5) % Plt Count 150 (150-450) k/uL MPV 9.3 Neutrophils % 69 % Lymphocytes % 23 % Monocytes % 4 % Eosinophils % 2 % Basophils % 0 % Neutrophils # 5.2 (1.3-7.7) k/uL Lymphocytes # 1.8 (1.0-4.8) k/uL Monocytes # 0.3 (0-1.0) k/uL Eosinophils # 0.1 (0-0.7) k/uL Basophils # 0.0 (0-0.2) k/uL Poikilocytosis Slight PT 11.2 (10.0-12.5) sec INR 1.0 (<1.2) APTT 24.3 (22.0-30.0) sec Sodium (137-145) mmol/L Potassium (3.5-5.1) mmol/L Chloride (98-107) mmol/L Carbon Dioxide (22-30) mmol/L Anion Gap mmol/L BUN (9-20) mg/dL Creatinine (0.66-1.25) mg/dL Est GFR (CKD-EPI)AfAm (>60 ml/min/1.73 sqM) Est GFR (CKD-EPI)NonAf (>60 ml/min/1.73 sqM) Glucose (74-99) mg/dL POC Glucose (mg/dL) 156 H (70-110) mg/dL POC Glu Guest Service Supervisor ID Raciel Carranza Calcium (8.4-10.2) mg/dL Total Bilirubin (0.2-1.3) mg/dL AST (17-59) U/L ALT (4-49) U/L Alkaline Phosphatase (38-126) U/L Creatine Kinase (55-170) U/L Troponin I (0.000-0.034) ng/mL Total Protein (6.3-8.2) g/dL Albumin (3.5-5.0) g/dL Blood Type Blood Type Confirm Blood Type Recheck Bld Type Recheck Status Antibody Screen Spec Expiration Date 01/15/25 01/15/25 01/15/25 Range/Units 22:13 22:13 22:13 WBC (3.8-10.6) k/uL RBC (4.30-5.90) m/uL Hgb (13.0-17.5) gm/dL Hct (39.0-53.0) % MCV (80.0-100.0) fL MCH (25.0-35.0) pg MCHC (31.0-37.0) g/dL RDW (11.5-15.5) % Plt Count (150-450) k/uL MPV Neutrophils % % Lymphocytes % % Monocytes % % Eosinophils % % Basophils % % Neutrophils # (1.3-7.7) k/uL Lymphocytes # (1.0-4.8) k/uL Monocytes # (0-1.0) k/uL Eosinophils # (0-0.7) k/uL Basophils # (0-0.2) k/uL Poikilocytosis PT (10.0-12.5) sec INR (<1.2) APTT (22.0-30.0) sec Sodium 137 (137-145) mmol/L Potassium 4.1 (3.5-5.1) mmol/L Chloride 103 (98-107) mmol/L Carbon Dioxide 27 (22-30) mmol/L Anion Gap 7 mmol/L BUN 21 H (9-20) mg/dL Creatinine 0.57 L (0.66-1.25) mg/dL Est GFR (CKD-EPI)AfAm >90 (>60 ml/min/1.73 sqM) Est GFR (CKD-EPI)NonAf >90 (>60 ml/min/1.73 sqM) Glucose 134 H (74-99) mg/dL POC Glucose (mg/dL) (70-110) mg/dL POC Glu Guest Service Supervisor ID Calcium 8.8 (8.4-10.2) mg/dL Total Bilirubin 0.6 (0.2-1.3) mg/dL AST 34 (17-59) U/L ALT 31 (4-49) U/L Alkaline Phosphatase 75 (38-126) U/L Creatine Kinase 52 L (55-170) U/L Troponin I 0.178 H* (0.000-0.034) ng/mL Total Protein 7.1 (6.3-8.2) g/dL Albumin 3.7 (3.5-5.0) g/dL Blood Type Blood Type Confirm B Positive Blood Type Recheck Bld Type Recheck Status Antibody Screen Spec Expiration Date 01/15/25 01/16/25 Range/Units 23:48 00:56 WBC (3.8-10.6) k/uL RBC (4.30-5.90) m/uL Hgb (13.0-17.5) gm/dL Hct (39.0-53.0) % MCV (80.0-100.0) fL MCH (25.0-35.0) pg MCHC (31.0-37.0) g/dL RDW (11.5-15.5) % Plt Count (150-450) k/uL MPV Neutrophils % % Lymphocytes % % Monocytes % % Eosinophils % % Basophils % % Neutrophils # (1.3-7.7) k/uL Lymphocytes # (1.0-4.8) k/uL Monocytes # (0-1.0) k/uL Eosinophils # (0-0.7) k/uL Basophils # (0-0.2) k/uL Poikilocytosis PT (10.0-12.5) sec INR (<1.2) APTT (22.0-30.0) sec Sodium (137-145) mmol/L Potassium (3.5-5.1) mmol/L Chloride (98-107) mmol/L Carbon Dioxide (22-30) mmol/L Anion Gap mmol/L BUN (9-20) mg/dL Creatinine (0.66-1.25) mg/dL Est GFR (CKD-EPI)AfAm (>60 ml/min/1.73 sqM) Est GFR (CKD-EPI)NonAf (>60 ml/min/1.73 sqM) Glucose (74-99) mg/dL POC Glucose (mg/dL) 159 H (70-110) mg/dL POC Glu Guest Service Supervisor ID Raciel Carranza Calcium (8.4-10.2) mg/dL Total Bilirubin (0.2-1.3) mg/dL AST (17-59) U/L ALT (4-49) U/L Alkaline Phosphatase (38-126) U/L Creatine Kinase (55-170) U/L Troponin I (0.000-0.034) ng/mL Total Protein (6.3-8.2) g/dL Albumin (3.5-5.0) g/dL Blood Type B Positive Blood Type Confirm Blood Type Recheck No Previous Record Bld Type Recheck Status CABO Indicated Antibody Screen NEGATIVE Spec Expiration Date 01/18/20252347 Disposition Clinical Impression: Cerebrovascular accident (CVA) Disposition: OTHER INSTITUTION NOT DEFINED Condition: Stable Referrals: Gt Azevedo MD [STAFF PHYSICIAN] - 1-2 days - Out of Hospital Transfer - Req. Specs Out of Hospital Transfer - Requested Specifics: Other Emergency Center ([facility])
[2025-01-15 22:06] VITALS: TEMP 97.1
--- NOTE | 2025-01-15 22:12 | XR ---
EXAMINATION TYPE: XR chest 1V DATE OF EXAM: 01/15/2025 10:07 PM COMPARISON: None TECHNIQUE: XR chest 1V Frontal view of the chest. CLINICAL INDICATION:Male, 64 years old with history of altered mental status; FINDINGS: Patient is rotated which limits evaluation. Lungs/Pleura: There is no evidence of pleural effusion, focal consolidation, or pneumothorax. Senesc ent parenchymal change. Pulmonary vascularity: Unremarkable. Heart/mediastinum: Cardiomediastinal silhouette is unremarkable. Musculoskeletal: No acute osseous pathology. IMPRESSION: No acute cardiopulmonary disease/process. [facility], , 01/15/2025 10:10 PM
--- NOTE | 2025-01-15 22:16 | CT ---
EXAMINATION TYPE: CODE STROKE: CT brain wo contr CT DLP: 1802.1 mGycm, Automated exposure control for dose reduction was used. DATE OF EXAM: 01/15/2025 10:03 PM COMPARISON: CT brain 10/10/2023 CLINICAL INDICATION:Male, 64 years old with history of Neuro deficit, acute, stroke suspected, LKW on e hour ago right leg weakness. TECHNIQUE: Brain: Multiple axial CT images of the brain were obtained without IV contrast. . Coronal and sagitta l reformats reviewed. FINDINGS: Brain: Extra-axial spaces: No abnormal extra-axial fluid collections. Ventricular system: Within normal limits Cerebral parenchyma: Cerebral atrophy. No acute intraparenchymal hemorrhage or mass effect. The davenport -white junction is well differentiated. Scattered hypoattenuating areas are seen within the periventr icular white matter. Cerebellum: Unremarkable. Mass effect: No evidence of midline shift. Intracranial vasculature: Atherosclerotic calcifications of the intracranial vessels. Soft tissues: Normal. Calvarium/osseous structures: No depressed skull fracture. Paranasal sinuses and mastoid air cells: Mild scattered paranasal sinus disease. Visualized orbits: Orbital contents are intact. IMPRESSION: 1. No acute intracranial process. 2. Nonspecific white matter changes, likely secondary to chronic small vessel ischemic disease. [facility], , 01/15/2025 10:14 PM
[2025-01-15] MEDS: T.ENECTEPLASE 5 MG/ML VIAL IVP STA (22:19)
--- NOTE | 2025-01-15 22:24 | CT ---
EXAMINATION TYPE: CT angio head neck CT DLP: 1802.1 mGycm, Automated exposure control for dose reduction was used. DATE OF EXAM: 01/15/2025 10:15 PM COMPARISON: CT brain 01/15/2025, 10/10/2023. CLINICAL INDICATION:Male, 64 years old with history of Neuro deficit, acute, stroke suspected; PHH, L KW one hour ago right leg weakness TECHNIQUE: Axially acquired helical CT angiogram of the head and neck was obtained with contrast util izing 75 cc of Isovue-370 administered intravenously. Axial images are supplemented with 3D reconstru ctions which were post-processed at an independent workstation. NASCET criteria used. FINDINGS: CTA HEAD: No evidence of acute intracranial hemorrhage, mass effect, or midline shift. The ventricles, sulci, a nd cisterns are unremarkable. The visualized portions of the internal carotid arteries, middle cerebral arteries, anterior cerebral arteries, and posterior cerebral arteries are patent. The basilar and vertebral arteries are patent. CTA NECK: Right Carotid System: The common carotid artery and external carotid artery are patent. Moderate calcified plaque at the ca rotid bifurcation with approximately 10% stenosis at the origin of the internal carotid artery. The r emaining portions of the internal carotid artery demonstrate normal size without significant narrowin g. Left Carotid System: The common carotid artery and external carotid artery are patent. Moderate calcified plaque at the ca rotid bifurcation with approximately 10% stenosis of the origin of the internal carotid artery. The r emaining portions of the internal carotid artery demonstrate normal size without significant narrowin g. Vertebral arteries are patent without evidence hemodynamically significant stenosis. Left vertebral a rtery is dominant. There is a three-vessel aortic arch. The origins of the great vessels are patent. No evidence of hemo dynamically significant stenosis. Subcentimeter hypodense nodules within the right thyroid lobe with a peripherally calcified right thy roid lobe subcentimeter nodule. IMPRESSION: 1. No evidence of dissection of the cervical internal carotid arteries or vertebral arteries. Moderat e calcified plaque at the bilateral carotid bifurcations with approximately 10% stenosis at the origi ns of the bilateral internal carotid arteries. 2. No evidence of high-grade stenosis or intracranial aneurysm. [facility], , 01/15/2025 10:21 PM
[2025-01-15 22:26] LABS: Basophils % (A) 0 %; Eosinophils # (A) 0.1 k/uL (0-0.7); Eosinophils % (A) 2 %; HCT 33.7 % (39.0-53.0); HGB 11.3 gm/dL (13.0-17.5); Lymphocytes # (A) 1.8 k/uL (1.0-4.8); Lymphocytes % (A) 23 %; MCHC 33.6 g/dL (31.0-37.0); MCV 89.3 fL (80.0-100.0); Mean Platelet Volume 9.3; Monocytes # (A) 0.3 k/uL (0-1.0); Monocytes % (A) 4 %; Neutrophils # (A) 5.2 k/uL (1.3-7.7); Neutrophils % (A) 69 %; Platelet Count 150 k/uL (150-450); Poikilocytosis Slight; RBC 3.78 m/uL (4.30-5.90); RDW 14.4 % (11.5-15.5); WBC 7.6 k/uL (3.8-10.6)
[2025-01-15 22:35] LABS: Partial Thromboplastin Time 24.3 sec (22.0-30.0); Prothrombin Time 11.2 sec (10.0-12.5)
[2025-01-15 22:40] LABS: ALT 31 U/L (4-49); AST 34 U/L (17-59); African American GFR (CKD) >90 (>60 ml/min/1.73 sqM); Albumin 3.7 g/dL (3.5-5.0); Alkaline Phosphatase 75 U/L (38-126); Anion Gap 7 mmol/L; Blood Urea Nitrogen 21 mg/dL (9-20); Calcium 8.8 mg/dL (8.4-10.2); Carbon Dioxide 27 mmol/L (22-30); Chloride 103 mmol/L (98-107); Creatine Kinase 52 U/L (55-170); Glucose 134 mg/dL (74-99); Non-African American GFR(CKD) >90 (>60 ml/min/1.73 sqM); Potassium 4.1 mmol/L (3.5-5.1); Sodium 137 mmol/L (137-145); Total Bilirubin 0.6 mg/dL (0.2-1.3); Total Protein 7.1 g/dL (6.3-8.2)
--- NOTE | 2025-01-15 23:28 | CT ---
EXAMINATION TYPE: CODE STROKE: CT brain wo contr CT DLP: 1284.7 mGycm, Automated exposure control for dose reduction was used. DATE OF EXAM: 01/15/2025 11:24 PM COMPARISON: CT brain 01/15/2025, 10/10/2023, CTA head and neck 01/15/2025. CLINICAL INDICATION:Male, 64 years old with history of Neuro deficit, acute, tNK given, now apashia, repeat scan requested without new labs per Dr. Ly due to worsening/ changing aphasia TECHNIQUE: Brain: Multiple axial CT images of the brain were obtained without IV contrast. . Coronal and sagitta l reformats reviewed. FINDINGS: Brain: Extra-axial spaces: Development of left frontal subarachnoid hemorrhage with additional subarachnoid hemorrhage within the high right frontal region. Ventricular system: Within normal limits Cerebral parenchyma: Evaluation is limited due to recent contrast administration. No gross evidence o f acute intraparenchymal hemorrhage or mass effect. 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 The davenport-white junction is well differentiated. Scattered hypoattenuating areas are seen within the periventricular white matter. Cerebellum: Unremarkable. Mass effect: No evidence of midline shift. Intracranial vasculature: Atherosclerotic calcifications of the intracranial vessels. Soft tissues: Normal. Calvarium/osseous structures: No depressed skull fracture. Paranasal sinuses and mastoid air cells: Clear Visualized orbits: Orbital contents are intact. IMPRESSION: Evaluation is limited due to recent contrast administration. 1. Development of bilateral frontal subarachnoid hemorrhage with left greater than right. No definit barrie intraparenchymal hemorrhage. No midline shift. 2. 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 Findings called to and discussed with Dr. Althea Ly at 11:24 PM on 01/15/2025. [facility], , 01/15/2025 11:26 PM
--- NOTE | 2025-01-15 23:33 | CT ---
EXAMINATION TYPE: CT angio head neck CT DLP: 1007 and 93.5 mGycm, Automated exposure control for dose reduction was used. DATE OF EXAM: 01/15/2025 11:29 PM COMPARISON: CTA head and neck from earlier today. CT brains from earlier today. CLINICAL INDICATION:Male, 64 years old with history of Neuro deficit, acute, stroke suspected; PHH, r epeat scan requested without new labs per Dr. Ly due to worsening/ changing aphasia TECHNIQUE: Axially acquired helical CT angiogram of the head and neck was obtained with contrast util izing 75 cc of Isovue-370 administered intravenously. NASCET criteria used. FINDINGS: CTA HEAD: No evidence of mass effect or midline shift. The ventricles, sulci, and cisterns are unremarkable. Bi lateral frontal region subarachnoid hemorrhage which is better appreciated on recent noncontrast CT h ead. The visualized portions of the internal carotid arteries, middle cerebral arteries, anterior cerebral arteries, and posterior cerebral arteries are patent. The basilar and vertebral arteries are patent. CTA NECK: Right Carotid System: The common carotid artery and external carotid artery are patent. Moderate calcified plaque at the ca rotid bifurcation with approximately 10% stenosis at the origin of the internal carotid artery. The r emaining portions of the internal carotid artery demonstrate normal size without significant narrowin g. Left Carotid System: The common carotid artery and external carotid artery are patent. Moderate calcified plaque at the ca rotid bifurcation with approximately 10% stenosis of the origin of the internal carotid artery. The r emaining portions of the internal carotid artery demonstrate normal size without significant narrowin g. Vertebral arteries are patent without evidence hemodynamically significant stenosis. Left vertebral a rtery is dominant. There is a three-vessel aortic arch. The origins of the great vessels are patent. No evidence of hemo dynamically significant stenosis. Subcentimeter hypodense nodules within the right thyroid lobe with a peripherally calcified right thy roid lobe subcentimeter nodule. Nonspecific mildly enlarged right paratracheal lymph nodes measuring up to 1.3 cm short axis. IMPRESSION: 1. No evidence of dissection of the cervical internal carotid arteries or vertebral arteries. Moderat e calcified plaque at the bilateral carotid bifurcations with approximately 10% stenosis at the origi ns of the bilateral internal carotid arteries. 2. No evidence of high-grade stenosis or intracranial aneurysm. 3. Known bilateral frontal subarachnoid hemorrhage is better appreciated on noncontrast CT brain from earlier today. [facility], , 01/15/2025 11:30 PM
[2025-01-15 23:42] VITALS: RESP 18
[2025-01-16 00:57] LABS: Glucose,Whole Blood 159 mg/dL (70-110)
[2025-01-16 00:59] VITALS: BP 142/76; PULSE 89
== END 2025-01-16 01:15 | disposition other institution (70) ==
LOC: EC 21:37
DX: I60.9 Nontraumatic subarachnoid hemorrhage, unspecified (principal); I61.9 Nontraumatic intracerebral hemorrhage, unspecified; E11.9 Type 2 diabetes mellitus without complications; F17.200 Nicotine dependence, unspecified, uncomplicated; Z79.4 Long term (current) use of insulin
CPT/HCPCS: 99291 ×2; 96360; 96361; 36415 ×2; 93005; 86900; 86901; 80053; 82550; 84484; 85025; 85610; 85730; 86850; 71045; 70496; 70450; 70498; 37195; J3101; Q9967